=== PATIENT | female | born 1940 | race Caucasian/White ===

== ENCOUNTER 2023-12-21 18:04 | Observation (INO) | payer MEDICARE, MEDICAID, SELFPAY ==
--- NOTE | ~2023-12-21 | CT_ITS ---
EXAMINATION: CT abdomen pelvis wo con DATE: 12/21/2023 23:50 INDICATION: abd pain TECHNIQUE: Computed tomography (CT) of the abdomen and pelvis was performed without intravenous contr ast. Automated exposure control and iterative reconstruction technique were employed. The dose-length product was 1048.33 mGy-cm. COMPARISON: None. FINDINGS: Lower thorax: Aortic valve and coronary artery calcifications. Moderate-sized hiatal hernia. Liver: Normal. Biliary/Gallbladder: Gallbladder is absent. No bile duct dilation. Pancreas: No mass or duct dilation. Spleen: Normal. Adrenals:No mass. Kidneys: No suspicious mass, obstructing stone, or hydronephrosis. Multiple bilateral simple renal cy sts, measuring up to 6.1 cm on the right. GI tract: No small or large bowel dilation. Dilated appendix with surrounding inflammatory change. In tact wall. No abscess. Diverticulosis without diverticulitis. Mesentery/Peritoneum: No ascites, mass, or free air. Retroperitoneum: No mass. Atherosclerotic abdominal aortic and/or arterial calcifications. Pelvis: Distended urinary bladder without wall thickening. Absent uterus. Normal bilateral ovaries. Soft Tissues: Soft tissues and body wall unremarkable. Bones: No acute osseous finding. IMPRESSION: Acute uncomplicated appendicitis. Reviewed, dictated and finalized at location K.
[2023-12-21 18:41] VITALS: BP 120/47; PULSE 68; RESP 20; TEMP 36.6; O2SAT 100
--- NOTE | 2023-12-21 18:45 | ED.ABDPAIN ---
HPI - Abdominal Pain General Chief Complaint: Abdominal Pain <ALBERTA Charlton Last Filed: 12/22/23 01:23> Stated Complaint: abd pain <ALBERTA Charlton Last Filed: 12/22/23 01:23> Time Seen by Provider: 12/21/23 18:45 <Lillian Min PA-C - Last Filed: 12/22/23 01:23> Focused HPI: This is an 83-year-old female that presents to the emergency department for right-sided abdominal pain. This has been going on for a couple of days. Reports associated dysuria. Denies vomiting or diarrhea. GENERAL: Well-appearing, well-nourished, and in no acute distress. HEAD: Normocephalic, atraumatic. CHEST: Clear to auscultation. ?No respiratory distress. HEART: Regular rate and rhythm.? NEURO: ?Alert and oriented x3. Patient screened in triage and initial orders placed.? ?Additional care and disposition to be based upon?diagnostic testing and treatment. <ALBERTA Charlton Last Filed: 12/22/23 01:23> Related Data Home Medications: Home Medications Medication Instructions Recorded Confirmed Allergy Relief (cetirizine) 10 mg PO HS 12/22/23 12/22/23 B12 Active 1,000 mcg PO DAILY 12/22/23 12/22/23 Lasix 40 mg PO EVERY OTHER DAY 12/22/23 12/22/23 Mylanta Gas Maximum Strength 30 ml PO Q4-8H PRN Abdominal 12/22/23 12/22/23 Discomfort acetaminophen 325 mg capsule 650 mg PO Q6-8H PRN pain 12/22/23 12/22/23 atenolol 50 mg tablet 50 mg PO BID hypertension 12/22/23 12/22/23 atorvastatin 40 mg tablet 40 mg PO HS 12/22/23 12/22/23 cholecalciferol (vitamin D3) 125 mcg PO DAILY 12/22/23 12/22/23 citalopram 20 mg PO DAILY 12/22/23 12/22/23 dicyclomine 20 mg PO TID 12/22/23 12/22/23 donepezil 10 mg PO HS 12/22/23 12/22/23 hydralazine 25 mg PO TID 12/22/23 12/22/23 hydroxyzine HCl 25 mg PO DAILY 12/22/23 12/22/23 loperamide 2 mg PO DAILY PRN ibs 12/22/23 12/22/23 magnesium citrate 296 ml PO DAILY PRN Constipation 12/22/23 12/22/23 metoclopramide HCl 10 mg PO BID 12/22/23 12/22/23 mirtazapine 15 mg PO DAILY 12/22/23 12/22/23 omeprazole 40 mg PO DAILY 12/22/23 12/22/23 ondansetron 4 mg PO Q8-10H 12/22/23 12/22/23 oxybutynin chloride 5 mg PO BID 12/22/23 12/22/23 sucralfate 1 g PO QID 12/22/23 12/22/23 tramadol 50 mg PO Q8-12H PRN pain 12/22/23 12/22/23 <Lillian Min PA-C - Last Filed: 12/22/23 01:23> Allergies/Adverse Reactions: Allergies Allergy/AdvReac Type Severity Reaction Status Date / Time iodine Allergy Severe HIVES-SWELL Verified 12/21/23 18:41 ING <Lillian Min PA-C - Last Filed: 12/22/23 01:23> Review of Systems Review of Systems: CONSTITUTIONAL: Denies fever GASTROINTESTINAL: Reports abdominal pain. Denies nausea, vomiting, or diarrhea. GENITOURINARY: Reports dysuria <Lillian Min PA-C - Last Filed: 12/22/23 01:23> All systems reviewed & are unremarkable except as noted in HPI and below <Lillian Min PA-C - Last Filed: 12/22/23 01:23> [facility] Past Medical History Medical History: Medical History History of dementia History of hyperlipidemia History of hypertension <Lillian Min PA-C - Last Filed: 12/22/23 01:23> Social History Social History: Social History Substance use: never <Lillian Min PA-C - Last Filed: 12/22/23 01:23> Exam Narrative: GENERAL: Well-appearing, well-nourished, and in no acute distress. HEAD: Normocephalic, atraumatic. EYES: EOMI. CHEST: Clear to auscultation. No respiratory distress. No wheezes rales or rhonchi HEART: Regular rate and rhythm. No murmur heard. Normal peripheral pulses. ABDOMEN: Soft, nondistended, normal active bowel sounds. Tender to palpation in the right lower quadrant, without guarding EXTREMITIES: Normal range of motion. No edema. SKIN: Warm, dry, no rash. NEURO: No focal deficits. Alert and oriented x3. PSYCH: Normal mood and affect <Lillian Min PA-C - Last Filed:
[2023-12-21 22:43] VITALS: BP 158/96; PULSE 60; RESP 15; O2SAT 99
[2023-12-21 22:47] LABS: Basophils Percent Auto 0.3 % (0.2-1.2); Eosinophils Absolute Auto 0.1 K/mm3 (0-0.3); Eosinophils Percent Auto 1.1 % (0-4.4); Hematocrit 30.5 % (37.0-47.0); Hemoglobin 9.4 g/dL (12.0-15.0); Immature Granulocyte Absolute 0.06 K/mm3 (0.00-0.031); Immature Granulocyte Percent A 0.5 % (0-0.5); Lymphocytes Absolute Auto 3.95 K/mm3 (0.9-3.2); Lymphocytes Percent Auto 31.8 % (18.3-44.2); Mean Corpuscular HGB Conc 30.8 g/dl (32-36); Mean Corpuscular Hemoglobin 22.3 pg (26-34); Mean Corpuscular Volume 72.4 fl (80-100); Mean Platelet Volume 11.2 fl (7.4-10.4); Monocytes Absolute Auto 1.5 K/mm3 (0.1-0.6); Monocytes Percent Auto 11.7 % (2.6-8.5); Neutrophils Absolute Auto 6.8 K/mm3 (1.3-6.7); Neutrophils Percent Auto 54.6 % (45.5-73.1); Platelet Count Result 259 k/mm3 (150-375); Red Blood Count 4.21 M/mm3 (4.2-5.4); Red Cell Distribution Width 17.2 % (11.5-14.5); White Blood Count 12.4 K/mm3 (4.5-10.0)
[2023-12-21 23:07] LABS: Anisocytosis 1+; Hypochromasia 1+; Platelet Estimate Adequate (Adequate); Poikilocytosis 1+; Schistocytes None Seen
[2023-12-21 23:23] LABS: Alanine Aminotransferase 17 U/L (6-35); Albumin Level 3.9 g/dL (3.5-5.1); Alkaline Phosphatase 76 U/L (38-126); Anion Gap 10 mmol/L (4-12); Aspartate Amino Transferase 40 U/L (14-36); Bilirubin,Total 0.2 mg/dL (0.2-1.3); Blood Urea Nitrogen 22 mg/dL (7-17); Calcium 8.7 mg/dL (8.4-10.2); Carbon Dioxide 28 mmol/L (22-30); Chloride 95 mmol/L (98-107); Estimated CRCL calculation 32 ml/min; Estimated Glomerular Filt Rate 43; Glucose 103 mg/dL (65-110); Lipase 123 U/L (23-300); Potassium 3.9 mmol/L (3.4-5.0); Sodium 133 mmol/L (137-145)
[2023-12-22] VITALS (17 sets, daily range): BP systolic 116–174; BP diastolic 49–83; PULSE 55–66; RESP 10–18; TEMP 35.8–36.4; O2SAT 94–100; BMI 41.8
--- NOTE | 2023-12-22 00:09 | PC.NURSE ---
Patient advises she urinated in her pants. Patient cleaned up and repositioned.
[2023-12-22] MEDS: PIPERACILLN/TAZ 3.375GM/NS50ML 3.375 GM/50 ML BAG IVPB (00:51)
--- NOTE | 2023-12-22 00:52 | PM.IMHP ---
H&P: HPI History of Present Illness Date/Time: 12/22/23 00:52 Chief Complaint: abdominal pain Narrative: This is an 83-year-old female with past medical history significant for iron deficiency anemia, obesity, DJD, dyslipidemia. Patient presents to the emergency room due to right lower quadrant pain, denies any nausea, vomiting, diarrhea, fevers, rigors, chills. patient found to have acute uncomplicated appendicitis on CT of abdomen and pelvis EXAMINATION: CT abdomen pelvis wo con DATE: 12/21/2023 23:50 INDICATION: abd pain TECHNIQUE: Computed tomography (CT) of the abdomen and pelvis was performed without intravenous contrast. Automated exposure control and iterative reconstruction technique were employed. The dose-length product was 1048.33 mGy-cm. COMPARISON: None. FINDINGS: Lower thorax: Aortic valve and coronary artery calcifications. Moderate-sized hiatal hernia. Liver: Normal. Biliary/Gallbladder: Gallbladder is absent. No bile duct dilation. Pancreas: No mass or duct dilation. Spleen: Normal. Adrenals:No mass. Kidneys: No suspicious mass, obstructing stone, or hydronephrosis. Multiple bilateral simple renal cysts, measuring up to 6.1 cm on the right. GI tract: No small or large bowel dilation. Dilated appendix with surrounding inflammatory change. Intact wall. No abscess. Diverticulosis without diverticulitis. Mesentery/Peritoneum: No ascites, mass, or free air. Retroperitoneum: No mass. Atherosclerotic abdominal aortic and/or arterial calcifications. Pelvis: Distended urinary bladder without wall thickening. Absent uterus. Normal bilateral ovaries. Soft Tissues: Soft tissues and body wall unremarkable. Bones: No acute osseous finding. IMPRESSION: Acute uncomplicated appendicitis. Review of Systems Review of Systems: RLQ pain [facility] Past Medical History Medical History (Updated 12/22/23 @ 01:13 by Lillian Min PA-C) History of dementia History of hyperlipidemia History of hypertension Social History Social History (Updated 12/22/23 @ 00:25 by Lillian Min PA-C) Substance use: never Meds Home Medications and Allergies Allergies Allergy/AdvReac Type Severity Reaction Status Date / Time iodine Allergy Severe HIVES-SWELL Verified 12/21/23 18:41 ING Vital Signs Vital Signs - 24 hr 12/21/23 18:41 12/21/23 22:43 12/22/23 00:26 Temperature 97.8 F Pulse Rate 68 60 60 Respiratory Rate 20 15 15 Blood Pressure 120/47 L 158/96 H 116/76 Pulse Oximetry 100 99 100 Oxygen Delivery Room Air H&P: Results Labs Labs: Short CBC 12/21/23 Range/Units 22:38 WBC 12.4 H (4.5-10.0) K/mm3 Hgb 9.4 L (12.0-15.0) g/dL Hct 30.5 L (37.0-47.0) % Plt Count 259 (150-375) k/mm3 BMP 12/21/23 22:38 Sodium 133 L Potassium 3.9 Chloride 95 L Carbon Dioxide 28 BUN 22 H Creatinine 1.20 H Glucose 103 Calcium 8.7 Liver Function 12/21/23 Range/Units 22:38 Total Bilirubin 0.2 (0.2-1.3) mg/dL AST 40 H (14-36) U/L ALT 17 (6-35) U/L Alkaline Phosphatase 76 (38-126) U/L Albumin 3.9 (3.5-5.1) g/dL Assessment and Plan Assessment and plan (1) Appendicitis: Code(s): K37 - Unspecified appendicitis Status: Acute Assessment and Plan: admit to regular medical floor NPO General surgery consult started on Zosyn (2) Abdominal pain: Code(s): R10.9 - Unspecified abdominal pain Status: Acute Assessment and Plan: likely secondary to 1. (3) Hypochromic microcytic anemia: Code(s): D50.9 - Iron deficiency anemia, unspecified Status: Acute Assessment and Plan: Follow-up in outpatient setting (4) CKD (chronic kidney disease): Code(s): N18.9 - Chronic kidney disease, unspecified Status: Acute Assessment and Plan: continue to monitor BUN and creatinine Hospitalist MIPS Advance Care Plan I have confirmed that the patient's Adva
[2023-12-22] MEDS: ONDANSETRON INJ 4 MG/2 ML VIAL IV PUSH (01:34)
[2023-12-22] MEDS: MORPHINE SULFATE (*CRX) 2 MG/ML INJ IV PUSH (01:34)
--- NOTE | 2023-12-22 01:52 | PC.NURSE ---
Due to the patient having a history of dementia, Dr. Schultz requested that this RN obtain consent from family for a laparoscopic appendectomy. Family is very hesitant to sign consent because they have not met or spoke with the surgeon. This RN and EDP-Lillian Min attempted to answer questions, but family ultimately decided they were not comfortable signing consent until speaking with the operating surgeon. They were advised to come back early in the morning if they wish to speak with the surgeon.
--- NOTE | 2023-12-22 03:00 | ADMGEN ---
This patient, Susana Napoles, was admitted to 3 [facility] Surg Room 304-02. Patient/family oriented to hospital policies and general routines including ID bracelet, bed and alarms, visiting hours, pain management, procedures, bathroom and other care routines, personal items, smoking policy, room service/diet, and visiting hours. Information on how to activate the Rapid Response Team has been discussed. Patient/Family are encouraged to report perceived risks to care and to ask questions if they do not understand what they are told or what they should do.
[2023-12-22] MEDS: PIPERACILLIN/TAZ 2.25G/NS 50ML 2.25 GM/50 ML BAG IVPB (06:08)
[2023-12-22 06:11] LABS: Hematocrit 32.3 % (37.0-47.0); Hemoglobin 9.5 g/dL (12.0-15.0); Mean Corpuscular HGB Conc 29.4 g/dl (32-36); Mean Corpuscular Hemoglobin 21.8 pg (26-34); Mean Corpuscular Volume 74.3 fl (80-100); Mean Platelet Volume 11.4 fl (7.4-10.4); Platelet Count Result 220 k/mm3 (150-375); Red Blood Count 4.35 M/mm3 (4.2-5.4); Red Cell Distribution Width 17.2 % (11.5-14.5); White Blood Count 9.6 K/mm3 (4.5-10.0)
[2023-12-22 06:18] LABS: Prothrombin Time 13.9 Seconds (11.1-14.7)
[2023-12-22 06:25] LABS: Alanine Aminotransferase 15 U/L (6-35); Albumin Level 3.6 g/dL (3.5-5.1); Alkaline Phosphatase 67 U/L (38-126); Anion Gap 10 mmol/L (4-12); Aspartate Amino Transferase 24 U/L (14-36); Bilirubin,Total 0.3 mg/dL (0.2-1.3); Blood Urea Nitrogen 19 mg/dL (7-17); Calcium 8.5 mg/dL (8.4-10.2); Carbon Dioxide 26 mmol/L (22-30); Chloride 100 mmol/L (98-107); Estimated CRCL calculation 37 ml/min; Estimated Glomerular Filt Rate 47; Glucose 82 mg/dL (65-110); Potassium 3.6 mmol/L (3.4-5.0); Sodium 136 mmol/L (137-145)
--- NOTE | 2023-12-22 07:47 | ECG_ITS ---
Test Date: 2023-12-22 08:05:33 Measurements Intervals [place] Rate: 54 P: 74 [place]: 188 QRS: 16 QRSD: 97 T: 47 QT: 455 QTc: 434 Interpretive Statements SINUS BRADYCARDIA DELAYED PRECORDIAL R/S TRANSITION MINIMAL Q WAVES- LATERAL LEADS CONSIDER INFERIOR INFARCT, AGE INDETERMINATE NONSPECIFIC ST-T WAVE ABNORMALITY- LAT/HIGH LAT LEADS BASELINE ARTIFACT- I, II, V5-V6 ABNORMAL ECG No previous ECG available for comparison Electronically Signed On 12-22-2023 10:36:25 CDT by Shun Matthews D.O.
--- NOTE | 2023-12-22 08:02 | WPDANESEPPF ---
Anes - Initial Pre Proc Eval Procedure: Operation Date: 12/22/23 08:00 Proposed Procedures p Laparoscopic Appendectomy, possible Open - Calixto Schultz MD Date/Time: 12/22/23 08:02 Surgeon: Russel Escamilla MD Pre Op Diagnosis: abd pain Patient Data Age: 83 Gender: F Height: 1.55 m Weight: 100.3 kg Last Vital Signs Temp 96.5 F L 12/22/23 03:24 Pulse 55 L 12/22/23 03:24 Resp 14 12/22/23 03:24 BP 150/64 H 12/22/23 03:24 Pulse Ox 98 12/22/23 03:24 O2 Del Method Room Air 12/21/23 18:41 Allergies Allergy/AdvReac Type Severity Reaction Status Date / Time iodine Allergy Severe HIVES-SWELL Verified 12/21/23 18:41 ING Home Medications Medication Instructions Recorded Confirmed Type Allergy Relief (cetirizine) 10 mg PO HS 12/22/23 12/22/23 History B12 Active 1,000 mcg PO DAILY 12/22/23 12/22/23 History Lasix 40 mg PO EVERY OTHER DAY 12/22/23 12/22/23 History Mylanta Gas Maximum Strength 30 ml PO Q4-8H PRN Abdominal 12/22/23 12/22/23 History Discomfort acetaminophen 325 mg capsule 650 mg PO Q6-8H PRN pain 12/22/23 12/22/23 History atenolol 50 mg tablet 50 mg PO BID hypertension 12/22/23 12/22/23 History atorvastatin 40 mg tablet 40 mg PO HS 12/22/23 12/22/23 History cholecalciferol (vitamin D3) 125 mcg PO DAILY 12/22/23 12/22/23 History citalopram 20 mg PO DAILY 12/22/23 12/22/23 History dicyclomine 20 mg PO TID 12/22/23 12/22/23 History donepezil 10 mg PO HS 12/22/23 12/22/23 History hydralazine 25 mg PO TID 12/22/23 12/22/23 History hydroxyzine HCl 25 mg PO DAILY 12/22/23 12/22/23 History loperamide 2 mg PO DAILY PRN ibs 12/22/23 12/22/23 History magnesium citrate 296 ml PO DAILY PRN Constipation 12/22/23 12/22/23 History metoclopramide HCl 10 mg PO BID 12/22/23 12/22/23 History mirtazapine 15 mg PO DAILY 12/22/23 12/22/23 History omeprazole 40 mg PO DAILY 12/22/23 12/22/23 History ondansetron 4 mg PO Q8-10H 12/22/23 12/22/23 History oxybutynin chloride 5 mg PO BID 12/22/23 12/22/23 History sucralfate 1 g PO QID 12/22/23 12/22/23 History tramadol 50 mg PO Q8-12H PRN pain 12/22/23 12/22/23 History Laboratory Tests 12/21/23 12/22/23 22:38 05:54 WBC 12.4 H K/mm3 9.6 K/mm3 (4.5-10.0) (4.5-10.0) RBC 4.21 M/mm3 4.35 M/mm3 (4.2-5.4) (4.2-5.4) Hgb 9.4 L g/dL 9.5 L g/dL (12.0-15.0) (12.0-15.0) Hct 30.5 L % 32.3 L % (37.0-47.0) (37.0-47.0) MCV 72.4 L fl 74.3 L fl (80-100) (80-100) MCH 22.3 L pg 21.8 L pg (26-34) (26-34) MCHC 30.8 L g/dl 29.4 L g/dl (32-36) (32-36) RDW 17.2 H % 17.2 H % (11.5-14.5) (11.5-14.5) Plt Count 259 k/mm3 220 k/mm3 (150-375) (150-375) MPV 11.2 H fl 11.4 H fl (7.4-10.4) (7.4-10.4) Immature Gran % (Auto) 0.5 % (0-0.5) Neut % (Auto) 54.6 % (45.5-73.1) Lymph % (Auto) 31.8 % (18.3-44.2) [place] % (Auto) 11.7 H % (2.6-8.5) Eos % (Auto) 1.1 % (0-4.4) Baso % (Auto) 0.3 % (0.2-1.2) Lymph # (Auto) 3.95 H K/mm3 (0.9-3.2) [place] # (Auto) 1.5 H K/mm3 (0.1-0.6) Eos # (Auto) 0.1 K/mm3 (0-0.3) Baso # (Auto) 0.0 K/mm3 (0.0-0.1) Abs Immat Gran (auto) 0.06 H K/mm3 (0.00-0.031) Absolute Neuts (auto) 6.8 H K/mm3 (1.3-6.7) Absolute Nucleated RBC 0.000 K/mm3 (0.0-0.012) Nucleated RBC % 0.0 % (0.0-0.2) Platelet Estimate Adequate (Adequate) Hypochromasia 1+ Poikilocytosis 1+ Anisocytosis 1+ Schistocytes None seen PT 13.9 Seconds (11.1-14.7) INR 1.0 Sodium 133 L mmol/L 136 L mmol/L (137-145) (137-145) Potassium 3.9 mmol/L 3.6 mmol/L (3.4-5.0) (3.4-5.0) Chloride 95 L mmol/L 100 mmol/L (98-107) (98-107) Carbon Dioxide 28 mmol/L 26 mmol/L (22-30) (22-30) Anion Gap 10 mmol/L 10 mmol/L (4-12) (4-12) BUN 22 H mg/dL 19 H mg/dL (7-17) (7-17) Creatinine 1.20 H mg/dL 1.10
[2023-12-22] MEDS: LACTATED RINGERS 1,000 ML 30 ML IV CONT ×2 (08:05→09:40)
--- NOTE | 2023-12-22 08:09 | WPDHPUPDATE1 ---
History and Physical Update Update Date/Time: 12/22/23 08:09 History and Physical has been reviewed, including an updated exam of the patient. There are NO changes in the patient's condition. Risks, benefits, and alternatives have been discussed and questions answered. Patient agrees to proceed with procedure.
--- NOTE | 2023-12-22 08:10 | WPDCN ---
Assessment and Plan Assessment and plan (1) Acute appendicitis: Qualifiers: Acute appendicitis type: with localized peritonitis Appendicitis abscess presence: without abscess Appendicitis gangrene presence: without gangrene Appendicitis perforation presence: without perforation Qualified Code(s): K35.30 - Acute appendicitis with localized peritonitis, without perforation or gangrene Code(s): K35.80 - Unspecified acute appendicitis Status: Acute Assessment and Plan: Patient appears to have acute uncomplicated appendicitis. CT scan shows no periappendiceal abscess or perforation. White blood cell count is mildly elevated at around 12 - [id number]. Examination is consistent with acute appendicitis with moderate tenderness in right lower quadrant to palpation with some mild guarding. No generalized peritoneal signs. I have discussed proceeding with a laparoscopic appendectomy possible open appendectomy verses medical management with IV antibiotics and prolonged hospital admission and about a 40% chance of recurrent appendicitis within the next 2 years with the patient's . He understands and wishes to proceed with surgery for his who has dementia and cannot make the decision for herself. HPI Data of Consult Date/Time: 12/22/23 08:10 Requesting Physician: Russel Escamilla MD Primary Care Provider: Krishan BalderramaMD Consult Narrative Reason for consult: Acute appendicitis Narrative: Susana Napoles is a 83 year old female who is a skilled nursing patient. According to her she is having some pain in the right lower quadrant breast couple of days. White blood cell count of 12-13,000 emergency room which she was brought for having the pain. No fever. CT scan abdomen pelvis showed a dilated inflamed appendix with periappendiceal inflammation. No perforation or free air or abscess was seen. Patient is not on any blood thinners. Patient had previous cholecystectomy many years ago. Review of Systems Review of Systems: The remainder of the review of systems to include constitutional, HEENT, cardiovascular, respiratory, GI, , integumentary, musculoskeletal, endocrine, immunologic, hematologic, psychiatric, and neurologic are all negative except for which is mentioned above in the HPI. [facility] Past Medical History Medical History History of dementia History of hyperlipidemia History of hypertension Social History Social History Substance use: never Meds Home Medications and Allergies Home Medications Medication Instructions Recorded Confirmed Type Allergy Relief (cetirizine) 10 mg PO HS 12/22/23 12/22/23 History B12 Active 1,000 mcg PO DAILY 12/22/23 12/22/23 History Lasix 40 mg PO EVERY OTHER DAY 12/22/23 12/22/23 History Mylanta Gas Maximum Strength 30 ml PO Q4-8H PRN Abdominal 12/22/23 12/22/23 History Discomfort acetaminophen 325 mg capsule 650 mg PO Q6-8H PRN pain 12/22/23 12/22/23 History atenolol 50 mg tablet 50 mg PO BID hypertension 12/22/23 12/22/23 History atorvastatin 40 mg tablet 40 mg PO HS 12/22/23 12/22/23 History cholecalciferol (vitamin D3) 125 mcg PO DAILY 12/22/23 12/22/23 History citalopram 20 mg PO DAILY 12/22/23 12/22/23 History dicyclomine 20 mg PO TID 12/22/23 12/22/23 History donepezil 10 mg PO HS 12/22/23 12/22/23 History hydralazine 25 mg PO TID 12/22/23 12/22/23 History hydroxyzine HCl 25 mg PO DAILY 12/22/23 12/22/23 History loperamide 2 mg PO DAILY PRN ibs 12/22/23 12/22/23 History magnesium citrate 296 ml PO DAILY PRN Constipation 12/22/23 12/22/23 History metoclopramide HCl 10 mg PO BID 12/22/23 12/22/23 History mirtazapine 15 mg PO DAILY 12/22/23 12/22/23 History omeprazole 40 mg PO DAILY 12/22/23 12/22/23 History ondansetron 4 mg PO Q8-10H 12/22/23 12/22/23 History oxybutynin chloride 5 mg PO BID 12/22/23 12/22/23 Histor
--- NOTE | 2023-12-22 08:15 | SUR.PHASEI ---
FAMILY AT BEDSIDE, SPOKE WITH DR. CHOI AND DR. VILLASENOR. PATIENT IN NO ACUTE DISTRESS. ORIENTED X 3. DENIES PAIN. TRANSPORTED TO OR VIA BED.
[2023-12-22] MEDS: LIDO 1%/EPINEPHRINE 1:100,000 20 ML VIAL 30 ML INFILTRATE (08:55)
[2023-12-22] MEDS: BUPivacaine HCL 0.5% PF 30 ML VIAL INFILTRATE (08:56)
--- NOTE | 2023-12-22 09:04 | PC.NURSE ---
To OR per [Kimberly hunt and Mylajagruti randhawa], IV [ ]. Report given to [ ].Alejandro the night nurse gave report to OR. Pt left at 0750.
--- NOTE | 2023-12-22 09:50 | W.PM.PROC2 ---
Procedure Note - Detailed Date of Procedure 12/22/23 Pre-op Diagnosis Acute appendicitis Post-op Diagnosis Same Procedure Performed Laparoscopic appendectomy Surgeon Calixto Schultz MD Legal Specialist [facility] [place] Anesthesia General Indications Patient is a 3-year-old female [place]. She for last couple days been having some right lower quadrant abdominal pain. She was brought to the emergency room and found to have a mildly elevated white blood cell count around 13,000. CT scan abdomen pelvis showed a dilated and inflamed appendix consistent with uncomplicated non perforated appendicitis. She presents now for emergent laparoscopic appendectomy. Findings Appendix was moderately inflamed. It was not perforated and not gangrenous. There is no periappendiceal abscess. There were few omental adhesions prior paramedian incision many years ago for her open cholecystectomy. Adhesions were taken down easily with laparoscopic adhesiolysis and fabian. Description of Procedure After informed consent was obtained patient brought to the operating room she was placed supine position and general endotracheal anesthesia was administered. The abdomen was then prepped and draped usual sterile fashion after placement of Villatoro catheter to decompress the bladder. A time-out was then performed correctly identifying the patient as well as procedure to be performed. She was already on scheduled IV antibiotics. I entered the abdomen left upper quadrant utilizing a 5mm Optiview port. Once inside the abdomen insufflated to adequate pneumoperitoneum of 15mmHg of CO2. There were some omental adhesions to the right lower quadrant of the abdomen and the right lateral abdominal wall. A 5mm left-sided abdominal wall trocar was then placed and then utilizing laparoscopic fabian a for laparoscopic easy lysis of these omental adhesions off the anterior abdominal wall. Once this was done and then placed additional trocar ports included a 12mm periumbilical trocar port and then 2 more 5mm trocar ports in the suprapubic area and the right lower quadrant. I then utilizing laparoscopic instruments reflected the omentum cephalad. This exposed the cecum. I was then able to identify the inflamed appendix attached to the right lateral abdominal lower quadrant wall. At the tip it was apparent to the right fallopian tube and ovary. With blunt dissection utilizing laparoscopic instruments I was able to separate the ovary in the fallopian tube from the appendix. I then identified the base of the appendix and the base appeared to be without any inflammation. The appendix was elevated laparoscopic grasper and then a defect was made through the mesoappendix just at the base. A 45mm Endo-BRIAN stapler was then used to divide the appendix flush with the cecum. A vascular reload to the Endo-BRIAN stapler was then used to divide the mesoappendix. The appendix was then placed in Endo-Catch bag and brought out through the 12mm periumbilical trocar port. It was passed off the table sent to pathology for examination. There was a small amount of bleeding from the staple line to the mesoappendix placed this was treated electrocautery to achieve hemostasis. I then irrigated the right lower quadrant the abdomen sterile saline solution hemostasis on the staple lines were good. I then removed all the trocar ports under visualization all port sites appeared hemostatic. I then allowed the abdomen decompressed. The 12mm periumbilical trocar port fascial defect was then closed at the fascial level utilizing 0 Vicryl suture. The skin edges in all the port sites were then approximated utilizing a running subcuticular 4-0 Monocryl suture. The incisions were then cleaned the skin glue sterile dressings were applied. The patient tolerated the procedure well no complications. All sponges, needles, and instrument counts were correct at the end procedure. EBL was _15__cc. The patient was awakened an
[2023-12-22] MEDS: fentaNYL CITRATE INJ (*CRX) 100 MCG/2 ML VIAL 25 MCG IV PUSH ×2 (09:59→10:11)
--- NOTE | 2023-12-22 10:55 | PC.NURSE ---
Returned from OR per [ ]. Report received from [[email or web address] in pacu].
[2023-12-22] MEDS: CHOLECALCIFEROL 5,000 UNITS TABLET 5000 UNITS BY MOUTH (11:24)
[2023-12-22] MEDS: CYANOCOBALAMIN 1,000 MCG TABLET 1000 MCG PO (11:25)
[2023-12-22] MEDS: MIRTAZAPINE 15 MG TABLET PO (11:25)
[2023-12-22] MEDS: ENOXAPARIN 40 MG/0.4 ML SYRINGE SUB-Q (11:26)
[2023-12-22] MEDS: CITALOPRAM HYDROBROMIDE 20 MG TABLET PO (11:26)
[2023-12-22] MEDS: oxyCODONE HCL (*CRX) 5 MG TAB IR PO (11:26)
[2023-12-22] MEDS: SUCRALFATE 1 GM TABLET PO ×3 (11:29→21:03)
[2023-12-22] MEDS: hydrALAZINE HCL 25 MG TABLET PO ×2 (12:47→16:33)
[2023-12-22] MEDS: DICYCLOMINE HCL 10 MG CAPSULE 20 MG PO ×2 (12:47→16:33)
[2023-12-22] MEDS: oxyBUTYnin CHLORIDE 5 MG TABLET PO (16:33)
[2023-12-22] MEDS: atenoloL 50 MG TABLET PO (16:34)
[2023-12-22] MEDS: METOCLOPRAMIDE HCL 10 MG TABLET PO (16:34)
[2023-12-22] MEDS: PANTOPRAZOLE 40 MG TABLET PO (16:34)
[2023-12-22] MEDS: HYDROcodone/acetaminophen (*CRX) 5-325 MG TABLET 1 TAB PO (16:40)
[2023-12-22 18:49] LABS: Appearance Urine Clear (Clear); Bacteria Urine None Seen /hpf; Bilirubin Urine Negative (Negative); Blood Urine Negative (Negative); Color Urine Yellow (Yellow); Glucose Urine UA Negative (Negative); Ketones Urine Negative (Negative); Leukocyte Esterase Ur Trace LEU/UL (Negative); Need Manual Microscopic Reviewed; Nitrate Urine Negative (Negative); Non Pathogenic Casts 0-2; Protein Urine Trace mg/dL (Negative); Specific Grav Ur 1.014 (1.001-1.035); Squamous Epithelial Cell Urine None Seen /hpf (Few); Urobilinogen Urine 0.2 mg/dL (<2.0); pH Urine 6.5 (5.0-9.0)
[2023-12-22 19:01] LABS: Add Urine Microscopic? YES
[2023-12-22] MEDS: ATORVASTATIN 40 MG TABLET PO (21:03)
[2023-12-22] MEDS: LORATADINE 10 MG TABLET PO (21:03)
[2023-12-22] MEDS: DONEPEZIL HCL 10 MG TABLET PO (21:03)
[2023-12-23 04:00] VITALS: BP 142/52; PULSE 60; RESP 14; TEMP 36.3; O2SAT 96
[2023-12-23 06:22] LABS: Basophils Percent Auto 0.3 % (0.2-1.2); Eosinophils Percent Auto 0.1 % (0-4.4); Hematocrit 29.9 % (37.0-47.0); Immature Granulocyte Absolute 0.07 K/mm3 (0.00-0.031); Immature Granulocyte Percent A 0.6 % (0-0.5); Lymphocytes Absolute Auto 2.76 K/mm3 (0.9-3.2); Lymphocytes Percent Auto 22.9 % (18.3-44.2); Mean Corpuscular HGB Conc 30.1 g/dl (32-36); Mean Corpuscular Hemoglobin 22.3 pg (26-34); Mean Corpuscular Volume 74.2 fl (80-100); Mean Platelet Volume 11.7 fl (7.4-10.4); Monocytes Absolute Auto 1.2 K/mm3 (0.1-0.6); Monocytes Percent Auto 10.2 % (2.6-8.5); Neutrophils Percent Auto 65.9 % (45.5-73.1); Platelet Count Result 252 k/mm3 (150-375); Red Blood Count 4.03 M/mm3 (4.2-5.4); Red Cell Distribution Width 17.3 % (11.5-14.5); White Blood Count 12.1 K/mm3 (4.5-10.0)
[2023-12-23] MEDS: SUCRALFATE 1 GM TABLET PO ×2 (06:34→10:30)
[2023-12-23 06:39] LABS: Anion Gap 8 mmol/L (4-12); Blood Urea Nitrogen 17 mg/dL (7-17); Calcium 8.9 mg/dL (8.4-10.2); Carbon Dioxide 29 mmol/L (22-30); Chloride 98 mmol/L (98-107); Estimated CRCL calculation 37 ml/min; Estimated Glomerular Filt Rate 47; Glucose 88 mg/dL (65-110); Potassium 3.9 mmol/L (3.4-5.0); Sodium 135 mmol/L (137-145)
[2023-12-23] MEDS: ACETAMINOPHEN 500 MG TABLET 1000 MG PO (07:10)
[2023-12-23 08:00] VITALS: BP 125/53; PULSE 58; PULSE 61; RESP 16; TEMP 36.3; O2SAT 97; O2SAT 98
[2023-12-23] MEDS: ENOXAPARIN 40 MG/0.4 ML SYRINGE SUB-Q (08:00)
[2023-12-23] MEDS: FUROSEMIDE 40 MG TABLET PO (08:01)
[2023-12-23] MEDS: MIRTAZAPINE 15 MG TABLET PO (08:01)
[2023-12-23] MEDS: oxyBUTYnin CHLORIDE 5 MG TABLET PO (08:01)
[2023-12-23] MEDS: PANTOPRAZOLE 40 MG TABLET PO (08:01)
[2023-12-23] MEDS: CHOLECALCIFEROL 5,000 UNITS TABLET 5000 UNITS BY MOUTH (08:01)
[2023-12-23] MEDS: CITALOPRAM HYDROBROMIDE 20 MG TABLET PO (08:01)
[2023-12-23 08:02] VITALS: PULSE 58
[2023-12-23] MEDS: CYANOCOBALAMIN 1,000 MCG TABLET 1000 MCG PO (08:02)
[2023-12-23] MEDS: atenoloL 50 MG TABLET PO (08:02)
[2023-12-23] MEDS: DICYCLOMINE HCL 10 MG CAPSULE 20 MG PO ×2 (08:02→12:26)
[2023-12-23] MEDS: hydrOXYzine HCL 25 MG TABLET PO (08:02)
[2023-12-23] MEDS: hydrALAZINE HCL 25 MG TABLET PO ×2 (08:02→12:26)
[2023-12-23] MEDS: METOCLOPRAMIDE HCL 10 MG TABLET PO (08:02)
[2023-12-23 09:49] LABS: Procalcitonin 0.1 ng/mL
--- NOTE | 2023-12-23 11:51 | WPDPN ---
Progress Note: A&P Assessment and Plan (1) Acute appendicitis: Qualifiers: Acute appendicitis type: with localized peritonitis Appendicitis abscess presence: without abscess Appendicitis gangrene presence: without gangrene Appendicitis perforation presence: without perforation Qualified Code(s): K35.30 - Acute appendicitis with localized peritonitis, without perforation or gangrene Code(s): K35.80 - Unspecified acute appendicitis Status: Acute Assessment and Plan: Resolved. Postop day 1 after laparoscopic appendectomy. Tolerating regular diet and pain in the right lower quadrant has resolved. I think she can be discharged to a care facility today. Follow-up in the office and 2 weeks as noted instructions. Subjective Date/time seen: 12/23/23 11:51 Interval history: Patient is doing well today. Postop day 1 after laparoscopic appendectomy. No issues today. She tolerated regular diet. Right lower quadrant pain is now resolved. Seems to be medically stable. Exam GI: Other: Abdomen is soft and obese. Port site incisions are healing well without any redness or drainage. Minor tenderness around the port sites but right lower quadrant tenderness has now resolved. Objective Data Vital Signs Vital Signs: Vital Signs - 24 hr 12/22/23 16:00 12/22/23 16:34 12/22/23 12:50 Temperature 36.4 C 36.2 C L Pulse Rate 62 62 60 Respiratory Rate 16 14 Blood Pressure 174/83 H 143/53 H Pulse Oximetry 99 94 Oxygen Delivery 12/22/23 20:00 12/22/23 23:50 12/23/23 04:00 Temperature 36.2 C L 36.2 C L 36.3 C L Pulse Rate 62 60 60 Respiratory Rate 14 14 14 Blood Pressure 141/60 H 133/62 142/52 H Pulse Oximetry 96 96 96 Oxygen Delivery 12/23/23 08:02 12/23/23 08:00 12/23/23 08:00 Temperature 36.3 C L Pulse Rate 58 L 58 L 61 Respiratory Rate 16 Blood Pressure 125/53 L Pulse Oximetry 98 97 Oxygen Delivery Room Air Intake/Output Intake/Output: Intake & Output 12/20/23 12/21/23 12/22/23 12/23/23 23:59 23:59 23:59 23:59 Intake Total 690 540 Output Total 150 400 Balance 540 140 Meds/Results Medications: Active Medications Generic Name Dose Route Start Last Admin Trade Name Freq PRN Reason Stop Dose Admin Acetaminophen 1,000 mg 12/22/23 10:58 12/23/23 07:10 Acetaminophen 500 Mg Tablet PO 1,000 mg Q6H PRN Administration Mild Pain (1-3) or Fever Hydrocodone Bitart/Acetaminophen 1 tab 12/22/23 10:58 12/22/23 16:40 Hydrocodone/Acetaminophen (*Crx) 5-325 Mg Tablet PO 1 tab Q4H PRN Administration Pain Rated 4-6 Al Hydrox/Mg Hydrox/Simethicone 30 ml 12/22/23 11:17 Mag Hydrox/Al Hydrox/Simeth 30 Ml Udc PO Q6H PRN Indigestion Atenolol 50 mg 12/22/23 17:00 12/23/23 08:02 Atenolol 50 Mg Tablet PO 50 mg BID CARRIE Administration Atorvastatin Calcium 40 mg 12/22/23 21:00 12/22/23 21:03 Atorvastatin 40 Mg Tablet PO 40 mg HS CARRIE Administration Citalopram Hydrobromide 20 mg 12/22/23 12:00 12/23/23 08:01 Citalopram Hydrobromide 20 Mg Tablet PO 20 mg DAILY CARRIE Administration Cyanocobalamin 1,000 mcg 12/22/23 12:00 12/23/23 08:02 Cyanocobalamin 1,000 Mcg Tablet PO 1,000 mcg QAM CARRIE Administration Dicyclomine HCl 20 mg 12/22/23 13:00 12/23/23 08:02 Dicyclomine Hcl 10 Mg Capsule PO 20 mg TID CARRIE Administration Donepezil HCl 10 mg 12/22/23 21:00 12/22/23 21:03 Donepezil Hcl 10 Mg Tablet PO 10 mg HS CARRIE Administration Enoxaparin Sodium 40 mg 12/22/23 10:58 12/23/23 08:00 Enoxaparin 40 Mg/0.4 Ml Syringe SUB-Q 40 mg DAILY CARRIE Administration Furosemide 40 mg 12/23/23 09:00 12/23/23 08:01 Furosemide 40 Mg Tablet PO 40 mg Q48HR CARRIE Administration Hydralazine HCl 25 mg 12/22/23 13:00 12/23/23 08:02 Hydralazine Hcl 25 Mg Tablet PO 25 mg TID CARRIE Administration Hydroxyzine HCl 25 mg 12/23/23 09:00 12/23/23 08:02 [place]
[2023-12-23 12:49] LABS: SARS-CoV-2 RNA PCR Negative (Negative)
--- NOTE | 2023-12-23 14:17 | PM.DS ---
DS: Admitting Diagnosis Discharge Date 12/23/23 Admitting Diagnosis Acute appendicitis DS: Discharge Diagnosis Discharge Diagnosis (1) Acute appendicitis: Qualifiers: Acute appendicitis type: with localized peritonitis Appendicitis abscess presence: without abscess Appendicitis gangrene presence: without gangrene Appendicitis perforation presence: without perforation Qualified Code(s): K35.30 - Acute appendicitis with localized peritonitis, without perforation or gangrene Code(s): K35.80 - Unspecified acute appendicitis Status: Acute DS: Summary Hospital Course Hospital Course: This 83-year-old female with a past medical history dementia, resides at half-way facility permanently, and other comorbidities who was admitted on 12/21 with acute appendicitis. She was brought in with a chief complaint of right lower quadrant pain. Found to have acute uncomplicated appendicitis on CT of abdomen pelvis. On 12/21 Dr. Schultz general surgery performed a laparoscopic appendectomy without complications. The patient is discharged to home in stable condition on 12/22 as she is tolerating diet does not complain of abdominal pain and she has a benign abdominal exam. She will have a repeat CBCD in 2-3 days to monitor a mild leukocytosis although her procalcitonin is normal. She will follow-up with Dr. Schultz in the office. Status at Discharge Overall status at discharge: patient is back to baseline Time Spent with Patient Time attestation: Total time spent providing and/or coordinating discharge services: Time spent: Greater than 30 minutes Exam Const: General: comfortable and no acute distress Eyes: Pupils: Equal, round and reactive pupils present Neck: Neck: supple Resp: Effort & Inspection: normal respiratory effort Auscultation: clear to auscultation bilaterally Cardio: Rate: regular rate Rhythm: regular rhythm GI: Inspection: non-distended GI Palp: Yes Soft to palpation, No Tenderness to palpation present (GI) and No Guarding due to palpation present (GI) Auscultation: normal bowel sounds Extrem: General: no edema DS: Data Data Completed and Pending Pending studies at discharge: Pending at discharge 12/22/23 08:52 Surgical [PTH] Routine Labs on day of discharge: Labs from last 24 hours 12/23/23 12/23/23 12/23/23 12:08 05:46 05:42 WBC 12.1 H RBC 4.03 L Hgb 9.0 L Hct 29.9 L MCV 74.2 L MCH 22.3 L MCHC 30.1 L RDW 17.3 H Plt Count 252 MPV 11.7 H Immature Gran % (Auto) 0.6 H Neut % (Auto) 65.9 Lymph % (Auto) 22.9 [place] % (Auto) 10.2 H Eos % (Auto) 0.1 Baso % (Auto) 0.3 Lymph # (Auto) 2.76 [place] # (Auto) 1.2 H Eos # (Auto) 0.0 Baso # (Auto) 0.0 Abs Immat Gran (auto) 0.07 H Absolute Neuts (auto) 8.0 H Absolute Nucleated RBC 0.000 Nucleated RBC % 0.0 Sodium 135 L Potassium 3.9 Chloride 98 Carbon Dioxide 29 Anion Gap 8 BUN 17 Creatinine 1.10 H Estim Creat Clear Calc 37 Estimated GFR 47 L Glucose 88 Calcium 8.9 Magnesium 2.0 Procalcitonin 0.1 Urine Color Urine Appearance Urine pH Ur Specific [place] Urine Protein Urine Glucose (UA) Urine Ketones Ur Blood (Man) Urine Nitrate Urine Bilirubin Urine Urobilinogen Add Ur Microanalysis Leukocyte Esterase Rfl Urine RBC Urine WBC Ur Squamous Epith Cells Urine Bacteria Urine Casts SARS-CoV-2 RNA (RT-PCR) Negative 12/22/23 18:14 WBC RBC Hgb Hct MCV MCH MCHC RDW Plt Count MPV Immature Gran % (Auto) Neut % (Auto) Lymph % (Auto) [place] % (Auto) Eos % (Auto) Baso % (Auto) Lymph # (Auto) [place] # (Auto) Eos # (Auto) Baso # (Auto) Abs Immat Gran (auto) Absolute Neuts (auto) Absolute Nucleated RBC Nucleated RBC % Sodium Potassium Chloride Carbon Dioxide Anion Gap BUN Creatinine Estim Creat
== END 2023-12-23 13:15 ==
LOC: ANHED 12-22 01:13 → ANH3MEDSUR 12-22 02:35
PROVIDERS: Surgery; Admitting Provider Internal Medicine; Emergency Provider Physician Assistant; PCP Internal Medicine; Visit Provider General Practice
PROC: 0DTJ4ZZ Resection of Appendix, Percutaneous Endoscopic Approach (ICD-10-PCS; CPT 44970; principal; 2023-12-22 08:00)
DX: K35.80 Unspecified acute appendicitis (principal); D50.9 Iron deficiency anemia, unspecified; I12.9 Hypertensive chronic kidney disease with stage 1 through stage 4 chronic kidney disease, or unspecified chronic kidney disease; N18.9 Chronic kidney disease, unspecified; E78.5 Hyperlipidemia, unspecified; F03.90 Unspecified dementia, unspecified severity, without behavioral disturbance, psychotic disturbance, mood disturbance, and anxiety; E66.01 Morbid (severe) obesity due to excess calories; Z68.41 Body mass index [BMI] 40.0-44.9, adult; Z11.52 Encounter for screening for COVID-19
CPT/HCPCS: 44970; 36415; 74176; 80048; 80053; 81001; 83690; 83735; 84145; 85025; 85027; 85610; 87040; 87077; 87086; 87181; 87635; 88304; 93005; 94667; 96365; 96375; 96376; 99285; A9270; G0378; J0330; J1100; J1650; J2270; J2405; J2543; J2704; J3010; J7120

== ENCOUNTER 2024-11-17 13:49 | Inpatient (IN) | payer MEDICARE, MEDICAID, SELFPAY ==
[2024-11-17] VITALS (17 sets, daily range): BP systolic 110–151; BP diastolic 50–112; PULSE 61–73; RESP 16–24; TEMP 36.6–36.7; O2SAT 96–100; BMI 38.3
--- NOTE | 2024-11-17 14:13 | ECG_ITS ---
Test Date: 2024-11-17 14:20:15 Measurements Intervals [place] Rate: 59 P: 79 CO: 184 QRS: 2 QRSD: 101 T: 40 QT: 439 QTc: 437 Interpretive Statements SINUS BRADYCARDIA LEFT VENTRICULAR HYPERTROPHY WITH ST-T CHANGE CONSIDER INFERIOR INFARCT, AGE INDETERMINATE BORDERLINE ST-T WAVE ABNORMALITY- ANTEROLATERAL LEADS ABNORMAL ECG Compared to ECG 12/22/2023 08:05:33 No significant changes Electronically Signed On 11-17-2024 14:41:30 CDT by Shun Matthews D.O.
--- NOTE | 2024-11-17 14:16 | ED.SYNCOPE ---
HPI - Syncope General Chief Complaint: Altered Mental Status Stated Complaint: ams Time Seen by Provider: 11/17/24 14:12 History of Present Illness HPI narrative: Pt was having diarrhea and abdominal cramps and had unresponsive spell (syncope). On EMS arrival BP low but pt starting to wake up. On arrival in ER pt alert and oriented x 3. Pt says she has no abdominal pain now and feels better. Pt had no CP prior to or after event. Related Data Home Medications ?Medication ?Instructions ?Recorded ?Confirmed ?Last Taken ?Type Allergy Relief (cetirizine) 10 mg PO HS 12/22/23 01/10/24 Unknown History B12 Active 1,000 mcg PO DAILY 12/22/23 01/10/24 Unknown History Lasix 40 mg PO EVERY OTHER DAY 12/22/23 01/10/24 Unknown History Mylanta Gas Maximum Strength 30 ml PO Q4-8H PRN Abdominal 12/22/23 01/10/24 Unknown History Discomfort acetaminophen 325 mg capsule 650 mg PO Q6-8H PRN pain 12/22/23 01/10/24 Unknown History atenolol 50 mg tablet 50 mg PO BID hypertension 12/22/23 01/10/24 Unknown History atorvastatin 40 mg tablet 40 mg PO HS 12/22/23 01/10/24 Unknown History cholecalciferol (vitamin D3) 125 mcg PO DAILY 12/22/23 01/10/24 Unknown History citalopram 20 mg PO DAILY 12/22/23 01/10/24 Unknown History dicyclomine 20 mg PO TID 12/22/23 01/10/24 Unknown History donepezil 10 mg PO HS 12/22/23 01/10/24 Unknown History hydralazine 25 mg PO TID 12/22/23 01/10/24 Unknown History hydroxyzine HCl 25 mg PO DAILY 12/22/23 01/10/24 Unknown History loperamide 2 mg PO DAILY PRN ibs 12/22/23 01/10/24 Unknown History magnesium citrate 296 ml PO DAILY PRN Constipation 12/22/23 01/10/24 Unknown History metoclopramide HCl 10 mg PO BID 12/22/23 01/10/24 Unknown History mirtazapine 15 mg PO DAILY 12/22/23 01/10/24 Unknown History omeprazole 40 mg PO DAILY 12/22/23 01/10/24 Unknown History ondansetron 4 mg PO Q8-10H 12/22/23 01/10/24 Unknown History oxybutynin chloride 5 mg PO BID 12/22/23 01/10/24 Unknown History sucralfate 1 g PO QID 12/22/23 01/10/24 Unknown History tramadol 50 mg PO Q8-12H PRN pain 12/22/23 01/10/24 Unknown History Allergies Allergy/AdvReac Type Severity Reaction Status Date / Time iodine Allergy Severe HIVES-SWELL Verified 01/08/24 08:31 ING Review of Systems Review of Systems: All systems reviewed & are unremarkable except as noted in HPI and below PMFSH Past Medical History Medical History History of dementia History of hyperlipidemia History of hypertension Surgical History Surgical History History of laparoscopic appendectomy 12/22/23 Social History Social History Smoking status: Smoker, status unknown Alcohol intake: never Substance use: never Do You Feel Safe in your Home?: Yes Lack of Transportation: No Lack of Food: Never True Current Housing: I Have Housing Concerned About Future Housing: No Difficulty Paying Gas/Electric Bills: No Difficulty Paying for Meds: No Currently Unemployed: No Education: Don't Know Difficulty w/ Childcare or Family Care: No Spiritual care concerns: No Exam Const: General: healthy appearing and no acute distress Nutritional Appearance: well nourished and obese Orientation/consciousness: patient oriented x3 Limitations: no limitations HENMT: Head: normal to inspection Throat: posterior oropharynx normal Eyes: EOM: EOMs intact bilaterally Neck: Neck: normal visual inspection Chest: Chest palpation & inspection: normal inspection of the chest Resp: Effort & Inspection: normal respiratory effort Auscultation: clear to auscultation bilaterally Cardio: Rate: regular rate Rhythm: regular rhythm GI: GI Palp: Yes Soft to palpation and No Tenderness to palpation present (GI) Auscultation: normal bowel sounds Back/Spine/Pelvis: Back: no CVA tenderness Skin: General skin exam: normal color Rashes: no rashes Neuro: General: patient oriented x3, moves all extremities, no meningeal signs and no focal motor deficits Cranial nerves: Yes Nystagmus not present Speech: normal speech Extrem: General: normal to inspection and no clubbing, cyanosis or edema Psych: Mental Status: mental status grossly normal Affect: normal affect Attitude: cooperative Course Vital Signs Vital signs: Vital Signs Temperature 97.8 F 11/17/24 13:51 Pulse Rate 66 11/17/24 13:51 Respiratory Rate 21 H 11/17/24 13:51 Blood Pressure 110/50 L 11/17/24 13:51 Pulse Oximetry 97 11/17/24 13:51 Oxygen Delivery Room Air 11/17/24 13:51 Temperature 98.0 F 11/17/24 18:24 Pulse Rate 68 11/17/24 18:24 Respiratory Rate 16 11/17/24 18:24 Blood Pressure 133/72 11/17/24 18:24 Pulse Oximetry 99 11/17/24 18:24 Oxygen Delivery Room Air 11/17/24 18:43 MDM - Syncope MDM Narrative Medical decision making narrative: Pt presents after having what sounds like a syncopal episode when she was having loose stools and cramps. Pt feels better now and has no abd pain. will check some labs to rule out anemia and lelectorlyte issues and ekg for cardiac causes and give some IV fluids. potassium 2.8 will correct. pt has uti as well. discussed with Sveta Ugalde and said could observe overnight or send back after we correct k. discussed with pt and family and would prefer to stay here rather than go back to [facility]. Lab Data 11/17/24 14:18 11/17/24 14:18 Labs: Lab Results 11/17/24 11/17/24 Range/Units 14:18 15:30 WBC 9.4 (4.5-10.0) K/mm3 RBC 4.36 (4.2-5.4) M/mm3 Hgb 8.2 L (12.0-15.0) g/dL Hct 28.4 L (37.0-47.0) % MCV 65.1 L (80-100) fl MCH 18.8 L (26-34) pg MCHC 28.9 L (32-36) g/dl RDW 16.8 H (11.5-14.5) % Plt Count 364 (150-375) k/mm3 MPV 11.0 H (7.4-10.4) fl Immature Gran % (Auto) 0.4 (0-0.5) % Neut % (Auto) 55.6 (45.5-73.1) % Lymph % (Auto) 32.4 (18.3-44.2) % [place] % (Auto) 9.5 H (2.6-8.5) % Eos % (Auto) 1.7 (0-4.4) % Baso % (Auto) 0.4 (0.2-1.2) % Lymph # (Auto) 3.05 (0.9-3.2) K/mm3 [place] # (Auto) 0.9 H (0.1-0.6) K/mm3 Eos # (Auto) 0.2 (0-0.3) K/mm3 Baso # (Auto) 0.0 (0.0-0.1) K/mm3 Abs Immat Gran (auto) 0.04 H (0.00-0.031) K/mm3 Absolute Neuts (auto) 5.2 (1.3-6.7) K/mm3 Absolute Nucleated RBC 0.000 (0.0-0.012) K/mm3 Band Neutrophils % 0 (0-6) % Nucleated RBC % 0.0 (0.0-0.2) % Platelet Estimate Adequate (Adequate) Hypochromasia 1+ Anisocytosis 2+ Microcytosis 1+ (NORMAL) Schistocytes None seen PT 14.1 (11.1-14.7) Seconds INR 1.1 APTT 30.7 (22.3-36.8) Seconds Sodium 130 L (137-145) mmol/L Potassium 2.8 L* (3.4-5.0) mmol/L Chloride 90 L (98-107) mmol/L Carbon Dioxide 30 (22-30) mmol/L Anion Gap 10 (4-12) mmol/L BUN 11 D (7-17) mg/dL Creatinine 1.20 H (0.7-1.0) mg/dL Estim Creat Clear Calc Not Reportable Estimated GFR 43 L (59 - ) Glucose 130 H (65-110) mg/dL Calcium 8.5 (8.4-10.2) mg/dL Total Bilirubin 0.3 (0.2-1.3) mg/dL AST 31 (14-36) U/L ALT 15 (6-35) U/L Alkaline Phosphatase 75 (38-126) U/L Troponin I 0.017 (0.000-0.034) ng/mL Total Protein 6.2 L (6.3-8.2) g/dL Albumin 3.4 L (3.5-5.1) g/dL Urine Color Yellow (Yellow) Urine Appearance Cloudy H (Clear) Urine pH 6.0 (5.0-9.0) Ur Specific [place] 1.007 (1.001-1.035) Urine Protein Trace (Negative) mg/dL Urine Glucose (UA) Negative (Negative) mg/dL Urine Ketones Negative (Negative) mg/dL Ur Blood (Man) Negative (Negative) Urine Nitrate Positive H (Negative) Urine Bilirubin Negative (Negative) Urine Urobilinogen 0.2 (<2.0) mg/dL Add Ur Microanalysis Reviewed Leukocyte Esterase Rfl 3+ H (Negative) VAL/UL Urine RBC 21-50 H (0-2) /hpf Urine WBC 51-100 H (0-3) /hpf Ur Squamous Epith Cells None seen (Few) /hpf Urine Bacteria 4+ H /hpf Urine Casts 3-5 Discharge Plan Discharge Clinical Impression: Syncope, Acute hypokalemia, Acute UTI Patient Disposition: Still a Patient Condition: Improved
[2024-11-17 14:27] LABS: Basophils Percent Auto 0.4 % (0.2-1.2); Eosinophils Absolute Auto 0.2 K/mm3 (0-0.3); Eosinophils Percent Auto 1.7 % (0-4.4); Hematocrit 28.4 % (37.0-47.0); Hemoglobin 8.2 g/dL (12.0-15.0); Immature Granulocyte Absolute 0.04 K/mm3 (0.00-0.031); Immature Granulocyte Percent A 0.4 % (0-0.5); Lymphocytes Absolute Auto 3.05 K/mm3 (0.9-3.2); Lymphocytes Percent Auto 32.4 % (18.3-44.2); Mean Corpuscular HGB Conc 28.9 g/dl (32-36); Mean Corpuscular Hemoglobin 18.8 pg (26-34); Mean Corpuscular Volume 65.1 fl (80-100); Monocytes Absolute Auto 0.9 K/mm3 (0.1-0.6); Monocytes Percent Auto 9.5 % (2.6-8.5); Neutrophils Absolute Auto 5.2 K/mm3 (1.3-6.7); Neutrophils Percent Auto 55.6 % (45.5-73.1); Platelet Count Result 364 k/mm3 (150-375); Red Blood Count 4.36 M/mm3 (4.2-5.4); Red Cell Distribution Width 16.8 % (11.5-14.5); White Blood Count 9.4 K/mm3 (4.5-10.0)
[2024-11-17 14:41] LABS: INR 1.1; Prothrombin Time 14.1 Seconds (11.1-14.7)
[2024-11-17 14:42] LABS: Partial Thromboplastin Time 30.7 Seconds (22.3-36.8)
[2024-11-17 14:43] LABS: Alanine Aminotransferase 15 U/L (6-35); Albumin Level 3.4 g/dL (3.5-5.1); Alkaline Phosphatase 75 U/L (38-126); Anion Gap 10 mmol/L (4-12); Aspartate Amino Transferase 31 U/L (14-36); Bilirubin,Total 0.3 mg/dL (0.2-1.3); Blood Urea Nitrogen 11 mg/dL (7-17); Calcium 8.5 mg/dL (8.4-10.2); Carbon Dioxide 30 mmol/L (22-30); Chloride 90 mmol/L (98-107); Estimated Glomerular Filt Rate 43; Glucose 130 mg/dL (65-110); Potassium 2.8 mmol/L (3.4-5.0); Sodium 130 mmol/L (137-145); Total Protein 6.2 g/dL (6.3-8.2)
[2024-11-17] MEDS: SODIUM CHLORIDE 0.9% IV 1,000 ML 999 ML IV CONT (14:44)
[2024-11-17 14:50] LABS: Anisocytosis 2+; Hypochromasia 1+; Microcytosis 1+ (NORMAL); Platelet Estimate Adequate (Adequate); Schistocytes None Seen
[2024-11-17 14:51] LABS: Band Neutrophils Percent 0 % (0-6)
[2024-11-17 14:56] LABS: Troponin I 0.017 ng/mL (0.000-0.034)
[2024-11-17 15:50] LABS: Add Urine Microscopic? YES; Appearance Urine Cloudy (Clear); Bacteria Urine 4+ /hpf; Bilirubin Urine Negative (Negative); Blood Urine Negative (Negative); Color Urine Yellow (Yellow); Glucose Urine UA Negative (Negative); Ketones Urine Negative (Negative); Leukocyte Esterase Ur 3+ LEU/UL (Negative); Need Manual Microscopic Reviewed; Nitrate Urine Positive (Negative); Protein Urine Trace mg/dL (Negative); RBC Urine 21-50 /hpf (0-2); Specific Grav Ur 1.007 (1.001-1.035); Squamous Epithelial Cell Urine None Seen /hpf (Few); Urobilinogen Urine 0.2 mg/dL (<2.0); WBC Urine 51-100 /hpf (0-3)
[2024-11-17] MEDS: KCL 20 MEQ/SW 100 ML 100 ML 50 MEQ IVPB (15:57)
[2024-11-17] MEDS: POTASSIUM CHLORIDE 20 MEQ ER TABLET 40 MEQ PO (16:06)
[2024-11-17] MEDS: cefTRIAXone 2 GM/NS 100 ML 2 GM/100 ML BAG IVPB (16:49)
[2024-11-17] MEDS: ACETAMINOPHEN 325 MG TABLET 650 MG PO (16:51)
--- NOTE | 2024-11-17 18:34 | ADMGEN ---
This patient, Susana Napoles, was admitted to 2 Medical Room 243-01. Patient/family oriented to hospital policies and general routines including ID bracelet, bed and alarms, visiting hours, pain management, procedures, bathroom and other care routines, personal items, smoking policy, room service/diet, and visiting hours. Information on how to activate the Rapid Response Team has been discussed. Patient/Family are encouraged to report perceived risks to care and to ask questions if they do not understand what they are told or what they should do.
[2024-11-18] VITALS (12 sets, daily range): BP systolic 120–154; BP diastolic 47–128; PULSE 56–78; RESP 14–22; TEMP 36.2–36.9; O2SAT 90–100
--- NOTE | 2024-11-18 04:14 | PM.IMHP ---
H&P: HPI History of Present Illness Date/Time: 11/18/24 04:14 Chief Complaint: Unresponsive episode Narrative: 84-year-old female with a past medical history of dementia, essential hypertension, GERD, chronic kidney disease stage 3, CHF, microcytic anemia and irritable bowel syndrome who presented to the ER from [facility] due to unresponsive episode. Patient had been up to the commode and had diarrheal bowel movement. Staff was cleaning the patient up when she then vomited. She sat down in her wheelchair and briefly went unresponsive. When EMS arrived to the facility the patient was lying in the bed pale and diaphoretic. She was hypotensive with manual blood pressure of 90/60. Her glucose for EMS was 149. By the time she arrived to the ER she was more alert and blood pressures were normal. She was complaining of abdominal cramping. She just reported that she just felt weak. At the time of my evaluation the patient is alert oriented to self into the fact that she is in the hospital. She does not remember exactly why she was brought to the hospital. Nursing staff reports that the patient has not urinated since admission. She does report that she has a little bit nauseous. She has not had any vomiting since she arrived to the hospital. She denies any chest pain, shortness breath or palpitations. She is being monitored on telemetry and has had no dysrhythmias since admission. In the ER the patient's creatinine was elevated slightly above her baseline. Her potassium was low at 2.8. Patient received oral and IV potassium supplements. Information was obtained from review of past medical records and ER physician report. Patient was unable to provide any meaningful input to history process due to dementia. Review of Systems Review of Systems: Review of systems unreliable is patient is alert oriented only x2 and has history of dementia. [facility] Past Medical History Medical History (Updated 11/18/24 @ 06:59 by Kamilah Mcmanus DO) H pylori ulcer Myocardial infarction (2008) B12 deficiency Allergic rhinitis Hypochromic microcytic anemia CKD (chronic kidney disease) stage 3, GFR 30-59 ml/min History of dementia History of hypertension History of hyperlipidemia Surgical History Surgical History (Updated 11/18/24 @ 06:45 by Kamilah Mcmanus DO) History of total abdominal hysterectomy and bilateral salpingo-oophorectomy Due to uterine cancer when she was in her 30s Hx of cholecystectomy History of heart artery stent (~2012) X3 [address] Hussein Jamal heart and vascular History of tonsillectomy and adenoidectomy Status post cataract extraction of both eyes with insertion of intraocular lens History of laparoscopic appendectomy 12/22/23 Family History Family History (Updated 11/18/24 @ 06:46 by Kamilah Mcmanus DO) Other Heart disease Social History Social History (Updated 11/18/24 @ 06:49 by Kamilah Mcmanus DO) Social History: Patient is . She raised 3 children. Code status: Full code (per POLST form from the skilled nursing) Surrogate decision maker: Ravi () Smoking status: Never smoker Alcohol intake: never Substance use: never Do You Feel Safe in your Home?: Yes Lack of Transportation: No Lack of Food: Never True Current Housing: I Have Housing Concerned About Future Housing: No Difficulty Paying Gas/Electric Bills: No Difficulty Paying for Meds: No Currently Unemployed: No Education: Don't Know Difficulty w/ Childcare or Family Care: No Living arrangements: skilled nursing Additional living arrangements comments: [facility] Spiritual care concerns: No Meds Home Medications and Allergies Home Medications ?Medication ?Instructions ?Recorded ?Confirmed ?Type B12 Active 1,000 mcg PO DAILY 12/22/23 11/17/24 History Lasix 40 mg PO EVERY OTHER DAY 12/22/23 11/17/24 History Mylanta Gas Maximum Strength 30 ml PO Q4-8H PRN Abdominal 12/22/23 11/18/24 History Discomfort acetaminophen 325 mg capsule 650 mg PO Q6-8H PRN pain 12/22/23 11/17/24 History atenolol 50 mg tablet 50 mg PO BID hypertension 12/22/23 11/17/24 History atorvastatin 40 mg tablet 40 mg PO HS 12/22/23 11/17/24 History cholecalciferol (vitamin D3) 125 mcg PO DAILY 12/22/23 11/17/24 History dicyclomine 20 mg PO TID 12/22/23 11/17/24 History hydralazine 25 mg PO TID 12/22/23 11/17/24 History hydrocodone 5 mg-acetaminophen 325 1 tablet PO Q6H PRN pain #10 tabs 12/22/23 11/17/24 Rx mg tablet hydroxyzine HCl 25 mg PO DAILY 12/22/23 11/17/24 History loperamide 2 mg PO DAILY PRN ibs 12/22/23 11/18/24 History magnesium citrate 296 ml PO DAILY PRN Constipation 12/22/23 11/17/24 History mirtazapine 7.5 mg PO DAILY 12/22/23 11/17/24 History omeprazole 40 mg PO DAILY 12/22/23 11/17/24 History ondansetron 4 mg PO Q6H PRN nausea and vomiting 12/22/23 11/17/24 History oxybutynin chloride 5 mg PO BID 12/22/23 11/17/24 History sucralfate 1 g PO QID 12/22/23 11/17/24 History tramadol 50 mg PO Q12H PRN pain 12/22/23 11/18/24 History bisacodyl 10 mg rectal suppository 10 mg RECTAL DAILY PRN constipation 11/17/24 11/17/24 History cetirizine 10 mg tablet (24Hour 10 mg PO HS 11/17/24 11/17/24 History Allergy) clobetasol 0.05 % topical ointment 1 applic topical DAILY 11/17/24 11/17/24 History Allergies Allergy/AdvReac Type Severity Reaction Status Date / Time iodine Allergy Severe HIVES-SWELL Verified 01/08/24 08:31 ING Vital Signs Vital Signs - 24 hr 11/17/24 13:51 11/17/24 15:00 11/17/24 15:10 Temperature 97.8 F Pulse Rate 66 61 Respiratory Rate 21 H 16 Blood Pressure 110/50 L Pulse Oximetry 97 98 Oxygen Delivery Room Air Room Air 11/17/24 15:16 11/17/24 15:36 11/17/24 15:45 Temperature Pulse Rate 63 67 65 Respiratory Rate 16 24 H 20 Blood Pressure Pulse Oximetry 97 97 99 Oxygen Delivery 11/17/24 16:04 11/17/24 16:13 11/17/24 16:15 Temperature Pulse Rate 67 65 66 Respiratory Rate 20 16 22 H Blood Pressure 131/70 Pulse Oximetry 98 99 96 Oxygen Delivery 11/17/24 16:16 11/17/24 16:30 11/17/24 16:31 Temperature Pulse Rate 73 65 64 Respiratory Rate 20 16 17 Blood Pressure 129/65 135/68 Pulse Oximetry 98 99 98 Oxygen Delivery 11/17/24 16:45 11/17/24 17:21 11/17/24 17:30 Temperature Pulse Rate 62 72 72 Respiratory Rate 18 20 20 Blood Pressure Pulse Oximetry 100 Oxygen Delivery 11/17/24 18:24 11/17/24 18:43 11/17/24 20:00 Temperature 98.0 F Pulse Rate 68 Respiratory Rate 16 Blood Pressure 133/72 Pulse Oximetry 99 Oxygen Delivery Room Air Room Air 11/17/24 20:00 11/17/24 20:06 11/18/24 00:00 Temperature 98 F Pulse Rate 65 61 57 L Respiratory Rate 16 Blood Pressure 151/112 H Pulse Oximetry 99 Oxygen Delivery Exam Narrative: Weight 92.1 kg BMI 38.4 Const: Other: No acute distress, morbidly obese, appears stated age HENMT: Other: Mucous membranes are moist, no oral pharyngeal erythema, fair dentition, crowded posterior oropharynx, head is normocephalic atraumatic Neck: Other: No JVD, no lymphadenopathy, large neck circumference Resp: Other: Clear to auscultation bilaterally, no increased work of breathing Cardio: Other: Regular rate, regular rhythm, 2+ bilateral radial pedal pulses, no murmur GI: Other: Soft, nontender, nondistended, obese, positive bowel sounds Skin: Other: Generalized pallor, non jaundice Neuro: Other: Alert oriented to self, she is aware that she is in a hospital but cannot name the hospital, she is conversational in her speech is fluent but she is confused, otherwise she has no localizing neurologic deficits noted during the course of conversation Extrem: Other: No clubbing, cyanosis or edema, 4/5 computer instructor strength bilaterally Psych: Other: Pleasantly confused, cooperative, poor judgment and insight H&P: Results Labs Labs: Laboratory Tests 11/17/24 14:18 11/17/24 14:18 11/17/24 11/17/24 14:18 15:30 WBC 9.4 RBC 4.36 Hgb 8.2 L Hct 28.4 L MCV 65.1 L MCH 18.8 L MCHC 28.9 L RDW 16.8 H Plt Count 364 MPV 11.0 H Immature Gran % (Auto) 0.4 Neut % (Auto) 55.6 Lymph % (Auto) 32.4 [place] % (Auto) 9.5 H Eos % (Auto) 1.7 Baso % (Auto) 0.4 Lymph # (Auto) 3.05 [place] # (Auto) 0.9 H Eos # (Auto) 0.2 Baso # (Auto) 0.0 Abs Immat Gran (auto) 0.04 H Absolute Neuts (auto) 5.2 Absolute Nucleated RBC 0.000 Band Neutrophils % 0 Nucleated RBC % 0.0 Platelet Estimate Adequate Hypochromasia 1+ Anisocytosis 2+ Microcytosis 1+ Schistocytes None seen PT 14.1 INR 1.1 APTT 30.7 Sodium 130 L Potassium 2.8 L* Chloride 90 L Carbon Dioxide 30 Anion Gap 10 BUN 11 D Creatinine 1.20 H Estim Creat Clear Calc Not Reportable Estimated GFR 43 L Glucose 130 H Calcium 8.5 Total Bilirubin 0.3 AST 31 ALT 15 Alkaline Phosphatase 75 Troponin I 0.017 Total Protein 6.2 L Albumin 3.4 L Urine Color Yellow Urine Appearance Cloudy H Urine pH 6.0 Ur Specific [place] 1.007 Urine Protein Trace Urine Glucose (UA) Negative Urine Ketones Negative Ur Blood (Man) Negative Urine Nitrate Positive H Urine Bilirubin Negative Urine Urobilinogen 0.2 Add Ur Microanalysis Reviewed Leukocyte Esterase Rfl 3+ H Urine RBC 21-50 H Urine WBC 51-100 H Ur Squamous Epith Cells None seen Urine Bacteria 4+ H Urine Casts 3-5 EKG:Test Date: 2024-11-17 14:20:15 Measurements Intervals [place] Rate: 59 P: 79 MN: 184 QRS: 2 QRSD: 101 T: 40 QT: 439 QTc: 437 Interpretive Statements SINUS BRADYCARDIA LEFT VENTRICULAR HYPERTROPHY WITH ST-T CHANGE CONSIDER INFERIOR INFARCT, AGE INDETERMINATE BORDERLINE ST-T WAVE ABNORMALITY- ANTEROLATERAL LEADS ABNORMAL ECG Compared to ECG 12/22/2023 08:05:33 No significant changes All imaging and EKGs personally reviewed and interpreted. And unless stated otherwise agree with radiologic and cardiology interpretation. Assessment and Plan Assessment and plan (1) Vasovagal syncope: Code(s): R55 - Syncope and collapse Status: Acute (2) Acute hypokalemia: Code(s): E87.6 - Hypokalemia Status: Acute (3) Dehydration: Code(s): E86.0 - Dehydration Status: Acute (4) Acute UTI: Code(s): N39.0 - Urinary tract infection, site not specified Status: Acute (5) CKD (chronic kidney disease) stage 3, GFR 30-59 ml/min: Qualifiers: Chronic kidney disease stage 3 subtype: stage 3a (GFR 45-59) Qualified Code(s): N18.31 - Chronic kidney disease, stage 3a Code(s): N18.30 - Chronic kidney disease, stage 3 unspecified Status: Acute (6) Hypochromic microcytic anemia: Code(s): D50.9 - Iron deficiency anemia, unspecified Status: Acute (7) Dementia: Qualifiers: Dementia type: unspecified type Dementia severity: severe Dementia behavioral or psychological symptom: without behavioral, psychotic, or mood disturbance or anxiety Qualified Code(s): F03.C0 - Unspecified dementia, severe, without behavioral disturbance, psychotic disturbance, mood disturbance, and anxiety Code(s): F03.90 - Unspecified dementia, unspecified severity, without behavioral disturbance, psychotic disturbance, mood disturbance, and anxiety Status: Acute Plan The patient had vasovagal syncope with some loose stools. She had normal blood pressures when she arrived to the ER and received 1 L of IV fluids. Her electrolyte panel demonstrated hypokalemia. She received both IV and p.o. potassium supplements. Repeat potassium level this morning was still low in patient has received an additional 40 mEq potassium chloride. Given the recurrent hypokalemia magnesium level was also checked which was lower limit of normal. 2 g magnesium sulfate rider has been administered. Patient has not had any recurrence of loose stools. She has not had any urine output since arrival to the medical floor. Will given additional 1 L fluid. Likely patient's creatinine is stable and at baseline. Will hold home Lasix. The patient had acute on chronic hyponatremia but hyponatremia is resolved with initial L fluid bolus. Patient does have chronic microcytic hypochromic anemia. Hemoglobin is stable. But does not appear the patient has had previous iron studies. Will check ferritin and TIBC panel. I suspect patient has more anemia of chronic disease but if ferritin is low then maybe we could place patient on some iron supplements. Patient has been admitted as observation status. MEDICAL DECISION MAKING NARRATIVE -Spoke with the ED provider in detail regarding patient's evaluation, workup and management -Patient seen and examined at bedside -Collaborated with patient's nurse at the bedside in detail and addressed all concerns -Labs, electrolytes, radiology, investigations and test results reviewed -ED/Consult/Nursing/Ancilliary notes on the chart reviewed and appreciated Quality VTE Prophylaxis VTE prophylaxis: mechanical ordered (SCDs) Hospitalist MIPS Advance Care Plan I have confirmed that the patient's Advanced Care Plan is present, code status is documented, or surrogate decision maker is listed in patient medical record.: Yes Medication Reconciliation I have utilized all available resources to obtain, update and review the patients current medications (includes all prescriptions, OTC, herbals, cannabis, and nutritional supplements).: Yes
[2024-11-18 05:33] LABS: Hematocrit 27.8 % (37.0-47.0); Hemoglobin 8.1 g/dL (12.0-15.0); Mean Corpuscular HGB Conc 29.1 g/dl (32-36); Mean Corpuscular Hemoglobin 19.1 pg (26-34); Mean Corpuscular Volume 65.6 fl (80-100); Mean Platelet Volume 11.4 fl (7.4-10.4); Platelet Count Result 319 k/mm3 (150-375); Red Blood Count 4.24 M/mm3 (4.2-5.4); Red Cell Distribution Width 16.7 % (11.5-14.5); White Blood Count 8.2 K/mm3 (4.5-10.0)
[2024-11-18 05:52] LABS: Magnesium 1.7 mg/dL (1.6-2.3)
[2024-11-18 05:55] LABS: Anion Gap 5 mmol/L (4-12); Blood Urea Nitrogen 10 mg/dL (7-17); Calcium 8.7 mg/dL (8.4-10.2); Carbon Dioxide 34 mmol/L (22-30); Chloride 96 mmol/L (98-107); Estimated CRCL calculation 35 ml/min; Estimated Glomerular Filt Rate 48; Glucose 83 mg/dL (65-110); Potassium 3.2 mmol/L (3.4-5.0); Sodium 135 mmol/L (137-145)
[2024-11-18] MEDS: POTASSIUM CHLORIDE 20 MEQ ER TABLET 40 MEQ PO (06:21)
[2024-11-18] MEDS: MAGNESIUM SULF 2 GM/WATER 50ML 2 GM/50 ML BAG IVPB (06:22)
[2024-11-18] MEDS: SUCRALFATE 1 GM TABLET PO ×4 (08:07→20:55)
[2024-11-18] MEDS: SODIUM CHLORIDE 0.9% IV 1,000 ML 200 ML IV CONT (08:07)
[2024-11-18] MEDS: PANTOPRAZOLE 40 MG TABLET PO ×2 (08:08→16:53)
[2024-11-18] MEDS: hydrALAZINE HCL 25 MG TABLET PO ×2 (08:08→16:52)
[2024-11-18] MEDS: DICYCLOMINE HCL 10 MG CAPSULE 20 MG PO ×3 (08:08→16:52)
[2024-11-18] MEDS: CYANOCOBALAMIN 1,000 MCG TABLET 1000 MCG PO (08:08)
[2024-11-18] MEDS: MIRTAZAPINE 7.5 MG TABLET PO (08:08)
[2024-11-18] MEDS: hydrOXYzine HCL 25 MG TABLET PO (08:08)
[2024-11-18] MEDS: oxyBUTYnin CHLORIDE 5 MG TABLET PO ×2 (08:08→16:53)
[2024-11-18] MEDS: CHOLECALCIFEROL (VITAMIN D3) 125 MCG (5,000 UNITS) TABLET BY MOUTH (08:08)
[2024-11-18 08:20] LABS: Iron 16 ug/dL (37-170)
[2024-11-18 08:31] LABS: Percent Iron Saturation 5 % (20-50)
--- NOTE | 2024-11-18 08:47 | P.PNIM_ITS ---
Progress Note: A&P Assessment and Plan (1) Vasovagal syncope: Code(s): R55 - Syncope and collapse Status: Acute (2) Acute hypokalemia: Code(s): E87.6 - Hypokalemia Status: Acute (3) Dehydration: Code(s): E86.0 - Dehydration Status: Acute (4) Acute UTI: Code(s): N39.0 - Urinary tract infection, site not specified Status: Acute (5) CKD (chronic kidney disease) stage 3, GFR 30-59 ml/min: Qualifiers: Chronic kidney disease stage 3 subtype: stage 3a (GFR 45-59) Qualified Code(s): N18.31 - Chronic kidney disease, stage 3a Code(s): N18.30 - Chronic kidney disease, stage 3 unspecified Status: Acute (6) Hypochromic microcytic anemia: Code(s): D50.9 - Iron deficiency anemia, unspecified Status: Acute (7) Dementia: Qualifiers: Dementia behavioral or psychological symptom: without behavioral, psychotic, or mood disturbance or anxiety Dementia severity: severe Dementia type: unspecified type Qualified Code(s): F03.C0 - Unspecified dementia, severe, without behavioral disturbance, psychotic disturbance, mood disturbance, and anxiety Code(s): F03.90 - Unspecified dementia, unspecified severity, without behavioral dis turbance, psychotic disturbance, mood disturbance, and anxiety Status: Acute Plan The patient had vasovagal syncope with some loose stools. She had normal blood pressures when she arrived to the ER and received 1 L of IV fluids. - hypokalemia k replaced- trend labs - will need to have K replacement to be taken wit her lasix every couple of days to avoid hypokalemia - 2 g magnesium sulfate rider has been administered. Patient has not had any recurrence of loose stools. She has not had any urine output since arrival to the medical floor. - hold home Lasix - acute on chronic hyponatremia but hyponatremia is resolved with initial L fluid bolus. Patient does have chronic microcytic hypochromic anemia. Hemog lobin is stable. - iron panel was checked nd low- will add iron supplements - noted that pt is on 50 mg bid of atenolol - am dose was held as HR was below 60, still occasional low BP - will decrease dose to 25 mg bid-hold if hr below 60. monitor BP closely Time Spent With Patient Time with patient: 25 - 35 minutes Subjective Date/time seen: 11/18/24 08:47 Interval history: 84-year-old female with a past medical history of dementia, essential hypertension, GERD, chronic kidney disease stage 3, CHF, microcytic anemia and irritable bowel syndrome who presented to the ER from [facility] due to unresponsive episode. She was hypotensive with manual blood pressure of 90/60. Her glucose for EMS was 149. Pt is seen and examined. She is pleasant, in bed, at the bedside. She denies any chest pain, sob, n/v/d. Review of Systems Review of Systems: Review of systems unreliable is patient is alert oriented only x2 and has history of dementia. Exam Narrative: Weight 92.1 kg BMI 38.4 Const: Other: No acute distress, morbidly obese, appears stated age HENMT: Other: Mucous membranes are moist, no oral pharyngeal erythema, fair dentition, crowded posterior oropharynx, head is normocephalic atraumatic Neck: Other: No JVD, no lymphadenopathy, large neck circumference Resp: Other: Clear to auscultation bilaterally, no increased work of breathing Cardio: Other: Regular rate, regular rhythm, 2+ bilateral radial pedal pulses, no murmur GI: Other: Soft, nontender, nondistended, obese, positive bowel sounds Skin: Other: Generalized pallor, non jaundice Neuro: Other: Alert oriented to self, she is aware that she is in a hospital but cannot name the hospital, she is conversational in her speech is fluent but she is confused, otherwise she has no localizing neurologic deficits noted during the course of conversation Extrem: Other: No clubbing, cyanosis or edema, 4/5 packaging associate strength bilaterally Psych: Other: Pleasantly confused, cooperative, poor judgment and insight Objective Data Vital Signs Vital Signs: Vital Signs - 24 hr 11/17/24 13:51 11/17/24 15:00 11/17/24 15:10 Temperature 97.8 F Pulse Rate 66 61 Respiratory Rate 21 H 16 Blood Pressure 110/50 L Pulse Oximetry 97 98 Oxygen Delivery Room Air Room Air 11/17/24 15:16 11/17/24 15:36 11/17/24 15:45 Temperature Pulse Rate 63 67 65 Respiratory Rate 16 24 H 20 Blood Pressure Pulse Oximetry 97 97 99 Oxygen Delivery 11/17/24 16:04 11/17/24 16:13 11/17/24 16:15 Temperature Pulse Rate 67 65 66 Respiratory Rate 20 16 22 H Blood Pressure 131/70 Pulse Oximetry 98 99 96 Oxygen Delivery 11/17/24 16:16 11/17/24 16:30 11/17/24 16:31 Temperature Pulse Rate 73 65 64 Respiratory Rate 20 16 17 Blood Pressure 129/65 135/68 Pulse Oximetry 98 99 98 Oxygen Delivery 11/17/24 16:45 11/17/24 17:21 11/17/24 17:30 Temperature Pulse Rate 62 72 72 Respiratory Rate 18 20 20 Blood Pressure Pulse Oximetry 100 Oxygen Delivery 11/17/24 18:24 11/17/24 18:43 11/17/24 20:00 Temperature 98.0 F Pulse Rate 68 Respiratory Rate 16 Blood Pressure 133/72 Pulse Oximetry 99 Oxygen Delivery Room Air Room Air 11/17/24 20:00 11/17/24 20:06 11/18/24 00:00 Temperature 98 F Pulse Rate 65 61 57 L Respiratory Rate 16 Blood Pressure 151/112 H Pulse Oximetry 99 Oxygen Delivery 11/18/24 04:00 11/18/24 04:34 Temperature 97.9 F Pulse Rate 56 L 67 Respiratory Rate 14 Blood Pressure 154/128 H Pulse Oximetry 95 Oxygen Delivery Intake/Output Intake/Output: Intake & Output 11/15/24 11/16/24 11/17/24 11/18/24 23:59 23:59 23:59 23:59 Intake Total 1200 50 Output Total 50 600 Balance 1150 -550 Meds/Results Medications: Active Medications Generic Name Dose Route Start Last Admin Trade Name Freq PRN Reason Stop Dose Admin Acetaminophen 650 mg 11/18/24 04:10 Acetaminophen 325 Mg Tablet PO Q6H PRN pain 1-3 or fever Hydrocodone Bitart/Acetaminophen 1 tab 11/18/24 04:10 Hydrocodone/Acetaminophen (*Crx) 5-325 Mg Tablet PO Q6H PRN pain 4-10 Al Hydrox/Mg Hydrox/Simethicone 30 ml 11/18/24 04:49 Mag Hydrox/Al Hydrox/Simeth 30 Ml Udc PO Q6H PRN Abdominal Discomfort Atenolol 50 mg 11/18/24 09:00 Atenolol 50 Mg Tablet PO BID CARRIE Atorvastatin Calcium 40 mg 11/18/24 21:00 Atorvastatin 40 Mg Tablet PO HS CARRIE Cyanocobalamin 1,000 mcg 11/18/24 09:00 11/18/24 08:08 Cyanocobalamin 1,000 Mcg Tablet PO 1,000 mcg QAM CARRIE Administration Dicyclomine HCl 20 mg 11/18/24 09:00 11/18/24 08:08 Dicyclomine Hcl 10 Mg Capsule PO 20 mg TID CARRIE Administration Hydralazine HCl 25 mg 11/18/24 08:00 11/18/24 08:08 Hydralazine Hcl 25 Mg Tablet PO 25 mg TIDWM CARRIE Administration Hydroxyzine HCl 25 mg 11/18/24 09:00 11/18/24 08:08 Hydroxyzine Hcl 25 Mg Tablet PO 25 mg DAILY CARRIE Administration Sodium Chloride 1,000 mls @ 200 mls/hr 11/18/24 07:05 11/18/24 08:07 Normal Saline Iv IV CONT 200 mls/hr .Q5H CARRIE Administration Loratadine 10 mg 11/18/24 21:00 Loratadine 10 Mg Tablet PO HS CARRIE Mirtazapine 7.5 mg 11/18/24 09:00 11/18/24 08:08 Mirtazapine 7.5 Mg Tablet PO 7.5 mg DAILY CARRIE Administration Oxybutynin Chloride 5 mg 11/18/24 09:00 11/18/24 08:08 Oxybutynin Chloride 5 Mg Tablet PO 5 mg BID CARRIE Administration Pantoprazole Sodium 40 mg 11/18/24 09:00 11/18/24 08:08 Pantoprazole 40 Mg Tablet PO 40 mg BID CARRIE Administration Sucralfate 1 gm 11/18/24 07:00 11/18/24 08:07 Sucralfate 1 Gm Tablet PO 1 gm 0700,1100,1600,2100 CARRIE Administration Vitamin D 125 mcg 11/18/24 09:00 11/18/24 08:08 Cholecalciferol (Vitamin D3) 125 Mcg (5,000 Units) Tablet BY MOUTH 125 mcg DAILY CARRIE Administration Labs Labs: Laboratory Results - last 24 hr 11/17/24 11/17/24 11/18/24 14:18 15:30 04:11 WBC 9.4 RBC 4.36 Hgb 8.2 L Hct 28.4 L MCV 65.1 L MCH 18.8 L MCHC 28.9 L RDW 16.8 H Plt Count 364 MPV 11.0 H Immature Gran % (Auto) 0.4 Neut % (Auto) 55.6 Lymph % (Auto) 32.4 [place] % (Auto) 9.5 H Eos % (Auto) 1.7 Baso % (Auto) 0.4 Lymph # (Auto) 3.05 [place] # (Auto) 0.9 H Eos # (Auto) 0.2 Baso # (Auto) 0.0 Abs Immat Gran (auto) 0.04 H Absolute Neuts (auto) 5.2 Absolute Nucleated RBC 0.000 Band Neutrophils % 0 Nucleated RBC % 0.0 Platelet Estimate Adequate Hypochromasia 1+ Anisocytosis 2+ Microcytosis 1+ Schistocytes None seen PT 14.1 INR 1.1 APTT 30.7 Sodium 130 L Potassium 2.8 L* Chloride 90 L Carbon Dioxide 30 Anion Gap 10 BUN 11 D Creatinine 1.20 H Estim Creat Clear Calc Not Reportable Estimated GFR 43 L Glucose 130 H Calcium 8.5 Magnesium Iron 16 L TIBC 330 % Saturation 5 L Total Bilirubin 0.3 AST 31 ALT 15 Alkaline Phosphatase 75 Troponin I 0.017 Total Protein 6.2 L Albumin 3.4 L Urine Color Yellow Urine Appearance Cloudy H Urine pH 6.0 Ur Specific [place] 1.007 Urine Protein Trace Urine Glucose (UA) Negative Urine Ketones Negative Ur Blood (Man) Negative Urine Nitrate Positive H Urine Bilirubin Negative Urine Urobilinogen 0.2 Add Ur Microanalysis Reviewed Leukocyte Esterase Rfl 3+ H Urine RBC 21-50 H Urine WBC 51-100 H Ur Squamous Epith Cells None seen Urine Bacteria 4+ H Urine Casts 3-5 11/18/24 04:41 WBC 8.2 RBC 4.24 Hgb 8.1 L Hct 27.8 L MCV 65.6 L MCH 19.1 L MCHC 29.1 L RDW 16.7 H Plt Count 319 MPV 11.4 H Immature Gran % (Auto) Neut % (Auto) Lymph % (Auto) [place] % (Auto) Eos % (Auto) Baso % (Auto) Lymph # (Auto) [place] # (Auto) Eos # (Auto) Baso # (Auto) Abs Immat Gran (auto) Absolute Neuts (auto) Absolute Nucleated RBC Band Neutrophils % Nucleated RBC % Platelet Estimate Hypochromasia Anisocytosis Microcytosis Schistocytes PT INR APTT Sodium 135 L Potassium 3.2 L Chloride 96 L Carbon Dioxide 34 H Anion Gap 5 BUN 10 Creatinine 1.09 H Estim Creat Clear Calc 35 Estimated GFR 48 L Glucose 83 Calcium 8.7 Magnesium 1.7 Iron TIBC % Saturation Total Bilirubin AST ALT Alkaline Phosphatase Troponin I Total Protein Albumin Urine Color Urine Appearance Urine pH Ur Specific [place] Urine Protein Urine Glucose (UA) Urine Ketones Ur Blood (Man) Urine Nitrate Urine Bilirubin Urine Urobilinogen Add Ur Microanalysis Leukocyte Esterase Rfl Urine RBC Urine WBC Ur Squamous Epith Cells Urine Bacteria Urine Casts Quality VTE Prophylaxis VTE prophylaxis: mechanical ordered (SCDs)
[2024-11-18 08:57] LABS: Ferritin 5.87 ng/mL (11.1-264)
[2024-11-18] MEDS: atenoloL 25 MG TABLET PO (16:52)
[2024-11-18] MEDS: LORATADINE 10 MG TABLET PO (20:55)
[2024-11-18] MEDS: ATORVASTATIN 40 MG TABLET PO (20:55)
[2024-11-19] VITALS (13 sets, daily range): BP systolic 104–143; BP diastolic 61–85; PULSE 65–93; RESP 16–20; TEMP 36.2–36.5; O2SAT 97–100
--- NOTE | 2024-11-19 | ECHO_ITS ---
Patient Info Name: Susana Napoles Age: 84 years : 1940 Gender: Female Ht: 61 in Wt: 203 lbs BSA: 2.04 m2 HR: 74 bpm BP: 143 / 85 mmHg Heart Rhythm: Sinus Rhythm Technical Quality: Poor Exam Date: 11/19/2024 3:31 PM Patient Status: I Admit Date: 11/19/2024 Exam Type: CA echo dop color flow w con Complete two-dimensional, color flow and Doppler transthoracic echocardiogram is performed with contrast to opacify the left ventricle and to improve the deliniation of the left ventricle endocardial borders. Truck Driver Flatbed: Marina Neumann Attending Provider: Michael Boswell Contrast/Agitated Saline Contrast/Ag. Saline: Definity Amount: 2.00 ml Administered By: Marina Neumann Existing IV Access: Yes IV Access Condition: patent with no signs of infiltration Summary 1. Technically difficult study with poorly visualized acoustic windows. 2. There is normal biventricular size and systolic function. 3. There are no significant valvular abnormalities. Left Ventricle The left ventricle is normal in size and systolic function. The left ventricular ejection fraction is visually estimated to be 60-65%. There are no regional wall motion abnormalities. Right Ventricle The right ventricle is normal in size and systolic function. Left Atria The left atrium is mildly dilated. Right Atria Right atrium is normal size. Atrial Septum The atrial septum is not well visualized. Aortic Valve There is no hemodynamically significant aortic stenosis by echo Doppler gradients. Mitral Valve The mitral valve is sclerotic. There is no mitral stenosis. There is no mitral regurgitation. Tricuspid Valve The tricuspid valve is grossly normal. There is trace tricuspid regurgitation. Pericardium/Pleural There is trace pericardial effusion. Inferior Vena Cava Inferior vena cava is not well visualized. Aorta The aortic root is not well visualized. Left Ventricular Outflow Tract Name Value Normal LVOT 2D LVOT Diameter 2.0 cm LVOT Doppler LVOT Peak Velocity 111 cm/s LVOT Peak Gradient 5 mmHg LVOT Mean Gradient 2 mmHg LVOT VTI 21 cm LVOT VTI/AV VTI Ratio 0.8 LVOT Stroke Volume 69 ml LVOT CO 6.3 l/min LVOT CI 3.1 l/min/m2 Mitral Valve Name Value Normal MV Diastolic Function MV E Peak Velocity 133 cm/s MV A Peak Velocity 2 cm/s MV E/A 71.3 MV Decel Time (PW) 108 ms MV Annular TDI MV E/e' (Septal) 13.4 MV E/e' (Lateral) 21.4 MV E/e' (Average) 17.4 Tricuspid Valve Name Value Normal TV Regurgitation Doppler TR Peak Velocity 245 cm/s TR Peak Gradient 24 mmHg Estimated PAP/RSVP RA Pressure 10 mmHg <=5 PA Systolic Pressure 34 mmHg <36 RV Systolic Pressure 34 mmHg <36 TV Annular TDI TV Lateral Maria Alejandra s' Velocity 14.2 cm/s >=9.5 Aortic Valve Name Value Normal AV Doppler AV Peak Velocity 149 cm/s AV Peak Gradient 9 mmHg AV Mean Gradient 5 mmHg AV VTI 28 cm AV Area (Cont Eq VTI) 2.5 cm2 >=3.0 AV Area (Cont Eq Genaro) 2.4 cm2 AV DI (Genaro) 0.74 AV Regurgitation 2D LVOT Area 3.3 cm2 Ventricles Name Value Normal LV Dimensions 2D/MM IVS Diastolic Thickness (2D) 1.0 cm 0.6-1.0 LVID Diastole (2D) 5.4 cm 3.8-5.2 LVIW Diastolic Thickness (2D) 1.0 cm 0.6-0.9 LVID Systole (2D) 3.2 cm 2.2-3.5 LVOT Diameter 2.0 cm LV Mass (2D Cubed) 205.57 g 67.00-162.00 LV Mass Index (2D Cubed) 101 g/m2 43-95 Relative Wall Thickness (2D) 0.38 <=0.42 LV Fractional Shortening/Ejection Fraction 2D/MM LV Fractional Shortening (2D) 41 % 27-45 LV EF (2D Teichholz) 72 % LV Diastolic Volume (4C MOD) 39 ml LV EF (4C MOD) 61 % LV Diastolic Volume (2C MOD) 54 ml LV EF (2C MOD) 65 % LV Diastolic Volume (BP MOD) 47 ml 46-106 LV Diastolic Volume Index (BP MOD) 23 ml/m2 29-61 LV Systolic Volume (BP MOD) 17 ml 14-42 LV Systolic Volume Index (BP MOD) 9 ml/m2 8-24 LV EF (BP MOD) 63 % 54-74 LV Diastolic Length (4C) 7.4 cm LV Systolic Length (4C) 6.4 cm LV Stroke Volume (4C MOD) 24 ml Atria Name Value Normal LA Dimensions LA Volume (4C A-L) 47 ml LA Volume (BP A-L) 53 ml RA Dimensions RA Area (4C) 18.0 cm2 <=18.0 Report Signatures
[2024-11-19 05:18] LABS: Hematocrit 26.2 % (37.0-47.0); Hemoglobin 7.4 g/dL (12.0-15.0); Mean Corpuscular HGB Conc 28.2 g/dl (32-36); Mean Corpuscular Hemoglobin 18.7 pg (26-34); Mean Corpuscular Volume 66.2 fl (80-100); Mean Platelet Volume 11.4 fl (7.4-10.4); Platelet Count Result 308 k/mm3 (150-375); Red Blood Count 3.96 M/mm3 (4.2-5.4); Red Cell Distribution Width 16.8 % (11.5-14.5); White Blood Count 9.8 K/mm3 (4.5-10.0)
[2024-11-19 05:30] LABS: Alanine Aminotransferase 11 U/L (6-35); Albumin Level 2.9 g/dL (3.5-5.1); Alkaline Phosphatase 63 U/L (38-126); Anion Gap 6 mmol/L (4-12); Aspartate Amino Transferase 24 U/L (14-36); Bilirubin,Total 0.1 mg/dL (0.2-1.3); Blood Urea Nitrogen 11 mg/dL (7-17); Calcium 8.6 mg/dL (8.4-10.2); Carbon Dioxide 30 mmol/L (22-30); Chloride 97 mmol/L (98-107); Estimated CRCL calculation 39 ml/min; Estimated Glomerular Filt Rate 55; Glucose 97 mg/dL (65-110); Potassium 3.5 mmol/L (3.4-5.0); Sodium 133 mmol/L (137-145); Total Protein 5.6 g/dL (6.3-8.2)
[2024-11-19] MEDS: SUCRALFATE 1 GM TABLET PO ×4 (06:13→21:39)
--- NOTE | 2024-11-19 07:14 | P.PNIM_ITS ---
Progress Note: A&P Assessment and Plan (1) Vasovagal syncope: Code(s): R55 - Syncope and collapse Status: Acute Assessment and Plan: Per chart review, patient had been up to the commode and had diarrheal bowel movement. Staff was cleaning the patient up when she then vomited. She sat down in her wheelchair and briefly went unresponsive. When EMS arrived to the facility the patient was lying in the bed pale and diaphoretic. She was hypotensive with manual blood pressure of 90/60. Her glucose for EMS was 149. Denies dizziness/lightheadedness Troponin WNL Blood pressures remain stable. Glucose WNL EKG shows sinus bradycardia Echo ordered (2) Acute UTI: Code(s): N39.0 - Urinary tract infection, site not specified Status: Acute Assessment and Plan: - UA with cloudy appearance, + nitrates, 3+ leukocytes, 21-50RBC, 51-100WBC, and 4+ bacteria - UC obtained on 11/17: ecoli - no previous micro to be reviewed - started on rocephin on 11/19, transitioned to keflex based on sensitivities (3) Acute hypokalemia: Code(s): E87.6 - Hypokalemia Status: Acute Assessment and Plan: Her electrolyte panel demonstrated hypokalemia with K 2.8 likely secondary to diarrhea and vomiting. Received both IV and p.o. potassium supplements. Repeat potassium level following supplementation remained low. Given the recurrent hypokalemia magnesium level was also checked which was lower limit of normal. 2 g magnesium sulfate rider has been administered. 11/19: K 3.5. Given another 40 meq PO. (4) Dehydration: Code(s): E86.0 - Dehydration Status: Acute Assessment and Plan: She had normal blood pressures when she arrived to the ER and received 1 L of IV fluids. Patient has not had any recurrence of loose stools. She was not having any urine output on arrival to the medical floor. Was given additional 1 L fluid. 11/19: Blood pressures remain stable. UOP WNL. (5) CKD (chronic kidney disease) stage 3, GFR 30-59 ml/min: Qualifiers: Chronic kidney disease stage 3 subtype: stage 3a (GFR 45-59) Qualified Code(s): N18.31 - Chronic kidney disease, stage 3a Code(s): N18.30 - Chronic kidney disease, stage 3 unspecified Status: Acute Assessment and Plan: Chronic, appears at baseline - avoid nephrotoxic medications - renally dose medications - monitor I/O (6) Hypochromic microcytic anemia: Code(s): D50.9 - Iron deficiency anemia, unspecified Status: Acute Assessment and Plan: Patient does have chronic microcytic hypochromic anemia. No signs of active bleeding - Iron panel: iron 16, TIBC 330, % aguilar 5, ferritin 5.87 - started on iron supplementation (7) Dementia: Qualifiers: Dementia behavioral or psychological symptom: without behavioral, psychotic, or mood disturbance or anxiety Dementia severity: severe Dementia type: unspecified type Qualified Code(s): F03.C0 - Unspecified dementia, severe, without behavioral disturbance, psychotic disturbance, mood disturbance, and anxiety Code(s): F03.90 - Unspecified dementia, unspecified severity, without behavioral disturbance, psychotic disturbance, mood disturbance, and anxiety Status: Acute Time Spent With Patient Time with patient: 25 - 35 minutes Subjective Date/time seen: 11/19/24 07:14 Interval history: 84-year-old female with a past medical history of dementia, essential hypertension, GERD, chronic kidney disease stage 3, CHF, microcytic anemia and irritable bowel syndrome who presented to the ER from [facility] due to unresponsive episode. Patient is pleasant lying comfortably in her bed. She remains alert and oriented x2. She states that the vomiting and diarrhea have resolved. She has no intermittent burning with urination. She remains on antibiotics for urinary tract infection. She has no other complaints denies chest pain, palpitations, shortness of breath, and abdominal pain. Review of Systems Review of Systems: All systems reviewed & are unremarkable except as noted in HPI and below Exam Narrative: AF HR 74 RR 16 SpO2 99 BP 143/85 General: female in no acute respiratory distress who is nontoxic appearing, lying semi recumbent in bed. HEENT: Normocephalic. Atraumatic. Extraocular movement intact. Sclera clear and anicteric. No facial asymmetry. Chest: Lungs are clear to auscultation bilaterally. No wheezes or crackles. CV: Heart was regular rate and rhythm. S1-S2. No murmurs, gallops, or rubs. Abd: Abdomen was soft. Slight hypogastric tenderness. Nondistended. Positive bowel sounds. Ext: No clubbing, cyanosis, or edema. DP pulses bilaterally. Neuro: Patient is alert and oriented x2 (person, place). Speech is clear. Objective Data Vital Signs Vital Signs: Vital Signs - 24 hr 11/18/24 08:00 11/18/24 08:00 11/18/24 11:51 Temperature Pulse Rate 58 L Respiratory Rate Blood Pressure 126/47 L Pulse Oximetry 95 Oxygen Delivery Room Air Fraction of Inspired Oxygen 11/18/24 12:00 11/18/24 14:00 11/18/24 16:00 Temperature 98.5 F Pulse Rate 78 77 64 Respiratory Rate 15 Blood Pressure 120/49 L Pulse Oximetry 100 Oxygen Delivery Fraction of Inspired Oxygen 11/18/24 16:52 11/18/24 19:21 11/18/24 20:00 Temperature Pulse Rate 71 70 72 Respiratory Rate 20 Blood Pressure Pulse Oximetry 90 Oxygen Delivery Room Air Fraction of Inspired Oxygen 21 11/18/24 20:00 11/18/24 20:55 11/19/24 00:00 Temperature 97.1 F L Pulse Rate 70 65 Respiratory Rate 22 H Blood Pressure 127/69 Pulse Oximetry 98 Oxygen Delivery Room Air Fraction of Inspired Oxygen 11/19/24 04:00 11/19/24 04:38 Temperature 97.7 F Pulse Rate 67 73 Respiratory Rate 20 Blood Pressure 138/72 Pulse Oximetry 98 Oxygen Delivery Fraction of Inspired Oxygen Intake/Output Intake/Output: Intake & Output 11/16/24 11/17/24 11/18/24 11/19/24 23:59 23:59 23:59 23:59 Intake Total 1200 770 240 Output Total 50 1000 800 Balance 6012 -294 -536 Meds/Results Medications: Active Medications Generic Name Dose Route Start Last Admin Trade Name Freq PRN Reason Stop Dose Admin Acetaminophen 650 mg 11/18/24 04:10 Acetaminophen 325 Mg Tablet PO Q6H PRN pain 1-3 or fever Hydrocodone Bitart/Acetaminophen 1 tab 11/18/24 04:10 Hydrocodone/Acetaminophen (*Crx) 5-325 Mg Tablet PO Q6H PRN pain 4-10 Al Hydrox/Mg Hydrox/Simethicone 30 ml 11/18/24 04:49 Mag Hydrox/Al Hydrox/Simeth 30 Ml Udc PO Q6H PRN Abdominal Discomfort Atenolol 25 mg 11/18/24 17:00 11/18/24 16:52 Atenolol 25 Mg Tablet PO 25 mg BID CARRIE Administration Atorvastatin Calcium 40 mg 11/18/24 21:00 11/18/24 20:55 Atorvastatin 40 Mg Tablet PO 40 mg HS CARRIE Administration Cyanocobalamin 1,000 mcg 11/18/24 09:00 11/18/24 08:08 Cyanocobalamin 1,000 Mcg Tablet PO 1,000 mcg QAM CARRIE Administration Dicyclomine HCl 20 mg 11/18/24 09:00 11/18/24 16:52 Dicyclomine Hcl 10 Mg Capsule PO 20 mg TID CARRIE Administration Hydralazine HCl 25 mg 11/18/24 08:00 11/18/24 16:52 Hydralazine Hcl 25 Mg Tablet PO 25 mg TIDWM CARRIE Administration Hydroxyzine HCl 25 mg 11/18/24 09:00 11/18/24 08:08 Hydroxyzine Hcl 25 Mg Tablet PO 25 mg DAILY CARRIE Administration Loratadine 10 mg 11/18/24 21:00 11/18/24 20:55 Loratadine 10 Mg Tablet PO 10 mg HS CARRIE Administration Mirtazapine 7.5 mg 11/18/24 09:00 11/18/24 08:08 Mirtazapine 7.5 Mg Tablet PO 7.5 mg DAILY CARRIE Administration Oxybutynin Chloride 5 mg 11/18/24 09:00 11/18/24 16:53 Oxybutynin Chloride 5 Mg Tablet PO 5 mg BID CARRIE Administration Pantoprazole Sodium 40 mg 11/18/24 09:00 11/18/24 16:53 Pantoprazole 40 Mg Tablet PO 40 mg BID CARRIE Administration Polysaccharide Iron Complex 150 mg 11/19/24 08:00 Polysaccharide Iron Complex 150 Mg Capsule PO DAILY@0800 [facility] Potassium Chloride 40 meq 11/19/24 09:00 Potassium Chloride 20 Meq Packet (For Liquid) PO DAILY [facility] Sucralfate 1 gm 11/18/24 07:00 11/19/24 06:13 Sucralfate 1 Gm Tablet PO 1 gm 0700,1100,1600,2100 CARRIE Administration Vitamin D 125 mcg 11/18/24 09:00 11/18/24 08:08 Cholecalciferol (Vitamin D3) 125 Mcg (5,000 Units) Tablet BY MOUTH 125 mcg DAILY CARRIE Administration Labs Labs: Laboratory Results - last 24 hr 11/18/24 11/19/24 04:11 04:35 WBC 9.8 RBC 3.96 L Hgb 7.4 L Hct 26.2 L MCV 66.2 L MCH 18.7 L MCHC 28.2 L RDW 16.8 H Plt Count 308 MPV 11.4 H Sodium 133 L Potassium 3.5 Chloride 97 L Carbon Dioxide 30 Anion Gap 6 BUN 11 Creatinine 0.97 Estim Creat Clear Calc 39 Estimated GFR 55 L Glucose 97 Calcium 8.6 Iron 16 L TIBC 330 % Saturation 5 L Ferritin 5.87 L Total Bilirubin 0.1 L AST 24 ALT 11 Alkaline Phosphatase 63 Total Protein 5.6 L Albumin 2.9 L Quality VTE Prophylaxis VTE prophylaxis: pharmacologic ordered
[2024-11-19] MEDS: hydrALAZINE HCL 25 MG TABLET PO ×3 (08:41→17:00)
[2024-11-19] MEDS: CHOLECALCIFEROL (VITAMIN D3) 125 MCG (5,000 UNITS) TABLET BY MOUTH (08:41)
[2024-11-19] MEDS: DICYCLOMINE HCL 10 MG CAPSULE 20 MG PO ×3 (08:41→17:01)
[2024-11-19] MEDS: hydrOXYzine HCL 25 MG TABLET PO (08:41)
[2024-11-19] MEDS: MIRTAZAPINE 7.5 MG TABLET PO (08:41)
[2024-11-19] MEDS: atenoloL 25 MG TABLET PO ×2 (08:41→17:00)
[2024-11-19] MEDS: POLYSACCHARIDE IRON COMPLEX 150 MG CAPSULE PO (08:41)
[2024-11-19] MEDS: CYANOCOBALAMIN 1,000 MCG TABLET 1000 MCG PO (08:41)
[2024-11-19] MEDS: POTASSIUM CHLORIDE 20 MEQ ER TABLET 40 MEQ PO (08:41)
[2024-11-19] MEDS: oxyBUTYnin CHLORIDE 5 MG TABLET PO ×2 (08:41→17:01)
[2024-11-19] MEDS: PANTOPRAZOLE 40 MG TABLET PO ×2 (08:42→17:00)
[2024-11-19] MEDS: POTASSIUM CHLORIDE 20 MEQ PACKET (FOR LIQUID) 40 MEQ PO (08:42)
[2024-11-19] MEDS: PERFLUTREN LIPID MICROSPHERES 1.5 ML VIAL DILUTED TO 10 ML TOTAL VOLUME IV PUSH (16:00)
--- NOTE | 2024-11-19 16:16 | IVDEFINITY ---
Prior to administration of IV Definity the patient was educated on the risks and benefits of the imaging enhancing agent including potential adverse side effects. The patient verbalized understanding. Allergies were verified. No exclusion criteria were identified and at least one of the following inclusion criteria were met: 1) physician request, 2) patient technically difficult to image (per the [place] [employer] guidelines of two or more segments not discernable within the apical view), or 3) questionable left ventricular function. ?
[2024-11-19] MEDS: LORATADINE 10 MG TABLET PO (21:39)
[2024-11-19] MEDS: ATORVASTATIN 40 MG TABLET PO (21:39)
[2024-11-20] VITALS (13 sets, daily range): BP systolic 111–160; BP diastolic 42–75; PULSE 70–84; RESP 18; TEMP 36.1–36.2; O2SAT 97–100
[2024-11-20 05:44] LABS: Hematocrit 26.1 % (37.0-47.0); Hemoglobin 7.4 g/dL (12.0-15.0); Mean Corpuscular HGB Conc 28.4 g/dl (32-36); Mean Corpuscular Hemoglobin 18.8 pg (26-34); Mean Corpuscular Volume 66.4 fl (80-100); Mean Platelet Volume 10.9 fl (7.4-10.4); Platelet Count Result 289 k/mm3 (150-375); Red Blood Count 3.93 M/mm3 (4.2-5.4); White Blood Count 9.6 K/mm3 (4.5-10.0)
[2024-11-20 06:10] LABS: Alanine Aminotransferase 11 U/L (6-35); Albumin Level 2.9 g/dL (3.5-5.1); Alkaline Phosphatase 60 U/L (38-126); Anion Gap 4 mmol/L (4-12); Aspartate Amino Transferase 26 U/L (14-36); Bilirubin,Total 0.1 mg/dL (0.2-1.3); Blood Urea Nitrogen 9 mg/dL (7-17); Calcium 9.2 mg/dL (8.4-10.2); Carbon Dioxide 28 mmol/L (22-30); Chloride 103 mmol/L (98-107); Estimated CRCL calculation 41 ml/min; Estimated Glomerular Filt Rate 57; Glucose 90 mg/dL (65-110); Potassium 4.7 mmol/L (3.4-5.0); Sodium 135 mmol/L (137-145); Total Protein 5.6 g/dL (6.3-8.2)
[2024-11-20] MEDS: SUCRALFATE 1 GM TABLET PO ×4 (06:12→20:45)
--- NOTE | 2024-11-20 07:44 | P.PNIM_ITS ---
Progress Note: A&P Assessment and Plan (1) Vasovagal syncope: Code(s): R55 - Syncope and collapse Status: Acute Assessment and Plan: Per chart review, patient had been up to the commode and had diarrheal bowel movement. Staff was cleaning the patient up when she then vomited. She sat down in her wheelchair and briefly went unresponsive. When EMS arrived to the facility the patient was lying in the bed pale and diaphoretic. She was hypotensive with manual blood pressure of 90/60. Her glucose for EMS was 149. Troponin WNL Blood pressures remain stable. Glucose WNL EKG shows sinus bradycardia, HR remains stable. Echo ordered Patient remains hemodynamically stable. She continues to deny dizziness/lightheadedness and no recurrence of syncope has occurred. Echo read is still pending. (2) Acute UTI: Code(s): N39.0 - Urinary tract infection, site not specified Status: Acute Assessment and Plan: - UA with cloudy appearance, + nitrates, 3+ leukocytes, 21-50RBC, 51-100WBC, and 4+ bacteria - UC obtained on 11/17: ecoli - no previous micro to be reviewed - started on rocephin on 11/19, transitioned to keflex based on sensitivities Remains on PO antibiotics. Denies urinary symptoms. (3) Acute hypokalemia: Code(s): E87.6 - Hypokalemia Status: Acute Assessment and Plan: Her electrolyte panel demonstrated hypokalemia with K 2.8 likely secondary to diarrhea and vomiting. Received both IV and p.o. potassium supplements. Repeat potassium level following supplementation remained low. Given the recurrent hypokalemia magnesium level was also checked which was lower limit of normal. 2 g magnesium sulfate rider has been administered. 11/20: K 4.7. Continue to monitor. (4) Dehydration: Code(s): E86.0 - Dehydration Status: Acute Assessment and Plan: She had normal blood pressures when she arrived to the ER and received 1 L of IV fluids. Patient has not had any recurrence of loose stools. She was not having any urine output on arrival to the medical floor. Was given additional 1 L fluid. Blood pressures remain stable. UOP WNL. (5) CKD (chronic kidney disease) stage 3, GFR 30-59 ml/min: Qualifiers: Chronic kidney disease stage 3 subtype: stage 3a (GFR 45-59) Qualified Code(s): N18.31 - Chronic kidney disease, stage 3a Code(s): N18.30 - Chronic kidney disease, stage 3 unspecified Status: Acute Assessment and Plan: Chronic, appears at baseline - avoid nephrotoxic medications - renally dose medications - monitor I/O (6) Hypochromic microcytic anemia: Code(s): D50.9 - Iron deficiency anemia, unspecified Status: Acute Assessment and Plan: Patient does have chronic microcytic hypochromic anemia. No signs of active bleeding - Iron panel: iron 16, TIBC 330, % aguilar 5, ferritin 5.87 - started on iron supplementation H/H remains stable. (7) Dementia: Qualifiers: Dementia behavioral or psychological symptom: without behavioral, psychotic, or mood disturbance or anxiety Dementia severity: severe Dementia type: unspecified type Qualified Code(s): F03.C0 - Unspecified dementia, severe, without behavioral disturbance, psychotic disturbance, mood disturbance, and anxiety Code(s): F03.90 - Unspecified dementia, unspecified severity, without behavioral disturbance, psychotic disturbance, mood disturbance, and anxiety Status: Acute Time Spent With Patient Time with patient: 25 - 35 minutes Subjective Date/time seen: 11/20/24 07:44 Interval history: 84-year-old female with a past medical history of dementia, essential hypertension, GERD, chronic kidney disease stage 3, CHF, microcytic anemia and irritable bowel syndrome who presented to the ER from [facility] due to unresponsive episode. Patient is pleasant lying comfortably in bed. He is alert and oriented x1 at this time. She has no complaints denying chest pain, shortness a breath, palpitations, nausea/vomiting, abdominal pain, dizziness/lightheadedness. Review of Systems Review of Systems: All systems reviewed & are unremarkable except as noted in HPI and below Exam Narrative: AF HR 75 RR 18 SpO2 100 BP 143/42 General: female in no acute respiratory distress who is nontoxic appearing, lying semi recumbent in bed. HEENT: Normocephalic. Atraumatic. Extraocular movement intact. Sclera clear and anicteric. No facial asymmetry. Chest: Lungs are clear to auscultation bilaterally. No wheezes or crackles. CV: Heart was regular rate and rhythm. S1-S2. No murmurs, gallops, or rubs. Abd: Abdomen was soft. Slight hypogastric tenderness. Nondistended. Positive bowel sounds. Ext: No clubbing, cyanosis, or edema. DP pulses bilaterally. Neuro: Patient is alert and oriented x1 (person). Speech is clear. Objective Data Vital Signs Vital Signs: Vital Signs - 24 hr 11/19/24 08:00 11/19/24 08:41 11/19/24 08:50 Temperature Pulse Rate 76 68 Respiratory Rate Blood Pressure Pulse Oximetry Oxygen Delivery Room Air 11/19/24 09:03 11/19/24 12:00 11/19/24 12:22 Temperature Pulse Rate 76 74 Respiratory Rate 16 Blood Pressure 143/85 H Pulse Oximetry 97 99 Oxygen Delivery Room Air 11/19/24 14:00 11/19/24 16:00 11/19/24 17:00 Temperature 97.7 F Pulse Rate 93 90 93 Respiratory Rate 19 Blood Pressure 138/61 Pulse Oximetry 100 Oxygen Delivery 11/19/24 20:00 11/19/24 20:00 11/19/24 21:38 Temperature 97.2 F L Pulse Rate 91 91 Respiratory Rate 18 Blood Pressure 104/64 Pulse Oximetry 100 Oxygen Delivery Room Air 11/20/24 00:00 11/20/24 04:00 11/20/24 06:00 Temperature 97.0 F L Pulse Rate 84 74 74 Respiratory Rate 18 Blood Pressure 111/58 L Pulse Oximetry 98 Oxygen Delivery Intake/Output Intake/Output: Intake & Output 11/17/24 11/18/24 11/19/24 11/20/24 23:59 23:59 23:59 23:59 Intake Total 1124 549 9232 440 Output Total 50 1000 1500 1000 Balance 1150 -230 -304 -560 Meds/Results Medications: Active Medications Generic Name Dose Route Start Last Admin Trade Name Freq PRN Reason Stop Dose Admin Acetaminophen 650 mg 11/18/24 04:10 Acetaminophen 325 Mg Tablet PO Q6H PRN pain 1-3 or fever Hydrocodone Bitart/Acetaminophen 1 tab 11/18/24 04:10 Hydrocodone/Acetaminophen (*Crx) 5-325 Mg Tablet PO Q6H PRN pain 4-10 Al Hydrox/Mg Hydrox/Simethicone 30 ml 11/18/24 04:49 Mag Hydrox/Al Hydrox/Simeth 30 Ml Udc PO Q6H PRN Abdominal Discomfort Atenolol 25 mg 11/18/24 17:00 11/19/24 17:00 Atenolol 25 Mg Tablet PO 25 mg BID CARRIE Administration Atorvastatin Calcium 40 mg 11/18/24 21:00 11/19/24 21:39 Atorvastatin 40 Mg Tablet PO 40 mg HS CARRIE Administration Cephalexin HCl 500 mg 11/20/24 09:00 Cephalexin 500 Mg Capsule PO 11/25/24 21:01 Q12HR CARRIE Cyanocobalamin 1,000 mcg 11/18/24 09:00 11/19/24 08:41 Cyanocobalamin 1,000 Mcg Tablet PO 1,000 mcg QAM CARRIE Administration Dicyclomine HCl 20 mg 11/18/24 09:00 11/19/24 17:01 Dicyclomine Hcl 10 Mg Capsule PO 20 mg TID CARRIE Administration Hydralazine HCl 25 mg 11/18/24 08:00 11/19/24 17:00 Hydralazine Hcl 25 Mg Tablet PO 25 mg TIDWM CARRIE Administration Hydroxyzine HCl 25 mg 11/18/24 09:00 11/19/24 08:41 Hydroxyzine Hcl 25 Mg Tablet PO 25 mg DAILY CARRIE Administration Loratadine 10 mg 11/18/24 21:00 11/19/24 21:39 Loratadine 10 Mg Tablet PO 10 mg HS CARRIE Administration Mirtazapine 7.5 mg 11/18/24 09:00 11/19/24 08:41 Mirtazapine 7.5 Mg Tablet PO 7.5 mg DAILY CARRIE Administration Oxybutynin Chloride 5 mg 11/18/24 09:00 11/19/24 17:01 Oxybutynin Chloride 5 Mg Tablet PO 5 mg BID CARRIE Administration Pantoprazole Sodium 40 mg 11/18/24 09:00 11/19/24 17:00 Pantoprazole 40 Mg Tablet PO 40 mg BID CARRIE Administration Polysaccharide Iron Complex 150 mg 11/19/24 08:00 11/19/24 08:41 Polysaccharide Iron Complex 150 Mg Capsule PO 150 mg DAILY@0800 CARRIE Administration Potassium Chloride 40 meq 11/19/24 09:00 11/19/24 08:42 Potassium Chloride 20 Meq Packet (For Liquid) PO 40 meq DAILY CARRIE Administration Sucralfate 1 gm 11/18/24 07:00 11/20/24 06:12 Sucralfate 1 Gm Tablet PO 1 gm 0700,1100,1600,2100 CARRIE Administration Vitamin D 125 mcg 11/18/24 09:00 11/19/24 08:41 Cholecalciferol (Vitamin D3) 125 Mcg (5,000 Units) Tablet BY MOUTH 125 mcg DAILY CARRIE Administration Labs Labs: Laboratory Results - last 24 hr 11/20/24 04:55 WBC 9.6 RBC 3.93 L Hgb 7.4 L Hct 26.1 L MCV 66.4 L MCH 18.8 L MCHC 28.4 L RDW 17.0 H Plt Count 289 MPV 10.9 H Sodium 135 L Potassium 4.7 Chloride 103 Carbon Dioxide 28 Anion Gap 4 BUN 9 Creatinine 0.94 Estim Creat Clear Calc 41 Estimated GFR 57 L Glucose 90 Calcium 9.2 Total Bilirubin 0.1 L AST 26 ALT 11 Alkaline Phosphatase 60 Total Protein 5.6 L Albumin 2.9 L Quality VTE Prophylaxis VTE prophylaxis: pharmacologic ordered
[2024-11-20] MEDS: POLYSACCHARIDE IRON COMPLEX 150 MG CAPSULE PO (08:29)
[2024-11-20] MEDS: oxyBUTYnin CHLORIDE 5 MG TABLET PO ×2 (08:29→16:47)
[2024-11-20] MEDS: PANTOPRAZOLE 40 MG TABLET PO ×2 (08:29→16:47)
[2024-11-20] MEDS: CHOLECALCIFEROL (VITAMIN D3) 125 MCG (5,000 UNITS) TABLET BY MOUTH (08:29)
[2024-11-20] MEDS: DICYCLOMINE HCL 10 MG CAPSULE 20 MG PO ×3 (08:29→16:47)
[2024-11-20] MEDS: CYANOCOBALAMIN 1,000 MCG TABLET 1000 MCG PO (08:30)
[2024-11-20] MEDS: MIRTAZAPINE 7.5 MG TABLET PO (08:30)
[2024-11-20] MEDS: CEPHALEXIN 500 MG CAPSULE PO ×2 (08:30→20:41)
[2024-11-20] MEDS: hydrALAZINE HCL 25 MG TABLET PO ×3 (08:30→16:46)
[2024-11-20] MEDS: atenoloL 25 MG TABLET PO ×2 (08:30→16:46)
[2024-11-20] MEDS: POTASSIUM CHLORIDE 20 MEQ PACKET (FOR LIQUID) 40 MEQ PO (08:30)
[2024-11-20] MEDS: hydrOXYzine HCL 25 MG TABLET PO (08:30)
[2024-11-20] MEDS: ACETAMINOPHEN 325 MG TABLET 650 MG PO (13:09)
--- NOTE | 2024-11-20 15:28 | PCPTNOTE ---
Attempted PT evaluation, pt refused. Pt's spouse present for refusal. Nurse aware. Will follow.
[2024-11-20] MEDS: ATORVASTATIN 40 MG TABLET PO (20:40)
[2024-11-20] MEDS: LORATADINE 10 MG TABLET PO (20:41)
[2024-11-21] VITALS: PULSE 72
[2024-11-21 04:00] VITALS: PULSE 70
[2024-11-21 06:00] VITALS: BP 158/90; PULSE 78; RESP 18; TEMP 36.4; O2SAT 99
[2024-11-21 06:19] LABS: Hematocrit 27.8 % (37.0-47.0); Hemoglobin 7.8 g/dL (12.0-15.0); Mean Corpuscular HGB Conc 28.1 g/dl (32-36); Mean Corpuscular Hemoglobin 18.6 pg (26-34); Mean Corpuscular Volume 66.2 fl (80-100); Mean Platelet Volume 11.4 fl (7.4-10.4); Platelet Count Result 314 k/mm3 (150-375); Red Cell Distribution Width 17.1 % (11.5-14.5)
[2024-11-21] MEDS: SUCRALFATE 1 GM TABLET PO ×2 (06:41→12:05)
[2024-11-21 06:47] LABS: Alanine Aminotransferase 14 U/L (6-35); Albumin Level 3.1 g/dL (3.5-5.1); Alkaline Phosphatase 65 U/L (38-126); Anion Gap 5 mmol/L (4-12); Aspartate Amino Transferase 29 U/L (14-36); Bilirubin,Total 0.2 mg/dL (0.2-1.3); Blood Urea Nitrogen 11 mg/dL (7-17); Calcium 9.6 mg/dL (8.4-10.2); Carbon Dioxide 27 mmol/L (22-30); Chloride 102 mmol/L (98-107); Estimated CRCL calculation 40 ml/min; Estimated Glomerular Filt Rate 56; Glucose 88 mg/dL (65-110); Potassium 4.7 mmol/L (3.4-5.0); Sodium 134 mmol/L (137-145)
[2024-11-21 09:02] VITALS: PULSE 69
[2024-11-21] MEDS: PANTOPRAZOLE 40 MG TABLET PO (09:02)
[2024-11-21] MEDS: MIRTAZAPINE 7.5 MG TABLET PO (09:02)
[2024-11-21] MEDS: atenoloL 25 MG TABLET PO (09:02)
[2024-11-21] MEDS: POLYSACCHARIDE IRON COMPLEX 150 MG CAPSULE PO (09:02)
[2024-11-21] MEDS: hydrALAZINE HCL 25 MG TABLET PO ×2 (09:02→12:05)
[2024-11-21] MEDS: POTASSIUM CHLORIDE 20 MEQ PACKET (FOR LIQUID) 40 MEQ PO (09:03)
[2024-11-21] MEDS: CYANOCOBALAMIN 1,000 MCG TABLET 1000 MCG PO (09:03)
[2024-11-21] MEDS: CHOLECALCIFEROL (VITAMIN D3) 125 MCG (5,000 UNITS) TABLET BY MOUTH (09:03)
[2024-11-21] MEDS: DICYCLOMINE HCL 10 MG CAPSULE 20 MG PO ×2 (09:03→12:05)
[2024-11-21] MEDS: oxyBUTYnin CHLORIDE 5 MG TABLET PO (09:03)
[2024-11-21] MEDS: CEPHALEXIN 500 MG CAPSULE PO (09:03)
[2024-11-21] MEDS: hydrOXYzine HCL 25 MG TABLET PO (09:03)
--- NOTE | 2024-11-21 10:24 | P.DS_ITS ---
DS: Admitting Diagnosis Discharge Date 11/21/2024 Admitting Diagnosis Vasovagal syncope Acute UTI Acute hypokalemia Dehydration CKD Hypochromic microcytic anemia Dementia DS: Discharge Diagnosis Discharge Diagnosis (1) Vasovagal syncope: Code(s): R55 - Syncope and collapse Status: Acute (2) Acute UTI: Code(s): N39.0 - Urinary tract infection, site not specified Status: Acute (3) Acute hypokalemia: Code(s): E87.6 - Hypokalemia Status: Acute (4) Dehydration: Code(s): E86.0 - Dehydration Status: Acute (5) CKD (chronic kidney disease) stage 3, GFR 30-59 ml/min: Qualifiers: Chronic kidney disease stage 3 subtype: stage 3a (GFR 45-59) Qualified Code(s): N18.31 - Chronic kidney disease, stage 3a Code(s): N18.30 - Chronic kidney disease, stage 3 unspecified Status: Acute (6) Hypochromic microcytic anemia: Code(s): D50.9 - Iron deficiency anemia, unspecified Status: Acute (7) Dementia: Qualifiers: Dementia behavioral or psychological symptom: without behavioral, psychotic, or mood disturbance or anxiety Dementia severity: severe Dementia type: unspecified type Qualified Code(s): F03.C0 - Unspecified dementia, severe, without behavioral disturbance, psychotic disturbance, mood disturbance, and anxiety Code(s): F03.90 - Unspecified dementia, unspecified severity, without behavioral disturbance, psychotic disturbance, mood disturbance, and anxiety Status: Acute DS: Summary Hospital Course Reason for hospitalization: Vasovagal syncope Acute UTI Acute hypokalemia Dehydration CKD Hypochromic microcytic anemia Dementia Hospital Course: 84-year-old female with a past medical history of dementia, essential hypertension, GERD, chronic kidney disease stage 3, CHF, microcytic anemia and irritable bowel syndrome who presented to the ER from [facility] due to unresponsive episode. Per chart review, patient had been up to the commode and had diarrheal bowel movement. Staff was cleaning the patient up when she then vomited. She sat down in her wheelchair and briefly went unresponsive. When EMS arrived to the facility the patient was lying in the bed pale and diaphoretic. She was hypotensive with manual blood pressure of 90/60. Her glucose for EMS was 149. On arrival vitals were stable. Troponin was negative. Her electrolyte panel demonstrated hypokalemia with K 2.8 likely secondary to diarrhea and vomiting. Received both IV and p.o. potassium supplements. Repeat potassium level following supplementation remained low. Given the recurrent hypokalemia magnesium level was also checked which was lower limit of normal. 2 g magnesium sulfate rider was administered. Patients potassium remained WNL the rest of admission. Patient was noted to be anemic on admission, iron panel showed deficiency. Patient started on iron supplementation. EKG showed bradycardia. Echo showed LVEF 60-65%. During admission UA was concerning for infection, started on IV antibiotics. Urine culture grew ecoli and patient was transitioned to keflex based on sensitivities to complete the course. Patient remained at her baseline mental status throughout admission. At time of discharge she had no complaints denying chest pain, shortness a breath, palpitations, nausea/vomiting, and abdominal pain. Patient discharged back to her skilled nursing residential in a stable condition. She is to complete her antibiotics as prescribed and follow-up with her primary care provider in 1 week. Status at Discharge Functional status at discharge: wheelchair bound Time Spent with Patient Time attestation: Total time spent providing and/or coordinating discharge services: Time spent: Greater than 30 minutes Exam Narrative: AF HR 78 RR 18 SPO2 99 BP 158/90 General: female in no acute respiratory distress who is nontoxic appearing, lying semi recumbent in bed. HEENT: Normocephalic. Atraumatic. Extraocular movement intact. Sclera clear and anicteric. No facial asymmetry. Chest: Lungs are clear to auscultation bilaterally. No wheezes or crackles. CV: Heart was regular rate and rhythm. S1-S2. No murmurs, gallops, or rubs. Abd: Abdomen was soft. Slight hypogastric tenderness. Nondistended. Positive bowel sounds. Ext: No clubbing, cyanosis, or edema. DP pulses bilaterally. Neuro: Patient is alert and oriented x2 (person, place). Speech is clear. DS: Data Data Completed and Pending Labs on day of discharge: Labs from last 24 hours 11/21/24 05:33 WBC 10.0 RBC 4.20 Hgb 7.8 L Hct 27.8 L MCV 66.2 L MCH 18.6 L MCHC 28.1 L RDW 17.1 H Plt Count 314 MPV 11.4 H Sodium 134 L Potassium 4.7 Chloride 102 Carbon Dioxide 27 Anion Gap 5 BUN 11 Creatinine 0.95 Estim Creat Clear Calc 40 Estimated GFR 56 L Glucose 88 Calcium 9.6 Total Bilirubin 0.2 AST 29 ALT 14 Alkaline Phosphatase 65 Total Protein 6.0 L Albumin 3.1 L Discharge Plan Discharge Attending physician on discharge: Syed Hester Consulting providers: Rosario Suazo Discharging Clinician: Rosario Suazo Anticipated Discharge Date/Time: 11/21/24 10:17 Patient Disposition: [place] Nursing Home/As[facility] Living Activity: as tolerated Diet: as tolerated and heart healthy Discharge Instructions: Discharge disposition: Patient admitted to the hospital following a syncopal event likely vasovagal Patient diagnosed with a urinary tract infection during admission Take all medications as prescribed even if feeling better Keflex twice a day, course to be completed on 11/25 attached is information on this medication Eat well balanced meals and stay hydrated Keep active to remain strong Avoid use of diapers or pads Good douglas Care every 2 hours Trend urine output during admission patient was noted to be anemic iron panel showing iron deficiency, patient started on iron supplementation attached is information on this medication during admission patient had low potassium levels obtain a blood draw in 3 days to reassess levels follow up with PCP as patient may require daily potassium supplementation Monitor blood pressures Take caution while standing, rising, or moving Change positions slowly taking a break between each position change If you standing feel dizzy sit back down and take a break Encouraged to continue with yearly vaccinations Return to the emergency department if he developed sudden shortness of breath, chest pain, nausea, vomiting, upset stomach or intractable diarrhea Return to the emergency department if you develop fever greater than 101.5 Follow-up with the primary care physician within 1-2 weeks Thank you for [facility] for your healthcare needs Patient Instructions: Cephalexin (By mouth), Iron Supplements (By mouth), Syncope (DC), Iron Deficiency Anemia (GEN), Urinary Tract Infection in Older Adults (DC) Patient Language: Divehi Stand Alone Forms: General Discharge Information Follow-up/Referrals: Santi,Abraham Hedrick, [Primary Care Provider] - 1 Week Discharge Medications: New polysaccharide iron complex 150 mg iron Capsule 150 mg PO DAILY@0800 Qty: 30 0RF cephalexin 500 mg Capsule 500 mg PO Q12HR Qty: 9 0RF Continued B12 Active 1,000 mcg PO DAILY atorvastatin 40 mg tablet 40 mg PO HS atenolol 50 mg tablet 50 mg PO BID acetaminophen 325 mg Capsule 650 mg PO Q6-8H PRN (Reason: pain) cholecalciferol (vitamin D3) 125 mcg PO DAILY dicyclomine 20 mg PO TID Lasix 40 mg PO EVERY OTHER DAY hydralazine 25 mg PO TID hydroxyzine HCl 25 mg PO DAILY loperamide 2 mg PO DAILY PRN (Reason: ibs) magnesium citrate 296 ml PO DAILY PRN (Reason: Constipation) Mylanta Gas Maximum Strength 30 ml PO Q4-8H PRN (Reason: Abdominal Discomfort) mirtazapine 7.5 mg PO DAILY omeprazole 40 mg PO DAILY ondansetron 4 mg PO Q6H PRN (Reason: nausea and vomiting) oxybutynin chloride 5 mg PO BID sucralfate 1 g PO QID tramadol 50 mg PO Q12H PRN (Reason: pain) hydrocodone-acetaminophen 5-325 mg tablet 1 tablet PO Q6H PRN (Reason: pain) Qty: 10 0RF bisacodyl 10 mg suppository 10 mg RECTAL DAILY PRN (Reason: constipation) cetirizine [24Hour Allergy] 10 mg tablet 10 mg PO HS clobetasol 0.05 % ointment 1 applic topical DAILY Rx Instructions: APPLY TO ABD FOLDS Other Ambulatory Orders: Basic Metabolic Panel (Routine) Timeframe: 3 Days Location: Determined by Patient Ordered By: Rosario Suazo Date of admission: 11/19/24 13:54 Primary Care Provider: SantiAbraham Admitting Provider: Michael Boswell Attending physician on admission: Michael Boswell Condition: Stable Hospitalist MIPS Heart Failure (Exclusion) Patient has history of Heart Transplant or Left Ventricular Assistive Device?: No IF YES, STOP HERE Heart Failure (Qualifier) Patient has current or prior documentation of LVEF less than or equal to 40%, or mod/servere depressed LVSF?: No IF NO, STOP HERE
== END 2024-11-21 13:00 | DRG 690 ==
LOC: ANHED 16:35 → ANH2MED 17:13
PROVIDERS: Internal Medicine; Nurse Practitioner; Admitting Provider Internal Medicine; Emergency Provider Emergency Medicine; PCP Internal Medicine; Visit Provider Student in an Organized Health Care Education/Training Program
DX: N39.0 Urinary tract infection, site not specified (principal); R55 Syncope and collapse; I12.9 Hypertensive chronic kidney disease with stage 1 through stage 4 chronic kidney disease, or unspecified chronic kidney disease; N18.30 Chronic kidney disease, stage 3 unspecified; E86.0 Dehydration; E87.6 Hypokalemia; E78.5 Hyperlipidemia, unspecified; E53.8 Deficiency of other specified B group vitamins; D50.9 Iron deficiency anemia, unspecified; K21.9 Gastro-esophageal reflux disease without esophagitis; K58.9 Irritable bowel syndrome, unspecified; B96.20 Unspecified Escherichia coli [E. coli] as the cause of diseases classified elsewhere; F03.90 Unspecified dementia, unspecified severity, without behavioral disturbance, psychotic disturbance, mood disturbance, and anxiety; I25.2 Old myocardial infarction; Z85.42 Personal history of malignant neoplasm of other parts of uterus; Z95.5 Presence of coronary angioplasty implant and graft
CPT/HCPCS: 36415; 80048; 80053; 81001; 82728; 83540; 83550; 83735; 84484; 85025; 85027; 85610; 85730; 87086; 87186; 93005; 96361; 96365; 96366; 96367; 96368; 99285; A9270; C8929; G0378; J0696; J3475; J3480; J7030; Q9957

== ENCOUNTER 2024-12-17 13:53 | Inpatient (IN) | payer MEDICARE, MEDICAID, SELFPAY ==
--- OUTSIDE RECORDS SUMMARY | 2024-12-17 13:57 | XMS_ITS | Continuity of Care Document ---
Author Organization [facility] Address [address] [place] [address] [address] [place] [address] Phone Care Team Providers Care Table Maker Name Role Phone Carmen Block Unavailable Unavailable Procedures Procedure Date Office/outpatient Visit, [facility] Advance Directives Directive Yes / No Effective Date File Name No Information Encounters Encounter Description Practice Location Reason(s) For Visit Diagnoses Date Provider Providers Copied on Encounter Office/outpat ient Visit, [facility], [address] [place] [address] [address], [place], [place], [id number], tel:[phone] SEC [facility] No Information Jul-0 1-200 7 Mckayla Morales. [address] [facility] , [address], [place], [address], [place]. tel:[phone] Family History Family Member Type Diagnosis Age At Onset No Information Payers Payer name Insurance type Covered democrat ID Authoriza tion(s) No Information Social History Type Description Quantity Date Captured Comments Sex Female Smoking Status No Information Chief Complaint And Reason For Visit No Information Reason For Referral Reason For Referral No Information History Of Present Illness Encounter Date Complaint History Of Prese nt Illness No Information Functional Status Date Functional Assessmen t No Information Instructions Date Instruction Additional Infor mation No Information Assessments Type Assessment Date No Information Patient Care Teams Name Effective Dates (start - stop) Status Members No Information
--- OUTSIDE RECORDS SUMMARY | 2024-12-17 13:57 | XMS_ITS | Patient Health Record ---
Author Organization [facility] Address [address] [place] [address] Care Team Providers Care Pet Stylist Name Role Phone Lindy Olmedo Primary Care Provider Allergies No Known Allergies Reason For Referral No Information Medications Medication SIG (Take, Route, Frequency, Duration) Notes Start Date End Date Status Citalopram Hydrobromide 20 MG 1 tablet Orally at night; Duration: 30 days Active Protonix 40 MG 1 tablet Orally twic e a day Active OLANZapine 5 MG 1 tablet bedtime Ora lly Once a day; Duration: 30 days Active Atenolol 50 MG 1 tablet Orally twic e a day Active Lipitor 40 MG 1 tablet Orally Once a day; Duration: 30 day(s) Active hydrALAZINE HCl 25 MG 1 tablet with food Orally Three times a day; Duration: 30 day(s) Active Aricept 10 MG 1 tablet at bedtime Orally Once a day; Duration: 30 day(s) Active Magnesium Oxide -Mg Supplement 400 MG 1 capsule as needed Orally twice a day Active Zetia 10 MG 1 tablet Orally Once a day; Duration: 30 day(s) Active Problems Problem Type SNOMED Code ICD Code Onset Dates Problem Status W/U Status Risk Notes Problem Psychosis (F29) Active confirmed Problem Dementia (48173808) Dementia (F03.90) Active confirmed Plan Of Treatment No Information Insurance Providers Payer Name Payer Address Payer Phone Subscriber Number Group Number Insured Name Patient Relationship to Insured Coverage Start Date Coverage End Date [employer] A[employer] Medicare [address] [address] [place] [address] [id number] Susana Napoles Self - patient is the insured 8 MEDICAID [address] [place] [address] [id number] Susana Napoles Self - patient is the insured 8 MEDICAID [address] [place] [address] [id number] Susana Napoles Self - patient is the insured 1 1 MED[employer] [address] [place] [address] [id number] Susana Napoles Self - patient is the insured 2 2 [facility] Medicare Assure [address] [address] [place] [address] [id number] Susana Napoles Self - patient is the insured 1 Medical (General) History Medical History History ICD Code High Blood Pressure Hyperlipidemia Surgical History Surgery Date(Month/Year)
--- OUTSIDE RECORDS SUMMARY | 2024-12-17 13:57 | XMS_ITS | Clinical Summary ---
Author Organization [facility] Address [address] [place] [address] Care Team Providers Care Evaluation Analyst Name Role Phone Unavailable Primary Care Provider Unavailabl e Source Comments [facility],non-owned Affiliates and Associated Physician Practices is amultiple site organization consisting of ambulatory clinics and hospital sitesin [place], [place], [place] and [place]. This disclosure is being madepursuant to the Care Everywhere program and may not contain all information available regarding this patient. Last updated 18.[facility] Allergies Active Allergy Reactions Criticality Noted Date Comments Iodine 06/03/2012 Medications * Be aware that medications may not be up to date on this document. Alwaysverify current medications with the patient. simvastatin (ZOCOR) 40 MG tablet Take 40 mg by mouth at bedtime. Active atenolol (TENORMIN) 50 MG tablet Take 50 mg by mouth once daily. Active omeprazole (PRILOSEC) 40 MG capsule Take 40 mg by mouth 2 times daily before meals. Active ALPRAZolam (XANAX) 0.5 MG tablet Take 0.5 mg by mouth 3 times daily as needed. Active amLODIPine (NORVASC) 10 MG tablet Take 10 mg by mouth once daily. Active irbesartan (AVAPRO) 150 MG tablet Take 150 mg by mouth once daily. Active aspirin EC (ECOTRIN) 325 MG tablet Take 1 Tab by mouth once daily. 06/04/2012 Active prasugrel (EFFIENT) 10 MG tablet Take 1 Tab by mouth once daily. 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 Gender Identity Not on file Sexual Orientation Not on file Last Filed Vital Signs Vital Sign Reading Time Taken Comments Blood Pressure 152/56 06/04/2012 7:48 AM SATELLITE TELEVISION INSTALLER Pulse 69 06/04/2012 7:48 AM SATELLITE TELEVISION INSTALLER Temperature 36.6 C (97.8 F) 06/04/2012 7:21 AM SATELLITE TELEVISION INSTALLER Respiratory Rate 20 06/04/2012 7:21 AM SATELLITE TELEVISION INSTALLER Oxygen Saturation 100% 06/04/2012 7:21 AM SATELLITE TELEVISION INSTALLER Inhaled Oxygen Concentration - - Weight 142.5 kg (314 lb 3.2 oz) 013 12:14 AM SATELLITE TELEVISION INSTALLER Height 154.9 cm (5' 1) 06/03/2012 7:36 AM SATELLITE TELEVISION INSTALLER Body Mass Index 59.37 06/03/2012 7:36 AM SATELLITE TELEVISION INSTALLER Plan of Treatment Health Maintenance Due Date Last Done Comments BONE DENSITY TESTING 1940 DTAP/TDAP/TD VACCINES (1 - Tdap) 1959 PNEUMOCOCCAL VACCINE 50+ (1 of 1 - PCV) 1990 ZOSTER VACCINE (1 of 2) 1990 Respiratory Syncytial Virus (RSV) Vaccine Pt: or over 60 yrs (1 - 1-dose 75+ series) 2015 COVID-19 VACCINE ( - 2023-2 5 season) 2024 DEPRESSION SCREENING 05/28/2024 MEDICARE AWV CALENDAR YEAR 2024 INFLUENZA VACCINE (#1) 2025 HEPATITIS B VACCINE Aged Out No longe r eligible based on patient's age to complete this topic HIB VACCINE Aged Out No longer eligi ble based on patient's age to complete this topic HPV VACCINE Aged Out No longer eligi ble based on patient's age to complete this topic MENINGOCOCCAL (Group B) VACC INE SHARED DECISION-MAKING Aged Out No longer eligibl e based on patient's age to complete this topic MENINGOCOCCAL GROUPS A/C/Y/W VACCINE Aged Out No longer eligible b ased on patient's age to complete this topic Insurance * Guarantor: MASON NAPOLES Account Type Relation to Patient Date of Phone Billing Address Personal/Family [address] [place] [address], [place] [address] [facility] MANAGED MEDICARE ADV [facility] * Guarantor: MASON NAPOLES Account Type Relation to Patient Date of Phone Billing Address Personal/Family [address] [place] [phone] * Guarantor: MASON NAPOLES Account Type Relation to Patient Date of Phone Billing Address Personal/Family [address] [place] [phone] Advance Directives * FULL RESUSCITATION (Latest Code Status on File) Date Activated Date Inactivated Comments 06/03/2012 9:47 AM 06/04/2012 1:27 PM
--- OUTSIDE RECORDS SUMMARY | 2024-12-17 13:57 | XMS_ITS | Clinical Summary ---
Author Organization [facility] Address [address] [place] [address] Phone Care Team Providers Care Supervisor [place] Name Role Phone Krishan Balderrama MD Primary Care Provider [phone] Allergies Active Allergy Reactions Criticality Noted Date Comments Iodine Unknown 04/06/2016 Medications omeprazole (PRILOSEC) 40 MG CAPSULE DELAYED RELEASE Take 40 mg by mouth 2 times daily. Active atenolol (TENORMIN) 50 MG Tablet Take 50 mg by mouth 2 times daily. Active pravastatin (PRAVACHOL) 20 MG Tablet Take 20 mg by mouth daily. Active hydroCHLOROthiaz justo 50 MG Tablet Take 50 mg by mouth daily. Active Aspirin 81 MG Tablet Take 81 mg by mouth daily. Active sucralfate (CARAFATE) 1 GM Tablet Take 1 g by mouth 4 times daily. Active Family History Medical History Relation Name Comments Heart Disease Brother Heart Disease Mother Relation Name Status Comments Brother Mother Social History Tobacco Use Types Packs/Day Years Used Date Smoking Tobacco: Never Alcohol Use Standard Drinks/Week Comments No 0 (1 standard drink = 0.6 oz pur e alcohol) Comments Unknown Sex and Gender Information Value Date Recorded Sex Assigned at Not on file Legal Sex Female 10:04 AM CDT Gender Identity Not on file Sexual Orientation Not on file Plan of Treatment Health Maintenance Due Date Last Done Comments Hepatitis C Virus (HCV) Screening 1940 TdaP Immunization 1940 Pneumococcal Immunization (5 0+ years) (1 of 1 - PCV) 1990 Zoster Immunization (1 of 2) 1990 Respiratory Syncytial Virus (RSV) Immunization (Adult) (1 - 1-dose 75+ series) 2015 SARS-COV-2 Immunization (2023- season) 2024 Influenza Immunization (#1) 2025 Hepatitis B Immunization Aged Out No longer eligible based on patient's age to complete this topic Human Papillomavirus (HPV) Immunization Aged Out No longer eligible b ased on patient's age to complete this topic Meningococcal Immunization (ACWY) Aged Out No longer eligible based on patient's age to complete this topic Rotavirus Immunization Aged Out No lo nger eligible based on patient's age to complete this topic Care Teams Supervisor Wash House Relationship Specialty Start Date End Date Krishan Balderrama MD PCP - General Internal Medicine 03/22/16
[2024-12-17 14:00] VITALS: BP 125/64; PULSE 79; TEMP 36.9; O2SAT 97
[2024-12-17 15:43] VITALS: BP 140/79; PULSE 71; RESP 16; TEMP 37; O2SAT 98
[2024-12-17 15:45] VITALS: BP 140/79; PULSE 71; RESP 17; TEMP 37; O2SAT 97
--- NOTE | 2024-12-17 15:49 | ED.RECABL ---
HPI - Recheck/Abnormal Lab/Rx General Chief Complaint: Recheck/Abnormal Lab/Rx <Issac Hansen III, DO - Last Filed: 12/17/24 22:26> Stated Complaint: hypokalemia? <Issac Hansen III, DO - Last Filed: 12/17/24 22:26> Time Seen by Provider: 12/17/24 15:42 <Issac Hansen III, DO - Last Filed: 12/17/24 22:26> History of Present Illness HPI narrative: Pt here from [facility] for concerns about hypokalemia. Pt has not been vomiting. Pt does feel weak. Pt denies CP or SOB. <Issac Hansen III, DO - Last Filed: 12/17/24 22:26> Related Data Home Medications: Home Medications ?Medication ?Instructions ?Recorded ?Confirmed ?Last Taken ?Type B12 Active 1,000 mcg PO DAILY 12/22/23 11/17/24 Unknown History Lasix 40 mg PO EVERY OTHER DAY 12/22/23 11/17/24 Unknown History Mylanta Gas Maximum Strength 30 ml PO Q4-8H PRN Abdominal 12/22/23 11/18/24 Unknown History Discomfort acetaminophen 325 mg capsule 650 mg PO Q6-8H PRN pain 12/22/23 11/17/24 Unknown History atenolol 50 mg tablet 50 mg PO BID hypertension 12/22/23 11/17/24 Unknown History atorvastatin 40 mg tablet 40 mg PO HS 12/22/23 11/17/24 Unknown History cholecalciferol (vitamin D3) 125 mcg PO DAILY 12/22/23 11/17/24 Unknown History dicyclomine 20 mg PO TID 12/22/23 11/17/24 Unknown History hydralazine 25 mg PO TID 12/22/23 11/17/24 Unknown History hydroxyzine HCl 25 mg PO DAILY 12/22/23 11/17/24 Unknown History loperamide 2 mg PO DAILY PRN ibs 12/22/23 11/18/24 Unknown History magnesium citrate 296 ml PO DAILY PRN Constipation 12/22/23 11/17/24 Unknown History mirtazapine 7.5 mg PO DAILY 12/22/23 11/17/24 Unknown History omeprazole 40 mg PO DAILY 12/22/23 11/17/24 Unknown History ondansetron 4 mg PO Q6H PRN nausea and vomiting 12/22/23 11/17/24 Unknown History oxybutynin chloride 5 mg PO BID 12/22/23 11/17/24 Unknown History sucralfate 1 g PO QID 12/22/23 11/17/24 Unknown History tramadol 50 mg PO Q12H PRN pain 12/22/23 11/18/24 Unknown History bisacodyl 10 mg rectal suppository 10 mg RECTAL DAILY PRN constipation 11/17/24 11/17/24 Unknown History cetirizine 10 mg tablet (24Hour 10 mg PO HS 11/17/24 11/17/24 Unknown History Allergy) clobetasol 0.05 % topical ointment 1 applic topical DAILY 11/17/24 11/17/24 Unknown History <Issac Hansen III, DO - Last Filed: 12/17/24 22:26> Allergies/Adverse Reactions: Allergies Allergy/AdvReac Type Severity Reaction Status Date / Time iodine Allergy Severe HIVES-SWELL Verified 01/08/24 08:31 ING <Issac Hansen III, DO - Last Filed: 12/17/24 22:26> Review of Systems Review of Systems: All systems reviewed & are unremarkable except as noted in HPI and below <Issac Hansen III, DO - Last Filed: 12/17/24 22:26> [facility] Past Medical History Medical History: Medical History (Updated 12/18/24 @ 01:03 by Zuri Fagan MD) H pylori ulcer Myocardial infarction (2008) B12 deficiency Allergic rhinitis Hypochromic microcytic anemia CKD (chronic kidney disease) stage 3, GFR 30-59 ml/min History of dementia History of hypertension History of hyperlipidemia <Issac Hansen III, DO - Last Filed: 12/17/24 22:26> Surgical History Surgical History: Surgical History (Updated 11/18/24 @ 06:45 by Kamilah Mcmanus DO) History of total abdominal hysterectomy and bilateral salpingo-oophorectomy Due to uterine cancer when she was in her 30s Hx of cholecystectomy History of heart artery stent (~2012) X3 [address] Jovita Smith heart and vascular History of tonsillectomy and adenoidectomy Status post cataract extraction of both eyes with insertion of intraocular lens History of laparoscopic appendectomy 12/22/23 <Issac Chidi Hansen III, DO - Last Filed: 12/17/24 22:26> Family History Family History: Family History (Updated 11/18/24 @ 06:46 by Kamilah Mcmanus DO) Other Heart disease <Issac Chidi Hansen III, DO - Last Filed: 12/17/24 22:26> Social History Social History: Social History (Updated 11/18/24 @ 06:49 by Kamilah Mcmanus DO) Social History: Patient is . She raised 3 children. Code status: Full code (per POLST form from the assisted) Surrogate decision maker: Ravi () Smoking status: Never smoker Alcohol intake: never Substance use: never Do You Feel Safe in your Home?: Yes Lack of Transportation: No Lack of Food: Never True Current Housing: I Have Housing Concerned About Future Housing: No Difficulty Paying Gas/Electric Bills: No Difficulty Paying for Meds: No Currently Unemployed: No Education: Don't Know Difficulty w/ Childcare or Family Care: No Living arrangements: assisted Additional living arrangements comments: [facility] Spiritual care concerns: No <Issac Chidi Hansen III, DO - Last Filed: 12/17/24 22:26> Exam Const: General: healthy appearing and no acute distress <Issac Chidi Hansen III, DO - Last Filed: 12/17/24 22:26> Nutritional Appearance: well nourished <Issac Chidi Hansen III, DO - Last Filed: 12/17/24 22:26> Orientation/consciousness: patient oriented x3 <Issac Chidi Hansen III, DO - Last Filed: 12/17/24 22:26> Limitations: no limitations <Issac Chidi Hansen III, DO - Last Filed: 12/17/24 22:26> HENMT: Head: normal to inspection <Issac Chidi Hansen III, DO - Last Filed: 12/17/24 22:26> Mouth: Yes Normal oral and palatal mucosa present and Yes moist mucous membranes <Issac Chidi Hansen III, DO - Last Filed: 12/17/24 22:26> Eyes: Pupils: Equal, round and reactive pupils present <Issac Chidi Hansen III, DO - Last Filed: 12/17/24 22:26> EOM: EOMs intact bilaterally <Issac Chidi Hansen III, DO - Last Filed: 12/17/24 22:26> Resp: Effort & Inspection: normal respiratory effort <Issac Chidi Hansen III, DO - Last Filed: 12/17/24 22:26> Auscultation: clear to auscultation bilaterally <Issac Chidi Hansen III, DO - Last Filed: 12/17/24 22:26> Cardio: Rate: regular rate <Issac Chidi Hansen III, DO - Last Filed: 12/17/24 22:26> Rhythm: regular rhythm <Issac Chidi Hansen III, DO - Last Filed: 12/17/24 22:26> GI: GI Palp: Yes Soft to palpation and No Tenderness to palpation present (GI) <Issac Chidi Hansen III, DO - Last Filed: 12/17/24 22:26> Auscultation: normal bowel sounds <Issac Chidi Hansen III, DO - Last Filed: 12/17/24 22:26> Skin: General skin exam: normal color <Issac Chidi Hansen III, DO - Last Filed: 12/17/24 22:26> Wounds: no wounds <Issac Chidi Hansen III, DO - Last Filed: 12/17/24 22:26> Neuro: General: patient oriented x3, moves all extremities and no focal motor deficits <Issac Chidi Hansen III, DO - Last Filed: 12/17/24 22:26> Cranial nerves: Yes Nystagmus not present <Issac Chidi Hansen III, DO - Last Filed: 12/17/24 22:26> Speech: normal speech <Issac Chidi Hansen III, DO - Last Filed: 12/17/24 22:26> Extrem: General: normal to inspection and no clubbing, cyanosis or edema <Issac Chidi Hansen III, DO - Last Filed: 12/17/24 22:26> Psych: Mental Status: mental status grossly normal <Issac Chidi Hansen III, DO - Last Filed: 12/17/24 22:26> Affect: normal affect <Issac Chidi Hansen III, DO - Last Filed: 12/17/24 22:26> Attitude: cooperative <Issac Chidi Hansen III, DO - Last Filed: 12/17/24 22:26> Course Course Emergency Course: Patient signed out to me pending repeat BMP. Reportedly patient was a hard IV stick and for this reason because she was able to tolerate fluids orally, p.o. potassium as well as fluids were ordered. However, repeat BMP is essentially unchanged. Potassium remains low. Although magnesium as normal, it is low normal and thus will concomitantly replete this as well. Informed the patient and updated her via phone on the need for admission. Verify understanding. Discussed with it consulting director hospitalist Dr Mcmanus who requests that maintenance fluids be at 75mL/hr. Will be telemetry for the hypokalemia. <Zuri Fagan MD - Last Filed: 12/18/24 01:05> Vital Signs Vital signs: Vital Signs Temperature 98.5 F 12/17/24 14:00 Pulse Rate 79 12/17/24 14:00 Blood Pressure 125/64 12/17/24 14:00 Pulse Oximetry 97 12/17/24 14:00 Temperature 98.2 F 12/18/24 00:31 Pulse Rate 61 12/18/24 00:31 Respiratory Rate 18 12/18/24 00:31 Blood Pressure 125/53 L 12/18/24 00:31 Pulse Oximetry 96 12/18/24 00:31 Oxygen Delivery Room Air 12/17/24 15:43 <Issac Rivasver III, DO - Last Filed: 12/17/24 22:26> Vital Signs Temperature 98.5 F 12/17/24 14:00 Pulse Rate 79 12/17/24 14:00 Blood Pressure 125/64 12/17/24 14:00 Pulse Oximetry 97 12/17/24 14:00 Temperature 98.2 F 12/18/24 00:31 Pulse Rate 61 12/18/24 00:31 Respiratory Rate 18 12/18/24 00:31 Blood Pressure 125/53 L 12/18/24 00:31 Pulse Oximetry 96 12/18/24 00:31 Oxygen Delivery Room Air 12/17/24 15:43 <Zuri Fagan MD - Last Filed: 12/18/24 01:05> MDM - Recheck/Abnormal Lab/Rx MDM Narrative Medical decision making narrative: Pt here with [facility] and concerns for hyokalemia. will get some labs and check lytes and cbc. Pt has no infectious concerns. k is 2.8. pt was very difficult stick and family is comfortable with her getting her potassium by mouth rather than trying to get IV. will replace k orally and recheck lab.turned over to dr fagan awaiting repeat potassium. <Issac Hansen III, DO - Last Filed: 12/17/24 22:26> Lab Data Result diagrams: 12/18/24 00:23 12/17/24 22:32 <Issac Hansen III, DO - Last Filed: 12/17/24 22:26> Labs: Lab Results 12/17/24 12/17/24 12/17/24 Range/Units 16:19 16:40 22:32 WBC Cancelled RBC Cancelled Hgb Cancelled Hct Cancelled MCV Cancelled MCH Cancelled MCHC Cancelled RDW Cancelled Plt Count Cancelled MPV Cancelled Immature Gran % (Auto) Cancelled Neut % (Auto) Cancelled Lymph % (Auto) Cancelled [place] % (Auto) Cancelled Eos % (Auto) Cancelled Baso % (Auto) Cancelled Lymph # (Auto) Cancelled [place] # (Auto) Cancelled Eos # (Auto) Cancelled Baso # (Auto) Cancelled Abs Immat Gran (auto) Cancelled Absolute Neuts (auto) Cancelled Absolute Nucleated RBC Cancelled Band Neutrophils % Nucleated RBC % Cancelled Platelet Estimate % Immature Plt Fraction Cancelled Schistocytes Sodium 125 L 126 L (137-145) mmol/L Potassium 2.8 L* 3.0 L (3.4-5.0) mmol/L Chloride 86 L 88 L (98-107) mmol/L Carbon Dioxide 31 H 31 H (22-30) mmol/L Anion Gap 8 7 (4-12) mmol/L BUN 13 13 (7-17) mg/dL Creatinine 1.43 H 1.35 H (0.7-1.0) mg/dL Estim Creat Clear Calc 28 30 ml/min Estimated GFR 35 L 37 L (59 - ) Glucose 131 H 93 (65-110) mg/dL Calcium 8.6 8.2 L (8.4-10.2) mg/dL Magnesium 1.6 (1.6-2.3) mg/dL Total Bilirubin 0.1 L (0.2-1.3) mg/dL AST 28 (14-36) U/L ALT 16 (6-35) U/L Alkaline Phosphatase 74 (38-126) U/L Total Protein 6.3 (6.3-8.2) g/dL Albumin 3.5 (3.5-5.1) g/dL Urine Color Yellow (Yellow) Urine Appearance Clear (Clear) Urine pH 7.0 (5.0-9.0) Ur Specific Raymond 1.005 (1.001-1.035) Urine Protein Negative (Negative) mg/dL Urine Glucose (UA) Negative (Negative) mg/dL Urine Ketones Negative (Negative) mg/dL Ur Blood (Man) Negative (Negative) Urine Nitrate Negative (Negative) Urine Bilirubin Negative (Negative) Urine Urobilinogen 0.2 (<2.0) mg/dL Add Ur Microanalysis Reviewed Leukocyte Esterase Rfl 1+ H (Negative) VAL/UL Urine RBC 0-2 (0-2) /hpf Urine WBC 0-5 (0-3) /hpf Ur Squamous Epith Cells None seen (Few) /hpf Urine Bacteria None seen /hpf Urine Casts 3-5 07/24/25 Range/Units 00:23 WBC 9.0 RBC 4.35 Hgb 8.4 L Hct 28.2 L MCV 64.8 L MCH 19.3 L MCHC 29.8 L RDW 20.2 H Plt Count 289 MPV 10.9 H Immature Gran % (Auto) 0.4 Neut % (Auto) 42.1 L Lymph % (Auto) 44.5 H Klamath % (Auto) 10.7 H Eos % (Auto) 1.7 Baso % (Auto) 0.6 Lymph # (Auto) 4.00 H [place] # (Auto) 1.0 H Eos # (Auto) 0.2 Baso # (Auto) 0.1 Abs Immat Gran (auto) 0.04 H Absolute Neuts (auto) 3.8 Absolute Nucleated RBC 0.000 Band Neutrophils % Pending Nucleated RBC % 0.0 Platelet Estimate Pending % Immature Plt Fraction Schistocytes Pending Sodium (137-145) mmol/L Potassium (3.4-5.0) mmol/L Chloride (98-107) mmol/L Carbon Dioxide (22-30) mmol/L Anion Gap (4-12) mmol/L BUN (7-17) mg/dL Creatinine (0.7-1.0) mg/dL Estim Creat Clear Calc ml/min Estimated GFR (59 - ) Glucose (65-110) mg/dL Calcium (8.4-10.2) mg/dL Magnesium (1.6-2.3) mg/dL Total Bilirubin (0.2-1.3) mg/dL AST (14-36) U/L ALT (6-35) U/L Alkaline Phosphatase (38-126) U/L Total Protein (6.3-8.2) g/dL Albumin (3.5-5.1) g/dL Urine Color (Yellow) Urine Appearance (Clear) Urine pH (5.0-9.0) Ur Specific Raymond (1.001-1.035) Urine Protein (Negative) mg/dL Urine Glucose (UA) (Negative) mg/dL Urine Ketones (Negative) mg/dL Ur Blood (Man) (Negative) Urine Nitrate (Negative) Urine Bilirubin (Negative) Urine Urobilinogen (<2.0) mg/dL Add Ur Microanalysis Leukocyte Esterase Rfl (Negative) VAL/UL Urine RBC (0-2) /hpf Urine WBC (0-3) /hpf Ur Squamous Epith Cells (Few) /hpf Urine Bacteria /hpf Urine Casts <Issac Hansen III, DO - Last Filed: 12/17/24 22:26> Lab Results 12/17/24 12/17/24 12/17/24 Range/Units 16:19 16:40 22:32 WBC Cancelled RBC Cancelled Hgb Cancelled Hct Cancelled MCV Cancelled MCH Cancelled MCHC Cancelled RDW Cancelled Plt Count Cancelled MPV Cancelled Immature Gran % (Auto) Cancelled Neut % (Auto) Cancelled Lymph % (Auto) Cancelled [place] % (Auto) Cancelled Eos % (Auto) Cancelled Baso % (Auto) Cancelled Lymph # (Auto) Cancelled [place] # (Auto) Cancelled Eos # (Auto) Cancelled Baso # (Auto) Cancelled Abs Immat Gran (auto) Cancelled Absolute Neuts (auto) Cancelled Absolute Nucleated RBC Cancelled Band Neutrophils % Nucleated RBC % Cancelled Platelet Estimate % Immature Plt Fraction Cancelled Schistocytes Sodium 125 L 126 L (137-145) mmol/L Potassium 2.8 L* 3.0 L (3.4-5.0) mmol/L Chloride 86 L 88 L (98-107) mmol/L Carbon Dioxide 31 H 31 H (22-30) mmol/L Anion Gap 8 7 (4-12) mmol/L BUN 13 13 (7-17) mg/dL Creatinine 1.43 H 1.35 H (0.7-1.0) mg/dL Estim Creat Clear Calc 28 30 ml/min Estimated GFR 35 L 37 L (59 - ) Glucose 131 H 93 (65-110) mg/dL Calcium 8.6 8.2 L (8.4-10.2) mg/dL Magnesium 1.6 (1.6-2.3) mg/dL Total Bilirubin 0.1 L (0.2-1.3) mg/dL AST 28 (14-36) U/L ALT 16 (6-35) U/L Alkaline Phosphatase 74 (38-126) U/L Total Protein 6.3 (6.3-8.2) g/dL Albumin 3.5 (3.5-5.1) g/dL Urine Color Yellow (Yellow) Urine Appearance Clear (Clear) Urine pH 7.0 (5.0-9.0) Ur Specific Raymond 1.005 (1.001-1.035) Urine Protein Negative (Negative) mg/dL Urine Glucose (UA) Negative (Negative) mg/dL Urine Ketones Negative (Negative) mg/dL Ur Blood (Man) Negative (Negative) Urine Nitrate Negative (Negative) Urine Bilirubin Negative (Negative) Urine Urobilinogen 0.2 (<2.0) mg/dL Add Ur Microanalysis Reviewed Leukocyte Esterase Rfl 1+ H (Negative) VAL/UL Urine RBC 0-2 (0-2) /hpf Urine WBC 0-5 (0-3) /hpf Ur Squamous Epith Cells None seen (Few) /hpf Urine Bacteria None seen /hpf Urine Casts 3-5 07/24/25 Range/Units 00:23 WBC 9.0 RBC 4.35 Hgb 8.4 L Hct 28.2 L MCV 64.8 L MCH 19.3 L MCHC 29.8 L RDW 20.2 H Plt Count 289 MPV 10.9 H Immature Gran % (Auto) 0.4 Neut % (Auto) 42.1 L Lymph % (Auto) 44.5 H [place] % (Auto) 10.7 H Eos % (Auto) 1.7 Baso % (Auto) 0.6 Lymph # (Auto) 4.00 H [place] # (Auto) 1.0 H Eos # (Auto) 0.2 Baso # (Auto) 0.1 Abs Immat Gran (auto) 0.04 H Absolute Neuts (auto) 3.8 Absolute Nucleated RBC 0.000 Band Neutrophils % Pending Nucleated RBC % 0.0 Platelet Estimate Pending % Immature Plt Fraction Schistocytes Pending Sodium (137-145) mmol/L Potassium (3.4-5.0) mmol/L Chloride (98-107) mmol/L Carbon Dioxide (22-30) mmol/L Anion Gap (4-12) mmol/L BUN (7-17) mg/dL Creatinine (0.7-1.0) mg/dL Estim Creat Clear Calc ml/min Estimated GFR (59 - ) Glucose (65-110) mg/dL Calcium (8.4-10.2) mg/dL Magnesium (1.6-2.3) mg/dL Total Bilirubin (0.2-1.3) mg/dL AST (14-36) U/L ALT (6-35) U/L Alkaline Phosphatase (38-126) U/L Total Protein (6.3-8.2) g/dL Albumin (3.5-5.1) g/dL Urine Color (Yellow) Urine Appearance (Clear) Urine pH (5.0-9.0) Ur Specific Raymond (1.001-1.035) Urine Protein (Negative) mg/dL Urine Glucose (UA) (Negative) mg/dL Urine Ketones (Negative) mg/dL Ur Blood (Man) (Negative) Urine Nitrate (Negative) Urine Bilirubin (Negative) Urine Urobilinogen (<2.0) mg/dL Add Ur Microanalysis Leukocyte Esterase Rfl (Negative) VAL/UL Urine RBC (0-2) /hpf Urine WBC (0-3) /hpf Ur Squamous Epith Cells (Few) /hpf Urine Bacteria /hpf Urine Casts <Zuri Fagan MD - Last Filed: 12/18/24 01:05> Discharge Plan Discharge Clinical Impression: Acute hypokalemia, Microcytic anemia, ALEC (acute kidney injury) <Issac Hnasen III, DO - Last Filed: 12/17/24 22:26> Patient Disposition: Still a Patient <Issac Hansen III DO - Last Filed: 12/17/24 22:26> Condition: Stable <Issac Chidi Jade MARTEL, DO - Last Filed: 12/17/24 22:26> Instructions: Antibiotic Form, Hypokalemia (ED) <Issac Hansen III, DO - Last Filed: 12/17/24 22:26> Patient Language: Pakistani <Issac Chidi Jade MARTEL, DO - Last Filed: 12/17/24 22:26> Prescriptions: No Action B12 Active 1,000 mcg PO DAILY atorvastatin 40 mg tablet 40 mg PO HS atenolol 50 mg tablet 50 mg PO BID acetaminophen 325 mg Capsule 650 mg PO Q6-8H PRN (Reason: pain) cholecalciferol (vitamin D3) 125 mcg PO DAILY dicyclomine 20 mg PO TID Lasix 40 mg PO EVERY OTHER DAY hydralazine 25 mg PO TID hydroxyzine HCl 25 mg PO DAILY loperamide 2 mg PO DAILY PRN (Reason: ibs) magnesium citrate 296 ml PO DAILY PRN (Reason: Constipation) Mylanta Gas Maximum Strength 30 ml PO Q4-8H PRN (Reason: Abdominal Discomfort) mirtazapine 7.5 mg PO DAILY omeprazole 40 mg PO DAILY ondansetron 4 mg PO Q6H PRN (Reason: nausea and vomiting) oxybutynin chloride 5 mg PO BID sucralfate 1 g PO QID tramadol 50 mg PO Q12H PRN (Reason: pain) hydrocodone-acetaminophen 5-325 mg tablet 1 tablet PO Q6H PRN (Reason: pain) Qty: 10 0RF bisacodyl 10 mg suppository 10 mg RECTAL DAILY PRN (Reason: constipation) cetirizine [24Hour Allergy] 10 mg tablet 10 mg PO HS clobetasol 0.05 % ointment 1 applic topical DAILY Rx Instructions: APPLY TO ABD FOLDS polysaccharide iron complex 150 mg iron Capsule 150 mg PO DAILY@0800 Qty: 30 0RF cephalexin 500 mg Capsule 500 mg PO Q12HR Qty: 9 0RF <Issac Hansen III, DO - Last Filed: 12/17/24 22:26> Follow-up/Referrals: Fan,Abraham Hedrick DO [Primary Care Provider] - <Issac Hansen III, DO - Last Filed: 12/17/24 22:26>
--- OUTSIDE RECORDS SUMMARY | 2024-12-17 15:50 | XMS_ITS | Clinical Summary ---
Author Organization [facility] Address [address] [facility] [place] [address] Phone Care Team Providers Care Public Transit Trolley Driver Name Role Phone Krishan Balderrama MD Primary Care Provider [phone] Allergies Active Allergy Reactions Criticality Noted Date [...] age to complete this topic Care Teams Public Transit Trolley Driver Relationship Specialty Start Date End Date Krishan Balderrama MD PCP - General Internal Medicine 03/22/16
--- OUTSIDE RECORDS SUMMARY | 2024-12-17 15:50 | XMS_ITS | Clinical Summary ---
Author Organization [facility] Address [address] [place] [address] Care Team Providers Care Raw Mill Operator Name Role Phone Unavailable Primary Care Provider Unavailabl e Source Comments [facility],non-owned Affiliates and Associated Physician Practices is amultiple site organization consisting of ambulatory clinics and hospital sitesin [place], [place], [place] and [place]. This disclosure is being madepursuant to the Care Everywhere program and may not contain all information available regarding this patient. Last updated 18.[facility] Allergies Active Allergy Reactions Criticality Noted Date [...] on file Legal Sex Female 7:05 AM GED TUTOR Gender Identity Not on file Sexual Orientation Not on file Last Filed Vital Signs Vital Sign Reading Time Taken Comments Blood Pressure 152/56 06/04/2012 7:48 AM GED TUTOR Pulse 69 06/04/2012 7:48 AM GED TUTOR Temperature 36.6 C (97.8 F) 06/04/2012 7:21 AM GED TUTOR Respiratory Rate 20 06/04/2012 7:21 AM GED TUTOR Oxygen Saturation 100% 06/04/2012 7:21 AM GED TUTOR Inhaled Oxygen Concentration - - Weight 142.5 kg (314 lb 3.2 oz) 013 12:14 AM GED TUTOR Height 154.9 cm (5' 1) 06/03/2012 7:36 AM GED TUTOR Body Mass Index 59.37 06/03/2012 7:36 AM GED TUTOR Plan of Treatment Health Maintenance Due Date [...] Patient Date of Phone Billing Address Personal/Family [address] [place] [address], [place] [address] [facility] MANAGED MEDICARE ADV [facility] * Guarantor: MASNO NAPOLES Account Type Relation to Patient Date of Phone Billing Address Personal/Family [address] [place] [id number] * Guarantor: MASON NAPOLES Account Type Relation to Patient Date of Phone Billing Address Personal/Family [address] [place] [id number] Advance Directives * FULL RESUSCITATION (Latest Code Status on File) Date Activated Date Inactivated Comments 06/03/2012 9:47 AM 06/04/2012 1:27 PM
--- OUTSIDE RECORDS SUMMARY | 2024-12-17 15:50 | XMS_ITS | Continuity of Care Document ---
Author Organization [facility] Address [address] [place] [address] [address] [place] [address] Phone Care Team Providers Care Tap Dancer Name Role Phone Carmen Block Unavailable Unavailable Procedures Procedure Date Office/outpatient Visit, [facility] Advance Directives Directive Yes / No Effective Date File Name No Information Encounters Encounter Description Practice Location Reason(s) For Visit Diagnoses Date Provider Providers Copied on Encounter Office/outpat ient Visit, [facility], [address] [place] [address] [address], [place], [place], [id number], tel:[phone] SEC [facility] No Information Jul-0 1-200 7 Mckayla Morales. [address] [facility] , [address], [place], [address], [place]. tel:[phone] Family History Family Member Type Diagnosis Age At Onset No Information Payers Payer name Insurance type Covered alliance party ID Authoriza tion(s) No Information Social History [...]
[2024-12-17 16:47] LABS: Add Urine Microscopic? YES; Appearance Urine Clear (Clear); Glucose Urine UA Negative (Negative); Leukocyte Esterase Ur 1+ LEU/UL (Negative); Need Manual Microscopic Reviewed; Nitrate Urine Negative (Negative); Specific Grav Ur 1.005 (1.001-1.035)
--- NOTE | 2024-12-17 16:50 | PC.NURSE ---
Went in to speak with pt's daughter due to Tomeka ERT woods laborer very upset and crying from the verbal abuse she received from the daughter while attempting to draw labs from the patient. Explained to her that she needs to please treat staff with respect. And daughter states she was firm with Tomeka and she didn't need to poke her mother when her mother is a very hard stick. Daughter then states that Maureen came in and acted like a hero an thought she would torture my mother with another needle stick I explained that the woods laborer and primary nurse needs to attempt before we can call phlebotomy and or ultrasound stick. Daughter accused me of delaying staff and hour or so before someone else attempts to get her blood. I explained it's my job to move patients through the ER and I am not nor ever will delay any care to patients in the ER. I spoke with Dr Hansen about the pt and it was decided to wait for her potassium level to come back before any other tests were completed. Dr Hansen went in the room to explain the plan of care.
--- NOTE | 2024-12-17 16:50 | PC.NURSE ---
This RN attempted lab draw and was able to get one tube, second tube needed was unsuccessful. Per Tomeka, certified emergency vehicle technician she was unsuccessful w/ blood draw twice. Pt daughter at bedside agitated and becoming verbally aggressive due to three attempgs. Notified daughter that charge nurse was made aware and will attempt u/s labs if available or IV access.
[2024-12-17 17:04] LABS: Alanine Aminotransferase 16 U/L (6-35); Albumin Level 3.5 g/dL (3.5-5.1); Alkaline Phosphatase 74 U/L (38-126); Anion Gap 8 mmol/L (4-12); Aspartate Amino Transferase 28 U/L (14-36); Bilirubin,Total 0.1 mg/dL (0.2-1.3); Blood Urea Nitrogen 13 mg/dL (7-17); Calcium 8.6 mg/dL (8.4-10.2); Carbon Dioxide 31 mmol/L (22-30); Chloride 86 mmol/L (98-107); Estimated CRCL calculation 28 ml/min; Estimated Glomerular Filt Rate 35; Glucose 131 mg/dL (65-110); Magnesium 1.6 mg/dL (1.6-2.3); Potassium 2.8 mmol/L (3.4-5.0); Sodium 125 mmol/L (137-145); Total Protein 6.3 g/dL (6.3-8.2)
[2024-12-17 18:09] VITALS: BP 150/65; PULSE 62; RESP 18; O2SAT 97
[2024-12-17] MEDS: POTASSIUM CHLORIDE 20 MEQ PACKET (FOR LIQUID) PO (18:09)
[2024-12-17] MEDS: POTASSIUM CHLORIDE 20 MEQ ER TABLET 40 MEQ PO (18:09)
[2024-12-17 20:53] VITALS: BP 140/54; PULSE 66; RESP 18; TEMP 36.7; O2SAT 96
--- NOTE | 2024-12-17 21:05 | PC.NURSE ---
updated on patient status. Stated that we will call him when the patient gets discharged from the ER.
[2024-12-17 22:34] VITALS: BP 125/53; PULSE 64; RESP 18; TEMP 36.7; O2SAT 97
[2024-12-17 23:05] LABS: Anion Gap 7 mmol/L (4-12); Blood Urea Nitrogen 13 mg/dL (7-17); Calcium 8.2 mg/dL (8.4-10.2); Carbon Dioxide 31 mmol/L (22-30); Chloride 88 mmol/L (98-107); Estimated CRCL calculation 30 ml/min; Estimated Glomerular Filt Rate 37; Glucose 93 mg/dL (65-110); Potassium 3.0 mmol/L (3.4-5.0); Sodium 126 mmol/L (137-145)
[2024-12-18] VITALS (12 sets, daily range): BP systolic 116–143; BP diastolic 42–66; PULSE 61–84; RESP 16–18; TEMP 36.4–36.8; O2SAT 96–100; BMI 36.8
[2024-12-18] MEDS: SODIUM CHLORIDE 0.9% IV 1,000 ML 999 ML IV CONT (00:25)
[2024-12-18 00:28] LABS: Hematocrit 28.2 % (37.0-47.0); Hemoglobin 8.4 g/dL (12.0-15.0); Immature Granulocyte Percent A 0.4 % (0-0.5); Lymphocytes Absolute Auto 4.00 K/mm3 (0.9-3.2); Mean Corpuscular HGB Conc 29.8 g/dl (32-36); Mean Corpuscular Hemoglobin 19.3 pg (26-34); Mean Corpuscular Volume 64.8 fl (80-100); Nucleated Red Blood Cells Absolute Auto 0.000 K/mm3 (0.0-0.012); Nucleated Red Blood Cells Perc 0.0 % (0.0-0.2); Platelet Count Result 289 k/mm3 (150-375); Red Blood Count 4.35 M/mm3 (4.2-5.4); White Blood Count 9.0 K/mm3 (4.5-10.0)
[2024-12-18] MEDS: KCL 20 MEQ/SW 100 ML 100 ML 50 MEQ IVPB (00:39)
[2024-12-18 01:02] LABS: Anisocytosis 1+; Band Neutrophils Percent 0 % (0-6); Hypochromasia 1+; Microcytosis 1+ (NORMAL)
[2024-12-18 01:03] LABS: Schistocytes None Seen
--- NOTE | 2024-12-18 01:56 | PC.NURSE ---
Updated RN at [facility] of the patients status and that she will be admitted for hypokalemia.
--- NOTE | 2024-12-18 02:20 | ADMGEN ---
This patient, Susana Napoles, was admitted to Medical Room 252-01. Patient/family oriented to hospital policies and general routines including ID bracelet, bed and alarms, visiting hours, pain management, procedures, bathroom and other care routines, personal items, smoking policy, room service/diet, and visiting hours. Information on how to activate the Rapid Response Team has been discussed. Patient/Family are encouraged to report perceived risks to care and to ask questions if they do not understand what they are told or what they should do.
[2024-12-18] MEDS: SODIUM CHLORIDE 0.9% IV 1,000 ML 75 ML IV CONT ×2 (03:09→16:40)
[2024-12-18] MEDS: MAGNESIUM SULF 1 GM/D5W 100 ML 1 GM/100 ML BAG IVPB (03:10)
--- NOTE | 2024-12-18 10:51 | PM.IMHP ---
H&P: HPI History of Present Illness Date/Time: 12/18/24 10:51 Chief Complaint: Nausea Narrative: This is a 84-year-old female who presents from [facility] for hypokalemia. Patient reports generalized weakness. No chest pain or shortness of breath. She reports ongoing GI upset with vomiting at least once a day. This has been ongoing for past several weeks. She denies any diarrhea. Is she denies any abdominal pain. She reports ongoing nausea. In the ED her vitals were stable. Laboratory workup revealed WBC of 9 hemoglobin of 8.4 platelet of 289 sodium was 1 low at 126 potassium 3 chloride 88 bicarbonate 31 BUN 13 creatinine 1.35 blood glucose was 93. LFTs were normal urinalysis was negative for infection. Patient was admitted for further treatment. Review of Systems Review of Systems: - CONSTITUTIONAL: Denies weight loss, fever and chills. - HEENT: Denies changes in vision and hearing - RESPIRATORY: Denies SOB and cough. - CV: Denies palpitations and CP. - GI: Denies abdominal pain, reports nausea, vomiting and denies diarrhea. - : Denies dysuria and urinary frequency. - MSK: Denies myalgia and joint pain. - SKIN: Denies rash and pruritus. - NEUROLOGICAL: Denies headache and syncope. - PSYCHIATRIC: Denies recent changes in mood. Denies anxiety and depression. [facility] Past Medical History Medical History (Updated 12/18/24 @ 01:03 by Zuri Rojas MD) H pylori ulcer Myocardial infarction (2008) B12 deficiency Allergic rhinitis Hypochromic microcytic anemia CKD (chronic kidney disease) stage 3, GFR 30-59 ml/min History of dementia History of hypertension History of hyperlipidemia Surgical History Surgical History (Updated 11/18/24 @ 06:45 by Kamilah Mcmanus DO) History of total abdominal hysterectomy and bilateral salpingo-oophorectomy Due to uterine cancer when she was in her 30s Hx of cholecystectomy History of heart artery stent (~2012) X3 [address] Jovita Smith heart and vascular History of tonsillectomy and adenoidectomy Status post cataract extraction of both eyes with insertion of intraocular lens History of laparoscopic appendectomy 12/22/23 Family History Family History Other Heart disease Social History Social History (Updated 11/18/24 @ 06:49 by Kamilah Mcmanus DO) Social History: Patient is . She raised 3 children. Code status: Full code (per POLST form from the long term) Surrogate decision maker: Ravi () Smoking status: Never smoker Alcohol intake: former Substance use: never Do You Feel Safe in your Home?: Yes Lack of Transportation: No Lack of Food: Never True Current Housing: I Have Housing Concerned About Future Housing: No Difficulty Paying Gas/Electric Bills: No Difficulty Paying for Meds: No Currently Unemployed: No Education: Grade School Difficulty w/ Childcare or Family Care: No Living arrangements: long term Additional living arrangements comments: [facility] Spiritual care concerns: No Meds Home Medications and Allergies Home Medications ?Medication ?Instructions ?Recorded ?Confirmed ?Type B12 Active 1,000 mcg PO DAILY 12/22/23 12/18/24 History Lasix 40 mg PO EVERY OTHER DAY 12/22/23 12/18/24 History acetaminophen 325 mg capsule 650 mg PO Q6-8H PRN pain 12/22/23 12/18/24 History atenolol 50 mg tablet 50 mg PO BID hypertension 12/22/23 12/18/24 History atorvastatin 40 mg tablet 40 mg PO HS 12/22/23 12/18/24 History cholecalciferol (vitamin D3) 125 mcg PO DAILY 12/22/23 12/18/24 History dicyclomine 20 mg PO TID 12/22/23 12/18/24 History hydralazine 25 mg PO TID 12/22/23 12/18/24 History hydrocodone 5 mg-acetaminophen 325 1 tablet PO Q6H PRN pain #10 tabs 12/22/23 12/18/24 Rx mg tablet hydroxyzine HCl 25 mg PO DAILY 12/22/23 12/18/24 History magnesium citrate 296 ml PO DAILY PRN Constipation 12/22/23 12/18/24 History mirtazapine 7.5 mg PO DAILY 12/22/23 12/18/24 History omeprazole 40 mg PO DAILY 12/22/23 12/18/24 History ondansetron 4 mg PO Q6H PRN nausea and vomiting 12/22/23 12/18/24 History oxybutynin chloride 5 mg PO BID 12/22/23 12/18/24 History sucralfate 1 g PO QID 12/22/23 12/18/24 History tramadol 50 mg PO Q12H PRN pain 12/22/23 12/18/24 History bisacodyl 10 mg rectal suppository 10 mg RECTAL DAILY PRN constipation 11/17/24 12/18/24 History cetirizine 10 mg tablet (24Hour 10 mg PO HS 11/17/24 12/18/24 History Allergy) polysaccharide iron complex 150 mg 150 mg PO DAILY@0800 #30 caps 11/21/24 12/18/24 Rx iron capsule Allergies Allergy/AdvReac Type Severity Reaction Status Date / Time iodine Allergy Severe HIVES-SWELL Verified 01/08/24 08:31 [facility] Vital Signs Vital Signs - 24 hr 12/17/24 14:00 12/17/24 15:43 12/17/24 15:45 Temperature 98.5 F 98.6 F 98.6 F Pulse Rate 79 71 71 Respiratory Rate 16 17 Blood Pressure 125/64 140/79 140/79 Pulse Oximetry 97 98 97 Oxygen Delivery Room Air 12/17/24 18:09 12/17/24 20:53 12/17/24 22:34 Temperature 98.0 F 98.1 F Pulse Rate 62 66 64 Respiratory Rate 18 18 18 Blood Pressure 150/65 H 140/54 L 125/53 L Pulse Oximetry 97 96 97 Oxygen Delivery 12/18/24 00:31 12/18/24 01:53 12/18/24 02:20 Temperature 98.2 F 98.3 F 97.7 F Pulse Rate 61 65 65 Respiratory Rate 18 18 18 Blood Pressure 125/53 L 124/52 L 121/45 L Pulse Oximetry 96 99 100 Oxygen Delivery 12/18/24 03:16 12/18/24 04:00 12/18/24 05:14 Temperature 97.6 F Pulse Rate 62 84 Respiratory Rate 16 Blood Pressure 116/42 L Pulse Oximetry 97 Oxygen Delivery Room Air 12/18/24 08:10 Temperature Pulse Rate Respiratory Rate Blood Pressure Pulse Oximetry Oxygen Delivery Room Air Exam Narrative: GENERAL: The patient is well developed, not in acute distress HEENT: Nonicteric sclerae, PERRLA, EOMI. Oropharynx clear. Moist mucous membranes. Conjunctivae appear well perfused. CHEST: Chest wall is nontender. HEART: Regular rate and rhythm without murmur, rubs, or gallops LUNGS: Clear to auscultation bilaterally. no respiratory distress ABDOMEN: Soft, positive bowel sounds, non-tender, no organomegaly. SKIN: No rash, no excessive bruising, petechiae, or purpura. NEUROLOGIC: Cranial nerves II-XII intact, alert and oriented x 3, no gross motor deficits EXTREMITIES: no edema, cyanosis or clubbing H&P: Results Labs Labs: Short CBC 12/17/24 12/18/24 Range/Units 16:40 00:23 WBC Cancelled 9.0 Hgb Cancelled 8.4 L Hct Cancelled 28.2 L Plt Count Cancelled 289 BMP 12/17/24 12/17/24 16:40 22:32 Sodium 125 L 126 L Potassium 2.8 L* 3.0 L Chloride 86 L 88 L Carbon Dioxide 31 H 31 H BUN 13 13 Creatinine 1.43 H 1.35 H Glucose 131 H 93 Calcium 8.6 8.2 L Liver Function 12/17/24 Range/Units 16:40 Total Bilirubin 0.1 L (0.2-1.3) mg/dL AST 28 (14-36) U/L ALT 16 (6-35) U/L Alkaline Phosphatase 74 (38-126) U/L Albumin 3.5 (3.5-5.1) g/dL Urine 12/17/24 Range/Units 16:19 Urine Color Yellow (Yellow) Urine Appearance Clear (Clear) Urine pH 7.0 (5.0-9.0) Ur Specific [place] 1.005 (1.001-1.035) Urine Protein Negative (Negative) mg/dL Urine Glucose (UA) Negative (Negative) mg/dL Assessment and Plan Assessment and plan (1) CKD (chronic kidney disease) stage 3, GFR 30-59 ml/min: Qualifiers: Chronic kidney disease stage 3 subtype: stage 3a (GFR 45-59) Qualified Code(s): N18.31 - Chronic kidney disease, stage 3a Code(s): N18.30 - Chronic kidney disease, stage 3 unspecified Status: Acute (2) Acute hypokalemia: Code(s): E87.6 - Hypokalemia Status: Acute (3) Dehydration: Code(s): E86.0 - Dehydration Status: Acute (4) Anemia: Qualifiers: Anemia type: unspecified type Qualified Code(s): D64.9 - Anemia, unspecified Code(s): D64.9 - Anemia, unspecified Status: Acute (5) Dementia: Qualifiers: Dementia type: unspecified type Dementia severity: severe Dementia behavioral or psychological symptom: without behavioral, psychotic, or mood disturbance or anxiety Qualified Code(s): F03.C0 - Unspecified dementia, severe, without behavioral disturbance, psychotic disturbance, mood disturbance, and anxiety Code(s): F03.90 - Unspecified dementia, unspecified severity, without behavioral disturbance, psychotic disturbance, mood disturbance, and anxiety Status: Acute Plan This is a 84-year-old female who presents from [facility] for hypokalemia. Patient reports generalized weakness. No chest pain or shortness of breath. She reports ongoing GI upset with vomiting at least once a day. This has been ongoing for past several weeks. She denies any diarrhea. Is she denies any abdominal pain. She reports ongoing nausea. In the ED her vitals were stable. Laboratory workup revealed WBC of 9 hemoglobin of 8.4 platelet of 289 sodium was 1 low at 126 potassium 3 chloride 88 bicarbonate 31 BUN 13 creatinine 1.35 blood glucose was 93. LFTs were normal urinalysis was negative for infection. Patient was admitted for further treatment. Hypokalemia replace and monitor Hyponatremia sodium 125 on arrival. Continue normal saline and monitor. Dehydration Nausea vomiting Dementia Chronic anemia Hypertension GERD Mild ALEC on CKD stage 3 Congestive heart failure Irritable bowel syndrome Wheelchair-bound DVT prophylaxis Lovenox Code status full code Hospitalist [facility] Advance Care Plan I have confirmed that the patient's Advanced Care Plan is present, code status is documented, or surrogate decision maker is listed in patient medical record.: Yes Medication Reconciliation I have utilized all available resources to obtain, update and review the patients current medications (includes all prescriptions, OTC, herbals, cannabis, and nutritional supplements).: Yes
[2024-12-18] MEDS: POTASSIUM CHLORIDE 20 MEQ ER TABLET 40 MEQ PO (11:49)
[2024-12-18] MEDS: SUCRALFATE 1 GM TABLET PO ×3 (11:49→21:42)
[2024-12-18] MEDS: ACETAMINOPHEN 325 MG TABLET 650 MG PO (12:27)
[2024-12-18 12:28] LABS: Alanine Aminotransferase 13 U/L (6-35); Albumin Level 3.1 g/dL (3.5-5.1); Alkaline Phosphatase 81 U/L (38-126); Anion Gap 7 mmol/L (4-12); Aspartate Amino Transferase 40 U/L (14-36); Bilirubin,Total 0.2 mg/dL (0.2-1.3); Blood Urea Nitrogen 12 mg/dL (7-17); Calcium 8.6 mg/dL (8.4-10.2); Carbon Dioxide 28 mmol/L (22-30); Chloride 94 mmol/L (98-107); Estimated CRCL calculation 38 ml/min; Estimated Glomerular Filt Rate 52; Glucose 103 mg/dL (65-110); Potassium 3.2 mmol/L (3.4-5.0); Sodium 129 mmol/L (137-145); Total Protein 5.9 g/dL (6.3-8.2)
[2024-12-18] MEDS: DICYCLOMINE HCL 10 MG CAPSULE 20 MG PO ×2 (13:44→16:39)
[2024-12-18] MEDS: CALCIUM CARBONATE (TUMS) 500 MG (200 MG ELEMENTAL) PO (16:39)
[2024-12-18] MEDS: ATORVASTATIN 40 MG TABLET PO (21:41)
[2024-12-18] MEDS: PANTOPRAZOLE 40 MG TABLET PO (21:42)
[2024-12-18] MEDS: LORATADINE 10 MG TABLET PO (21:42)
[2024-12-18] MEDS: ONDANSETRON INJ 4 MG/2 ML VIAL IV PUSH (21:48)
[2024-12-19] VITALS (12 sets, daily range): BP systolic 86–141; BP diastolic 48–95; PULSE 67–88; RESP 18–20; TEMP 36.5–36.9; O2SAT 97–99; BMI 36.8
[2024-12-19] MEDS: ONDANSETRON INJ 4 MG/2 ML VIAL IV PUSH (02:00)
[2024-12-19] MEDS: SODIUM CHLORIDE 0.9% IV 1,000 ML 75 ML IV CONT (04:51)
[2024-12-19 05:31] LABS: Hematocrit 29.6 % (37.0-47.0); Hemoglobin 8.5 g/dL (12.0-15.0); Immature Granulocyte Percent A 0.5 % (0-0.5); Immature Platelet Fraction Pct 5.3 % (0.9-11.2); Lymphocytes Absolute Auto 2.12 K/mm3 (0.9-3.2); Mean Corpuscular HGB Conc 28.7 g/dl (32-36); Mean Corpuscular Hemoglobin 19.0 pg (26-34); Mean Corpuscular Volume 66.2 fl (80-100); Nucleated Red Blood Cells Absolute Auto 0.000 K/mm3 (0.0-0.012); Nucleated Red Blood Cells Perc 0.0 % (0.0-0.2); Platelet Count Result 294 k/mm3 (150-375); Red Blood Count 4.47 M/mm3 (4.2-5.4); White Blood Count 11.4 K/mm3 (4.5-10.0)
[2024-12-19 05:48] LABS: Alanine Aminotransferase 12 U/L (6-35); Albumin Level 3.0 g/dL (3.5-5.1); Alkaline Phosphatase 77 U/L (38-126); Anion Gap 6 mmol/L (4-12); Aspartate Amino Transferase 31 U/L (14-36); Bilirubin,Total 0.4 mg/dL (0.2-1.3); Blood Urea Nitrogen 9 mg/dL (7-17); Calcium 8.7 mg/dL (8.4-10.2); Carbon Dioxide 29 mmol/L (22-30); Chloride 96 mmol/L (98-107); Estimated CRCL calculation 43 ml/min; Estimated Glomerular Filt Rate 60; Glucose 93 mg/dL (65-110); Magnesium 1.6 mg/dL (1.6-2.3); Potassium 4.2 mmol/L (3.4-5.0); Sodium 131 mmol/L (137-145); Total Protein 5.9 g/dL (6.3-8.2)
[2024-12-19 05:51] LABS: Band Neutrophils Percent 0 % (0-6)
[2024-12-19 05:52] LABS: Anisocytosis 1+; Hypochromasia 1+; Ovalocytes 1+; Schistocytes None Seen
[2024-12-19] MEDS: SUCRALFATE 1 GM TABLET PO ×4 (06:05→21:03)
[2024-12-19] MEDS: DICYCLOMINE HCL 10 MG CAPSULE 20 MG PO ×3 (08:35→17:28)
[2024-12-19] MEDS: CHOLECALCIFEROL (VITAMIN D3) 125 MCG (5,000 UNITS) TABLET PO (08:36)
[2024-12-19] MEDS: PANTOPRAZOLE 40 MG TABLET PO ×2 (08:36→21:03)
[2024-12-19] MEDS: MIRTAZAPINE 7.5 MG TABLET PO (08:36)
[2024-12-19] MEDS: CYANOCOBALAMIN 1,000 MCG TABLET 1000 MCG PO (08:36)
[2024-12-19] MEDS: traMADol HCL (*CRX) 50 MG TABLET PO (08:37)
[2024-12-19] MEDS: CALCIUM CARBONATE (TUMS) 500 MG (200 MG ELEMENTAL) PO (09:18)
--- NOTE | 2024-12-19 09:58 | PM.IMPN ---
Progress Note: A&P Assessment and Plan (1) CKD (chronic kidney disease) stage 3, GFR 30-59 ml/min: Qualifiers: Chronic kidney disease stage 3 subtype: stage 3a (GFR 45-59) Qualified Code(s): N18.31 - Chronic kidney disease, stage 3a Code(s): N18.30 - Chronic kidney disease, stage 3 unspecified Status: Acute (2) Acute hypokalemia: Code(s): E87.6 - Hypokalemia Status: Acute (3) Dehydration: Code(s): E86.0 - Dehydration Status: Acute (4) Anemia: Qualifiers: Anemia type: unspecified type Qualified Code(s): D64.9 - Anemia, unspecified Code(s): D64.9 - Anemia, unspecified Status: Acute (5) Dementia: Qualifiers: Dementia type: unspecified type Dementia severity: severe Dementia behavioral or psychological symptom: without behavioral, psychotic, or mood disturbance or anxiety Qualified Code(s): F03.C0 - Unspecified dementia, severe, without behavioral disturbance, psychotic disturbance, mood disturbance, and anxiety Code(s): F03.90 - Unspecified dementia, unspecified severity, without behavioral disturbance, psychotic disturbance, mood disturbance, and anxiety Status: Acute Plan This is a 84-year-old female who presents from [facility] for hypokalemia. Patient reports generalized weakness. No chest pain or shortness of breath. She reports ongoing GI upset with vomiting at least once a day. This has been ongoing for past several weeks. She denies any diarrhea. Is she denies any abdominal pain. She reports ongoing nausea. In the ED her vitals were stable. Laboratory workup revealed WBC of 9 hemoglobin of 8.4 platelet of 289 sodium was 1 low at 126 potassium 3 chloride 88 bicarbonate 31 BUN 13 creatinine 1.35 blood glucose was 93. LFTs were normal urinalysis was negative for infection. Patient was admitted for further treatment. Hypokalemia replace and monitor Hyponatremia sodium 125 on arrival. Continue normal saline and monitor. Will stop normal saline. Sodium level has improved to likely due to poor p.o. intake. Dehydration due to poor p.o. intake. Not able to eat due to dentition problem. To see dentist as an outpatient basis. She will need to be on a soft diet dietary supplement to add for nutrition Nausea vomiting Dementia Chronic anemia Hypertension GERD Mild ALEC on CKD stage 3 resolved Congestive heart failure Irritable bowel syndrome Wheelchair-bound DVT prophylaxis Lovenox Code status full code Subjective Date/time seen: 12/19/24 09:58 Interval history: Patient's daughter at bedside. Patient having difficulty chewing with problems with dentition. She is trying to set up with dentist upon discharge. No other overnight events. Labs reviewed. Review of Systems Review of Systems: All systems reviewed & are unremarkable except as noted in HPI and below Exam Narrative: GENERAL: The patient is well developed, not in acute distress HEENT: Nonicteric sclerae, PERRLA, EOMI. Oropharynx clear. Moist mucous membranes. Conjunctivae appear well perfused. Poor dentition CHEST: Chest wall is nontender. HEART: Regular rate and rhythm without murmur, rubs, or gallops LUNGS: Clear to auscultation bilaterally. no respiratory distress ABDOMEN: Soft, positive bowel sounds, non-tender, no organomegaly. SKIN: No rash, no excessive bruising, petechiae, or purpura. NEUROLOGIC: Cranial nerves II-XII intact, alert and oriented x 3, no gross motor deficits EXTREMITIES: no edema, cyanosis or clubbing Objective Data Vital Signs Vital Signs: Vital Signs - 24 hr 12/18/24 12:00 12/18/24 13:44 12/18/24 14:00 Temperature 97.9 F Pulse Rate 72 68 Respiratory Rate 16 Blood Pressure 132/46 L 139/49 L Pulse Oximetry 99 Oxygen Delivery 12/18/24 16:00 12/18/24 20:05 12/18/24 20:10 Temperature 98.3 F Pulse Rate 72 73 Respiratory Rate 17 Blood Pressure 143/66 H Pulse Oximetry 99 Oxygen Delivery Room Air 12/18/24 20:10 12/19/24 00:00 12/19/24 04:00 Temperature Pulse Rate 79 75 68 Respiratory Rate Blood Pressure Pulse Oximetry Oxygen Delivery 12/19/24 05:34 12/19/24 08:35 12/19/24 08:37 Temperature 98.4 F Pulse Rate 79 79 Respiratory Rate 18 Blood Pressure 141/95 H Pulse Oximetry 97 Oxygen Delivery Room Air Intake/Output Intake/Output: Intake & Output 12/16/24 12/17/24 12/18/24 12/19/24 23:59 23:59 23:59 23:59 Intake Total 2600 913.7 Output Total 300 275 500 Balance -300 7446 413.7 Meds/Results Medications: Active Medications Generic Name Dose Route Start Last Admin Trade Name Teena PRN Reason Stop Dose Admin Acetaminophen 650 mg 12/18/24 01:03 12/18/24 12:27 Acetaminophen 325 Mg Tablet PO 650 mg Q4H PRN Administration Mild Pain (1-3) or Fever Hydrocodone Bitart/Acetaminophen 1 tab 12/18/24 10:55 Hydrocodone/Acetaminophen (*Crx) 5-325 Mg Tablet PO Q6H PRN pain 7-10 Atenolol 50 mg 12/18/24 21:00 12/19/24 08:37 Atenolol 50 Mg Tablet PO 50 mg Q12HR CARRIE Administration Atorvastatin Calcium 40 mg 12/18/24 21:00 12/18/24 21:41 Atorvastatin 40 Mg Tablet PO 40 mg HS CARRIE Administration Bisacodyl 10 mg 12/18/24 10:55 Bisacodyl 10 Mg Suppository RECTAL DAILY PRN constipation Calcium Carbonate 200 mg 12/18/24 16:22 12/19/24 09:18 Calcium Carbonate (Tums) 500 Mg (200 Mg Elemental) PO 200 mg Q6H PRN Administration Indigestion Cyanocobalamin 1,000 mcg 12/19/24 09:00 12/19/24 08:36 Cyanocobalamin 1,000 Mcg Tablet PO 1,000 mcg QAM CARRIE Administration Dicyclomine HCl 20 mg 12/18/24 13:00 12/19/24 08:35 Dicyclomine Hcl 10 Mg Capsule PO 20 mg TID CARRIE Administration Hydralazine HCl 25 mg 12/18/24 14:00 12/19/24 06:05 Hydralazine Hcl 25 Mg Tablet PO 25 mg Q8HR CARRIE Administration Hydroxyzine HCl 25 mg 12/19/24 09:00 12/19/24 08:36 Hydroxyzine Hcl 25 Mg Tablet PO 25 mg DAILY CARRIE Administration Loratadine 10 mg 12/18/24 21:00 12/18/24 21:42 Loratadine 10 Mg Tablet PO 10 mg HS CARRIE Administration Magnesium Citrate 296 ml 12/18/24 11:09 Magnesium Citrate 300 Ml Btl PO DAILY PRN Constipation Mirtazapine 7.5 mg 12/19/24 09:00 12/19/24 08:36 Mirtazapine 7.5 Mg Tablet PO 7.5 mg DAILY CARRIE Administration Ondansetron HCl 4 mg 12/18/24 01:03 12/19/24 02:00 Ondansetron Inj 4 Mg/2 Ml Vial IV PUSH 4 mg Q4H PRN Administration Nausea Ondansetron HCl 4 mg 12/18/24 11:12 Ondansetron Hcl Odt 4 Mg Tablet PO Q6H PRN nausea and vomiting Oxybutynin Chloride 5 mg 12/18/24 17:00 12/19/24 08:36 Oxybutynin Chloride 5 Mg Tablet PO 5 mg BID CARRIE Administration Pantoprazole Sodium 40 mg 12/18/24 21:00 12/19/24 08:36 Pantoprazole 40 Mg Tablet PO 40 mg Q12HR CARRIE Administration Polysaccharide Iron Complex 150 mg 12/19/24 08:00 12/19/24 08:36 Polysaccharide Iron Complex 150 Mg Capsule PO 150 mg DAILY@0800 CARRIE Administration Sucralfate 1 gm 12/18/24 11:30 12/19/24 06:05 Sucralfate 1 Gm Tablet PO 1 gm ACHS CARRIE Administration Tramadol HCl 50 mg 12/18/24 11:15 12/19/24 08:37 Tramadol Hcl (*Crx) 50 Mg Tablet PO 50 mg Q12H PRN Administration Pain Rated 4-6 Vitamin D 125 mcg 12/19/24 09:00 12/19/24 08:36 Cholecalciferol (Vitamin D3) 125 Mcg (5,000 Units) Tablet PO 125 mcg DAILY CARRIE Administration Labs Labs: Laboratory Results - last 24 hr 12/18/24 12/19/24 09:36 05:01 WBC 11.4 H RBC 4.47 Hgb 8.5 L Hct 29.6 L MCV 66.2 L MCH 19.0 L MCHC 28.7 L RDW 20.3 H Plt Count 294 MPV 11.3 H Immature Gran % (Auto) 0.5 Neut % (Auto) 71.2 Lymph % (Auto) 18.6 [place] % (Auto) 8.8 H Eos % (Auto) 0.6 Baso % (Auto) 0.3 Lymph # (Auto) 2.12 [place] # (Auto) 1.0 H Eos # (Auto) 0.1 Baso # (Auto) 0.0 Abs Immat Gran (auto) 0.06 H Absolute Neuts (auto) 8.1 H Absolute Nucleated RBC 0.000 Band Neutrophils % 0 Nucleated RBC % 0.0 Platelet Estimate Adequate % Immature Plt Fraction 5.3 Hypochromasia 1+ Anisocytosis 1+ Ovalocytes 1+ Schistocytes None seen Sodium 129 L 131 L Potassium 3.2 L 4.2 Chloride 94 L 96 L Carbon Dioxide 28 29 Anion Gap 7 6 BUN 12 9 Creatinine 1.02 H 0.90 Estim Creat Clear Calc 38 43 Estimated GFR 52 L 60 Glucose 103 93 Calcium 8.6 8.7 Magnesium 1.6 Total Bilirubin 0.2 0.4 AST 40 H 31 ALT 13 12 Alkaline Phosphatase 81 77 Total Protein 5.9 L 5.9 L Albumin 3.1 L 3.0 L
[2024-12-19] MEDS: ACETAMINOPHEN 325 MG TABLET 650 MG PO (15:23)
[2024-12-19] MEDS: LORATADINE 10 MG TABLET PO (21:04)
[2024-12-19] MEDS: ATORVASTATIN 40 MG TABLET PO (21:04)
[2024-12-20] VITALS (12 sets, daily range): BP systolic 104–138; BP diastolic 77–85; PULSE 65–94; RESP 16–18; TEMP 36.4–37.2; O2SAT 96–100
[2024-12-20 04:30] LABS: Add Urine Microscopic? YES; Appearance Urine Cloudy (Clear); Glucose Urine UA Negative (Negative); Leukocyte Esterase Ur 3+ LEU/UL (Negative); Nitrate Urine Negative (Negative); Specific Grav Ur 1.007 (1.001-1.035)
[2024-12-20 04:32] LABS: Non Pathogenic Casts 0-2
[2024-12-20 05:31] LABS: Hematocrit 30.1 % (37.0-47.0); Hemoglobin 8.5 g/dL (12.0-15.0); Immature Granulocyte Percent A 0.8 % (0-0.5); Immature Platelet Fraction Pct 6.1 % (0.9-11.2); Lymphocytes Absolute Auto 2.44 K/mm3 (0.9-3.2); Mean Corpuscular HGB Conc 28.2 g/dl (32-36); Mean Corpuscular Hemoglobin 19.4 pg (26-34); Mean Corpuscular Volume 68.7 fl (80-100); Nucleated Red Blood Cells Absolute Auto 0.000 K/mm3 (0.0-0.012); Nucleated Red Blood Cells Perc 0.0 % (0.0-0.2); Platelet Count Result 254 k/mm3 (150-375); Red Blood Count 4.38 M/mm3 (4.2-5.4); White Blood Count 10.4 K/mm3 (4.5-10.0)
[2024-12-20] MEDS: SUCRALFATE 1 GM TABLET PO ×4 (05:39→21:41)
[2024-12-20 05:48] LABS: Alanine Aminotransferase 11 U/L (6-35); Albumin Level 2.9 g/dL (3.5-5.1); Alkaline Phosphatase 76 U/L (38-126); Anion Gap 7 mmol/L (4-12); Aspartate Amino Transferase 25 U/L (14-36); Bilirubin,Total 0.2 mg/dL (0.2-1.3); Blood Urea Nitrogen 9 mg/dL (7-17); Calcium 8.6 mg/dL (8.4-10.2); Carbon Dioxide 25 mmol/L (22-30); Chloride 98 mmol/L (98-107); Estimated CRCL calculation 40 ml/min; Estimated Glomerular Filt Rate 54; Glucose 86 mg/dL (65-110); Magnesium 1.6 mg/dL (1.6-2.3); Potassium 3.8 mmol/L (3.4-5.0); Sodium 130 mmol/L (137-145); Total Protein 5.7 g/dL (6.3-8.2)
[2024-12-20 05:54] LABS: Microcytosis 2+ (NORMAL); Schistocytes Rare
[2024-12-20 05:55] LABS: Poikilocytosis 1+
[2024-12-20 05:56] LABS: Hypochromasia 1+
[2024-12-20] MEDS: DICYCLOMINE HCL 10 MG CAPSULE 20 MG PO ×3 (08:43→17:08)
[2024-12-20] MEDS: CHOLECALCIFEROL (VITAMIN D3) 125 MCG (5,000 UNITS) TABLET PO (08:44)
[2024-12-20] MEDS: PANTOPRAZOLE 40 MG TABLET PO ×2 (08:44→21:41)
[2024-12-20] MEDS: ACETAMINOPHEN 325 MG TABLET 650 MG PO (08:44)
[2024-12-20] MEDS: MIRTAZAPINE 7.5 MG TABLET PO (08:44)
[2024-12-20] MEDS: CYANOCOBALAMIN 1,000 MCG TABLET 1000 MCG PO (08:45)
--- NOTE | 2024-12-20 12:08 | PM.IMPN ---
Progress Note: A&P Assessment and Plan (1) CKD (chronic kidney disease) stage 3, GFR 30-59 ml/min: Qualifiers: Chronic kidney disease stage 3 subtype: stage 3a (GFR 45-59) Qualified Code(s): N18.31 - Chronic kidney disease, stage 3a Code(s): N18.30 - Chronic kidney disease, stage 3 unspecified Status: Acute (2) Acute hypokalemia: Code(s): E87.6 - Hypokalemia Status: Acute (3) Dehydration: Code(s): E86.0 - Dehydration Status: Acute (4) Anemia: Qualifiers: Anemia type: unspecified type Qualified Code(s): D64.9 - Anemia, unspecified Code(s): D64.9 - Anemia, unspecified Status: Acute (5) Dementia: Qualifiers: Dementia type: unspecified type Dementia severity: severe Dementia behavioral or psychological symptom: without behavioral, psychotic, or mood disturbance or anxiety Qualified Code(s): F03.C0 - Unspecified dementia, severe, without behavioral disturbance, psychotic disturbance, mood disturbance, and anxiety Code(s): F03.90 - Unspecified dementia, unspecified severity, without behavioral disturbance, psychotic disturbance, mood disturbance, and anxiety Status: Acute Plan This is a 84-year-old female who presents from [facility] for hypokalemia. Patient reports generalized weakness. No chest pain or shortness of breath. She reports ongoing GI upset with vomiting at least once a day. This has been ongoing for past several weeks. She denies any diarrhea. Is she denies any abdominal pain. She reports ongoing nausea. In the ED her vitals were stable. Laboratory workup revealed WBC of 9 hemoglobin of 8.4 platelet of 289 sodium was 1 low at 126 potassium 3 chloride 88 bicarbonate 31 BUN 13 creatinine 1.35 blood glucose was 93. LFTs were normal urinalysis was negative for infection. Patient was admitted for further treatment. Hypokalemia replace and monitor Hyponatremia sodium 125 on arrival. Continue normal saline and monitor. Will stop normal saline. Sodium level has improved to likely due to poor p.o. intake. Dehydration due to poor p.o. intake. Not able to eat due to dentition problem. To see dentist as an outpatient basis. She will need to be on a soft diet dietary supplement to add for nutrition Nausea vomiting pyruia s/o uti. thomas tart ceftriaxone. follow urine cutlure Dementia Chronic anemia Hypertension GERD Mild ALEC on CKD stage 3 resolved Congestive heart failure Irritable bowel syndrome Wheelchair-bound DVT prophylaxis Lovenox Code status full code Subjective Date/time seen: 12/20/24 12:08 Interval history: no overnight events, patient had cloudy urine yesterday and had ua checked. labs reivewd. no other complaints. eating some Review of Systems Review of Systems: All systems reviewed & are unremarkable except as noted in HPI and below Exam Narrative: GENERAL: The patient is well developed, not in acute distress HEENT: Nonicteric sclerae, PERRLA, EOMI. Oropharynx clear. Moist mucous membranes. Conjunctivae appear well perfused. Poor dentition CHEST: Chest wall is nontender. HEART: Regular rate and rhythm without murmur, rubs, or gallops LUNGS: Clear to auscultation bilaterally. no respiratory distress ABDOMEN: Soft, positive bowel sounds, non-tender, no organomegaly. SKIN: No rash, no excessive bruising, petechiae, or purpura. NEUROLOGIC: Cranial nerves II-XII intact, alert and oriented x 3, no gross motor deficits EXTREMITIES: no edema, cyanosis or clubbing Objective Data Vital Signs Vital Signs: Vital Signs - 24 hr 12/19/24 12:55 12/19/24 14:40 12/19/24 14:50 Temperature 97.9 F Pulse Rate 74 Respiratory Rate 20 Blood Pressure 86/48 L Pulse Oximetry 97 Oxygen Delivery Room Air Room Air 12/19/24 16:00 12/19/24 17:27 12/19/24 20:00 Temperature Pulse Rate 67 68 Respiratory Rate Blood Pressure 123/57 L Pulse Oximetry Oxygen Delivery Room Air 12/19/24 20:00 12/19/24 21:03 12/19/24 22:00 Temperature 97.7 F Pulse Rate 68 73 70 Respiratory Rate 18 Blood Pressure 136/74 Pulse Oximetry 99 Oxygen Delivery 12/20/24 00:00 12/20/24 04:00 12/20/24 06:00 Temperature 98.7 F Pulse Rate 68 67 88 Respiratory Rate 18 Blood Pressure 104/85 Pulse Oximetry 100 Oxygen Delivery 12/20/24 08:00 12/20/24 08:50 Temperature Pulse Rate 94 Respiratory Rate Blood Pressure Pulse Oximetry Oxygen Delivery Room Air Intake/Output Intake/Output: Intake & Output 12/17/24 12/18/24 12/19/24 12/20/24 23:59 23:59 23:59 23:59 Intake Total 2600 1633.7 240 Output Total 159 322 9330 400 Balance -300 2325 133.7 -160 Meds/Results Medications: Active Medications Generic Name Dose Route Start Last Admin Trade Name Teena PRN Reason Stop Dose Admin Acetaminophen 650 mg 12/18/24 01:03 12/20/24 08:44 Acetaminophen 325 Mg Tablet PO 650 mg Q4H PRN Administration Mild Pain (1-3) or Fever Hydrocodone Bitart/Acetaminophen 1 tab 12/18/24 10:55 Hydrocodone/Acetaminophen (*Crx) 5-325 Mg Tablet PO Q6H PRN pain 7-10 Atenolol 50 mg 12/18/24 21:00 12/20/24 08:44 Atenolol 50 Mg Tablet PO 50 mg Q12HR CARRIE Administration Atorvastatin Calcium 40 mg 12/18/24 21:00 12/19/24 21:04 Atorvastatin 40 Mg Tablet PO 40 mg HS CARRIE Administration Bisacodyl 10 mg 12/18/24 10:55 Bisacodyl 10 Mg Suppository RECTAL DAILY PRN constipation Calcium Carbonate 200 mg 12/18/24 16:22 12/19/24 09:18 Calcium Carbonate (Tums) 500 Mg (200 Mg Elemental) PO 200 mg Q6H PRN Administration Indigestion Cyanocobalamin 1,000 mcg 12/19/24 09:00 12/20/24 08:45 Cyanocobalamin 1,000 Mcg Tablet PO 1,000 mcg QAM CARRIE Administration Dicyclomine HCl 20 mg 12/18/24 13:00 12/20/24 08:43 Dicyclomine Hcl 10 Mg Capsule PO 20 mg TID CARRIE Administration Hydralazine HCl 25 mg 12/18/24 14:00 12/20/24 05:39 Hydralazine Hcl 25 Mg Tablet PO 25 mg Q8HR CARRIE Administration Hydroxyzine HCl 25 mg 12/19/24 09:00 12/20/24 08:45 Hydroxyzine Hcl 25 Mg Tablet PO 25 mg DAILY CARRIE Administration Loratadine 10 mg 12/18/24 21:00 12/19/24 21:04 Loratadine 10 Mg Tablet PO 10 mg HS CARRIE Administration Magnesium Citrate 296 ml 12/18/24 11:09 Magnesium Citrate 300 Ml Btl PO DAILY PRN Constipation Mirtazapine 7.5 mg 12/19/24 09:00 12/20/24 08:44 Mirtazapine 7.5 Mg Tablet PO 7.5 mg DAILY CARRIE Administration Ondansetron HCl 4 mg 12/18/24 01:03 12/19/24 02:00 Ondansetron Inj 4 Mg/2 Ml Vial IV PUSH 4 mg Q4H PRN Administration Nausea Ondansetron HCl 4 mg 12/18/24 11:12 Ondansetron Hcl Odt 4 Mg Tablet PO Q6H PRN nausea and vomiting Oxybutynin Chloride 5 mg 12/18/24 17:00 12/20/24 08:44 Oxybutynin Chloride 5 Mg Tablet PO 5 mg BID CARRIE Administration Pantoprazole Sodium 40 mg 12/18/24 21:00 12/20/24 08:44 Pantoprazole 40 Mg Tablet PO 40 mg Q12HR CARRIE Administration Polysaccharide Iron Complex 150 mg 12/19/24 08:00 12/20/24 08:44 Polysaccharide Iron Complex 150 Mg Capsule PO 150 mg DAILY@0800 CARRIE Administration Sucralfate 1 gm 12/18/24 11:30 12/20/24 05:39 Sucralfate 1 Gm Tablet PO 1 gm ACHS CARRIE Administration Tramadol HCl 50 mg 12/18/24 11:15 12/19/24 08:37 Tramadol Hcl (*Crx) 50 Mg Tablet PO 50 mg Q12H PRN Administration Pain Rated 4-6 Vitamin D 125 mcg 12/19/24 09:00 12/20/24 08:44 Cholecalciferol (Vitamin D3) 125 Mcg (5,000 Units) Tablet PO 125 mcg DAILY CARRIE Administration Labs Labs: Laboratory Results - last 24 hr 12/20/24 12/20/24 04:20 04:51 WBC 10.4 H RBC 4.38 Hgb 8.5 L Hct 30.1 L MCV 68.7 L MCH 19.4 L MCHC 28.2 L RDW 20.7 H Plt Count 254 MPV 11.1 H Immature Gran % (Auto) 0.8 H Neut % (Auto) 62.5 Lymph % (Auto) 23.5 [place] % (Auto) 10.4 H Eos % (Auto) 2.4 Baso % (Auto) 0.4 Lymph # (Auto) 2.44 [place] # (Auto) 1.1 H Eos # (Auto) 0.3 Baso # (Auto) 0.0 Abs Immat Gran (auto) 0.08 H Absolute Neuts (auto) 6.5 Absolute Nucleated RBC 0.000 Band Neutrophils % Not Reportable Nucleated RBC % 0.0 Platelet Estimate Adequate % Immature Plt Fraction 6.1 Hypochromasia 1+ Poikilocytosis 1+ Microcytosis 2+ Schistocytes Rare Sodium 130 L Potassium 3.8 Chloride 98 Carbon Dioxide 25 Anion Gap 7 BUN 9 Creatinine 0.98 Estim Creat Clear Calc 40 Estimated GFR 54 L Glucose 86 Calcium 8.6 Magnesium 1.6 Total Bilirubin 0.2 AST 25 ALT 11 Alkaline Phosphatase 76 Total Protein 5.7 L Albumin 2.9 L Urine Color Yellow Urine Appearance Cloudy H Urine pH 8.0 Ur Specific [place] 1.007 Urine Protein Negative Urine Glucose (UA) Negative Urine Ketones Negative Ur Blood (Man) Negative Urine Nitrate Negative Urine Bilirubin Negative Urine Urobilinogen 0.2 Ur Leukocyte Esterase 3+ H Urine RBC 0-2 Urine WBC 51-100 Ur Squamous Epith Cells None seen Urine Bacteria 4+ H Urine Casts 0-2
[2024-12-20] MEDS: cefTRIAXone 1 GM in SODIUM CHLORIDE 0.9% IV 50 ML 100 ML IVPB (12:23)
[2024-12-20] MEDS: ATORVASTATIN 40 MG TABLET PO (21:40)
[2024-12-20] MEDS: LORATADINE 10 MG TABLET PO (21:41)
[2024-12-20 22:16] LABS: Anion Gap 6 mmol/L (4-12); Blood Urea Nitrogen 12 mg/dL (7-17); Calcium 8.5 mg/dL (8.4-10.2); Carbon Dioxide 25 mmol/L (22-30); Chloride 98 mmol/L (98-107); Estimated CRCL calculation 39 ml/min; Estimated Glomerular Filt Rate 53; Glucose 95 mg/dL (65-110); Magnesium 1.5 mg/dL (1.6-2.3); Potassium 4.0 mmol/L (3.4-5.0); Sodium 129 mmol/L (137-145)
[2024-12-21] VITALS (15 sets, daily range): BP systolic 120–145; BP diastolic 51–63; PULSE 74–93; RESP 16–20; TEMP 36.6–37.9; O2SAT 91–97
[2024-12-21 05:42] LABS: Hematocrit 27.3 % (37.0-47.0); Hemoglobin 7.9 g/dL (12.0-15.0); Immature Granulocyte Percent A 0.8 % (0-0.5); Immature Platelet Fraction Pct 5.2 % (0.9-11.2); Lymphocytes Absolute Auto 2.65 K/mm3 (0.9-3.2); Mean Corpuscular HGB Conc 28.9 g/dl (32-36); Mean Corpuscular Hemoglobin 19.4 pg (26-34); Mean Corpuscular Volume 66.9 fl (80-100); Nucleated Red Blood Cells Absolute Auto 0.000 K/mm3 (0.0-0.012); Nucleated Red Blood Cells Perc 0.0 % (0.0-0.2); Platelet Count Result 242 k/mm3 (150-375); Red Blood Count 4.08 M/mm3 (4.2-5.4); White Blood Count 10.4 K/mm3 (4.5-10.0)
[2024-12-21] MEDS: SUCRALFATE 1 GM TABLET PO ×4 (05:58→21:52)
[2024-12-21 06:03] LABS: Alanine Aminotransferase 12 U/L (6-35); Albumin Level 2.8 g/dL (3.5-5.1); Alkaline Phosphatase 74 U/L (38-126); Anion Gap 4 mmol/L (4-12); Aspartate Amino Transferase 26 U/L (14-36); Bilirubin,Total 0.2 mg/dL (0.2-1.3); Blood Urea Nitrogen 11 mg/dL (7-17); Calcium 8.5 mg/dL (8.4-10.2); Carbon Dioxide 26 mmol/L (22-30); Chloride 95 mmol/L (98-107); Estimated CRCL calculation 40 ml/min; Estimated Glomerular Filt Rate 55; Glucose 89 mg/dL (65-110); Magnesium 1.4 mg/dL (1.6-2.3); Potassium 3.8 mmol/L (3.4-5.0); Sodium 125 mmol/L (137-145); Total Protein 5.8 g/dL (6.3-8.2)
[2024-12-21 07:17] LABS: Hypochromasia 1+; Microcytosis 1+ (NORMAL); Schistocytes None Seen
[2024-12-21] MEDS: MIRTAZAPINE 7.5 MG TABLET PO (09:03)
[2024-12-21] MEDS: PANTOPRAZOLE 40 MG TABLET PO ×2 (09:03→21:51)
[2024-12-21] MEDS: DICYCLOMINE HCL 10 MG CAPSULE 20 MG PO ×3 (09:03→16:17)
[2024-12-21] MEDS: CYANOCOBALAMIN 1,000 MCG TABLET 1000 MCG PO (09:03)
[2024-12-21] MEDS: CHOLECALCIFEROL (VITAMIN D3) 125 MCG (5,000 UNITS) TABLET PO (09:04)
--- NOTE | 2024-12-21 10:06 | P.PNIM_ITS ---
Progress Note: A&P Assessment and Plan (1) CKD (chronic kidney disease) stage 3, GFR 30-59 ml/min: Qualifiers: Chronic kidney disease stage 3 subtype: stage 3a (GFR 45-59) Qualified Code(s): N18.31 - Chronic kidney disease, stage 3a Code(s): N18.30 - Chronic kidney disease, stage 3 unspecified Status: Acute (2) Acute hypokalemia: Code(s): E87.6 - Hypokalemia Status: Acute (3) Dehydration: Code(s): E86.0 - Dehydration Status: Acute (4) Anemia: Qualifiers: Anemia type: unspecified type Qualified Code(s): D64.9 - Anemia, unspecified Code(s): D64.9 - Anemia, unspecified Status: Acute (5) Dementia: Qualifiers: Dementia type: unspecified type Dementia severity: severe Dementia behavioral or psychological symptom: without behavioral, psychotic, or mood disturbance or anxiety Qualified Code(s): F03.C0 - Unspecified dementia, severe, without behavioral disturbance, psychotic disturbance, mood disturbance, and anxiety Code(s): F03.90 - Unspecified dementia, unspecified severity, without behavioral disturbance, psychotic disturbance, mood disturbance, and anxiety Status: Acute Plan This is a 84-year-old female who presents from [facility] for hypokalemia. Patient reports generalized weakness. No chest pain or shortness of breath. She reports ongoing GI upset with vomiting at least once a day. This has been ongoing for past several weeks. She denies any diarrhea. Is she denies any abdominal pain. She reports ongoing nausea. In the ED her vitals were stable. Laboratory workup revealed WBC of 9 hemoglobin of 8.4 platelet of 289 sodium was 1 low at 126 potassium 3 chloride 88 bicarbonate 31 BUN 13 creatinine 1.35 blood glucose was 93. LFTs were normal urinalysis was negative for infection. Patient was admitted for further treatment. Hypokalemia replace and monitor Hyponatremia sodium 125 on arrival. Continue normal saline and monitor. Will stop normal saline. Sodium level has improved to likely due to poor p.o. intake. Sodium level did again. Will add salt tablet. Dehydration due to poor p.o. intake. Not able to eat due to dentition problem. To see dentist as an outpatient basis. She will need to be on a soft diet dietary supplement to add for nutrition Nausea vomiting pyruia s/o uti. thomas tart ceftriaxone. follow urine cutlure Dementia Chronic anemia Hypertension GERD Mild ALEC on CKD stage 3 resolved Congestive heart failure Irritable bowel syndrome Wheelchair-bound DVT prophylaxis Lovenox Code status full code Subjective Date/time seen: 12/21/24 10:06 Interval history: No overnight events. No new complaints. Family at bedside and discussed with them. Review of Systems Review of Systems: All systems reviewed & are unremarkable except as noted in HPI and below Exam Narrative: GENERAL: The patient is well developed, not in acute distress HEENT: Nonicteric sclerae, PERRLA, EOMI. Oropharynx clear. Moist mucous membranes. Conjunctivae appear well perfused. Poor dentition CHEST: Chest wall is nontender. HEART: Regular rate and rhythm without murmur, rubs, or gallops LUNGS: Clear to auscultation bilaterally. no respiratory distress ABDOMEN: Soft, positive bowel sounds, non-tender, no organomegaly. SKIN: No rash, no excessive bruising, petechiae, or purpura. NEUROLOGIC: Cranial nerves II-XII intact, alert and oriented x 3, no gross motor deficits EXTREMITIES: no edema, cyanosis or clubbing Objective Data Vital Signs Vital Signs: Vital Signs - 24 hr 12/20/24 12:00 12/20/24 13:55 12/20/24 16:00 Temperature 97.6 F Pulse Rate 73 69 81 Respiratory Rate 18 Blood Pressure 113/77 Pulse Oximetry 96 Oxygen Delivery Fraction of Inspired Oxygen 12/20/24 20:00 12/20/24 20:46 12/20/24 20:52 Temperature 98.9 F Pulse Rate 77 80 65 Respiratory Rate 16 Blood Pressure 138/80 Pulse Oximetry 100 Oxygen Delivery Fraction of Inspired Oxygen 12/20/24 21:23 12/20/24 21:40 12/21/24 00:00 Temperature Pulse Rate 90 93 Respiratory Rate Blood Pressure Pulse Oximetry 100 Oxygen Delivery Room Air Fraction of Inspired Oxygen 12/21/24 04:00 12/21/24 05:23 12/21/24 09:03 Temperature 98.0 F Pulse Rate 78 74 74 Respiratory Rate 16 Blood Pressure 120/63 Pulse Oximetry 92 Oxygen Delivery Fraction of Inspired Oxygen Intake/Output Intake/Output: Intake & Output 12/18/24 12/19/24 12/20/24 12/21/24 23:59 23:59 23:59 23:59 Intake Total 2600 1633.7 1350 680 Output Total 275 1500 700 650 Balance 2325 133.7 650 30 Meds/Results Medications: Active Medications Generic Name Dose Route Start Last Admin Trade Name Freq PRN Reason Stop Dose Admin Acetaminophen 650 mg 12/18/24 01:03 12/20/24 08:44 Acetaminophen 325 Mg Tablet PO 650 mg Q4H PRN Administration Mild Pain (1-3) or Fever Hydrocodone Bitart/Acetaminophen 1 tab 12/18/24 10:55 Hydrocodone/Acetaminophen (*Crx) 5-325 Mg Tablet PO Q6H PRN pain 7-10 Atenolol 50 mg 12/18/24 21:00 12/21/24 09:03 Atenolol 50 Mg Tablet PO 50 mg Q12HR CARRIE Administration Atorvastatin Calcium 40 mg 12/18/24 21:00 12/20/24 21:40 Atorvastatin 40 Mg Tablet PO 40 mg HS CARRIE Administration Bisacodyl 10 mg 12/18/24 10:55 Bisacodyl 10 Mg Suppository RECTAL DAILY PRN constipation Calcium Carbonate 200 mg 12/18/24 16:22 12/19/24 09:18 Calcium Carbonate (Tums) 500 Mg (200 Mg Elemental) PO 200 mg Q6H PRN Administration Indigestion Cyanocobalamin 1,000 mcg 12/19/24 09:00 12/21/24 09:03 Cyanocobalamin 1,000 Mcg Tablet PO 1,000 mcg QAM CARRIE Administration Dicyclomine HCl 20 mg 12/18/24 13:00 12/21/24 09:03 Dicyclomine Hcl 10 Mg Capsule PO 20 mg TID CARRIE Administration Hydralazine HCl 25 mg 12/18/24 14:00 12/21/24 05:58 Hydralazine Hcl 25 Mg Tablet PO 25 mg Q8HR CARRIE Administration Hydroxyzine HCl 25 mg 12/19/24 09:00 12/21/24 09:04 Hydroxyzine Hcl 25 Mg Tablet PO 25 mg DAILY CARRIE Administration Ceftriaxone Sodium 1 gm/ 50 mls @ 100 mls/hr 12/20/24 13:00 12/20/24 12:53 Sodium Chloride IVPB Infused Q24H CARRIE Infusion Magnesium Sulfate 2 gm in 50 mls @ 50 mls/hr 12/21/24 10:05 Magnesium Sulf 2 Gm/Water 50ml IVPB 12/21/24 11:04 ONCE ONE Loratadine 10 mg 12/18/24 21:00 12/20/24 21:41 Loratadine 10 Mg Tablet PO 10 mg HS CARRIE Administration Magnesium Citrate 296 ml 12/18/24 11:09 Magnesium Citrate 300 Ml Btl PO DAILY PRN Constipation Mirtazapine 7.5 mg 12/19/24 09:00 12/21/24 09:03 Mirtazapine 7.5 Mg Tablet PO 7.5 mg DAILY CARRIE Administration Ondansetron HCl 4 mg 12/18/24 01:03 12/19/24 02:00 Ondansetron Inj 4 Mg/2 Ml Vial IV PUSH 4 mg Q4H PRN Administration Nausea Ondansetron HCl 4 mg 12/18/24 11:12 Ondansetron Hcl Odt 4 Mg Tablet PO Q6H PRN nausea and vomiting Oxybutynin Chloride 5 mg 12/18/24 17:00 12/21/24 09:03 Oxybutynin Chloride 5 Mg Tablet PO 5 mg BID CARRIE Administration Pantoprazole Sodium 40 mg 12/18/24 21:00 12/21/24 09:03 Pantoprazole 40 Mg Tablet PO 40 mg Q12HR CARRIE Administration Polysaccharide Iron Complex 150 mg 12/19/24 08:00 12/21/24 09:04 Polysaccharide Iron Complex 150 Mg Capsule PO 150 mg DAILY@0800 CARRIE Administration Sodium Chloride 500 mg 12/21/24 10:05 Sodium Chloride 500 Mg Tablet PO BID [facility] Sucralfate 1 gm 12/18/24 11:30 12/21/24 05:58 Sucralfate 1 Gm Tablet PO 1 gm ACHS CARRIE Administration Tramadol HCl 50 mg 12/18/24 11:15 12/19/24 08:37 Tramadol Hcl (*Crx) 50 Mg Tablet PO 50 mg Q12H PRN Administration Pain Rated 4-6 Vitamin D 125 mcg 12/19/24 09:00 12/21/24 09:04 Cholecalciferol (Vitamin D3) 125 Mcg (5,000 Units) Tablet PO 125 mcg DAILY CARRIE Administration Labs Labs: Laboratory Results - last 24 hr 12/20/24 12/21/24 21:43 05:24 WBC 10.4 H RBC 4.08 L Hgb 7.9 L Hct 27.3 L MCV 66.9 L MCH 19.4 L MCHC 28.9 L RDW 20.7 H Plt Count 242 MPV 11.0 H Immature Gran % (Auto) 0.8 H Neut % (Auto) 59.1 Lymph % (Auto) 25.6 [place] % (Auto) 12.7 H Eos % (Auto) 1.4 Baso % (Auto) 0.4 Lymph # (Auto) 2.65 [place] # (Auto) 1.3 H Eos # (Auto) 0.1 Baso # (Auto) 0.0 Abs Immat Gran (auto) 0.08 H Absolute Neuts (auto) 6.1 Absolute Nucleated RBC 0.000 Band Neutrophils % Not Reportable Nucleated RBC % 0.0 Platelet Estimate Adequate % Immature Plt Fraction 5.2 Hypochromasia 1+ Microcytosis 1+ Schistocytes None seen Sodium 129 L 125 L Potassium 4.0 3.8 Chloride 98 95 L Carbon Dioxide 25 26 Anion Gap 6 4 BUN 12 11 Creatinine 1.00 0.97 Estim Creat Clear Calc 39 40 Estimated GFR 53 L 55 L Glucose 95 89 Calcium 8.5 8.5 Phosphorus 3.1 Magnesium 1.5 L 1.4 L Total Bilirubin 0.2 AST 26 ALT 12 Alkaline Phosphatase 74 Total Protein 5.8 L Albumin 2.8 L
[2024-12-21] MEDS: MAGNESIUM SULF 2 GM/WATER 50ML 2 GM/50 ML BAG IVPB (10:23)
[2024-12-21] MEDS: SODIUM CHLORIDE 500 MG TABLET PO ×2 (10:23→16:18)
[2024-12-21] MEDS: cefTRIAXone 1 GM in SODIUM CHLORIDE 0.9% IV 50 ML 100 ML IVPB (13:03)
[2024-12-21 17:20] LABS: Sodium 125 mmol/L (137-145)
[2024-12-21] MEDS: ATORVASTATIN 40 MG TABLET PO (21:51)
[2024-12-21] MEDS: LORATADINE 10 MG TABLET PO (21:52)
[2024-12-21] MEDS: ACETAMINOPHEN 325 MG TABLET 650 MG PO (21:52)
[2024-12-22] VITALS (8 sets, daily range): BP systolic 94–135; BP diastolic 53–88; PULSE 66–74; RESP 16–20; TEMP 36.6–36.7; O2SAT 97–100
[2024-12-22] MEDS: SUCRALFATE 1 GM TABLET PO ×2 (05:25→10:37)
[2024-12-22 05:32] LABS: Hematocrit 28.9 % (37.0-47.0); Hemoglobin 8.4 g/dL (12.0-15.0); Immature Granulocyte Percent A 0.8 % (0-0.5); Immature Platelet Fraction Pct 5.6 % (0.9-11.2); Lymphocytes Absolute Auto 2.76 K/mm3 (0.9-3.2); Mean Corpuscular HGB Conc 29.1 g/dl (32-36); Mean Corpuscular Hemoglobin 19.7 pg (26-34); Mean Corpuscular Volume 67.7 fl (80-100); Nucleated Red Blood Cells Absolute Auto 0.000 K/mm3 (0.0-0.012); Nucleated Red Blood Cells Perc 0.0 % (0.0-0.2); Platelet Count Result 245 k/mm3 (150-375); Red Blood Count 4.27 M/mm3 (4.2-5.4); White Blood Count 7.4 K/mm3 (4.5-10.0)
[2024-12-22 05:56] LABS: Hypochromasia 1+; Poikilocytosis 1+; Schistocytes None Seen
[2024-12-22 06:13] LABS: Alanine Aminotransferase 11 U/L (6-35); Albumin Level 2.8 g/dL (3.5-5.1); Alkaline Phosphatase 69 U/L (38-126); Anion Gap 8 mmol/L (4-12); Aspartate Amino Transferase 31 U/L (14-36); Bilirubin,Total 0.2 mg/dL (0.2-1.3); Blood Urea Nitrogen 12 mg/dL (7-17); Calcium 8.9 mg/dL (8.4-10.2); Carbon Dioxide 24 mmol/L (22-30); Chloride 100 mmol/L (98-107); Estimated CRCL calculation 41 ml/min; Estimated Glomerular Filt Rate 57; Glucose 85 mg/dL (65-110); Magnesium 1.9 mg/dL (1.6-2.3); Potassium 3.6 mmol/L (3.4-5.0); Sodium 132 mmol/L (137-145); Total Protein 5.8 g/dL (6.3-8.2)
[2024-12-22] MEDS: DICYCLOMINE HCL 10 MG CAPSULE 20 MG PO ×2 (07:59→12:25)
[2024-12-22] MEDS: CHOLECALCIFEROL (VITAMIN D3) 125 MCG (5,000 UNITS) TABLET PO (08:00)
[2024-12-22] MEDS: MIRTAZAPINE 7.5 MG TABLET PO (08:00)
[2024-12-22] MEDS: SODIUM CHLORIDE 500 MG TABLET PO (08:00)
[2024-12-22] MEDS: CYANOCOBALAMIN 1,000 MCG TABLET 1000 MCG PO (08:00)
[2024-12-22] MEDS: PANTOPRAZOLE 40 MG TABLET PO (08:01)
--- NOTE | 2024-12-22 11:36 | PM.DS ---
DS: Admitting Diagnosis Discharge Date Admitting Diagnosis hypokalemia DS: Discharge Diagnosis Discharge Diagnosis (1) CKD (chronic kidney disease) stage 3, GFR 30-59 ml/min: Qualifiers: Chronic kidney disease stage 3 subtype: stage 3a (GFR 45-59) Qualified Code(s): N18.31 - Chronic kidney disease, stage 3a Code(s): N18.30 - Chronic kidney disease, stage 3 unspecified Status: Acute (2) Acute hypokalemia: Code(s): E87.6 - Hypokalemia Status: Acute (3) Dehydration: Code(s): E86.0 - Dehydration Status: Acute (4) Anemia: Qualifiers: Anemia type: unspecified type Qualified Code(s): D64.9 - Anemia, unspecified Code(s): D64.9 - Anemia, unspecified Status: Acute (5) Dementia: Qualifiers: Dementia behavioral or psychological symptom: without behavioral, psychotic, or mood disturbance or anxiety Dementia severity: severe Dementia type: unspecified type Qualified Code(s): F03.C0 - Unspecified dementia, severe, without behavioral disturbance, psychotic disturbance, mood disturbance, and anxiety Code(s): F03.90 - Unspecified dementia, unspecified severity, without behavioral disturbance, psychotic disturbance, mood disturbance, and anxiety Status: Acute DS: Summary Hospital Course Hospital Course: This is a 84-year-old female who presents from [facility] for hypokalemia. Patient reports generalized weakness. No chest pain or shortness of breath. She reports ongoing GI upset with vomiting at least once a day. This has been ongoing for past several weeks. She denies any diarrhea. Is she denies any abdominal pain. She reports ongoing nausea. In the ED her vitals were stable. Laboratory workup revealed WBC of 9 hemoglobin of 8.4 platelet of 289 sodium was 1 low at 126 potassium 3 chloride 88 bicarbonate 31 BUN 13 creatinine 1.35 blood glucose was 93. LFTs were normal urinalysis was negative for infection. Patient was admitted for further treatment. Hypokalemia replace and monitor and much improved. On Lasix at home. Will need potassium supplementation Hyponatremia sodium 125 on arrival. Continue normal saline and monitor. Will stop normal saline. Sodium level has improved to likely due to poor p.o. intake. added salt tablet. continue salt tablet at discharge does have chronic hyponatremia in the past. Dehydration due to poor p.o. intake. Not able to eat due to dentition problem. To see dentist as an outpatient basis. She will need to be on a soft diet dietary supplement to add for nutrition Nausea vomiting pyruia s/o uti. will start ceftriaxone. follow urine culture. Will switch to cefdinir at discharge Dementia Chronic anemia Hypertension GERD Mild ALEC on CKD stage 3 resolved Congestive heart failure Irritable bowel syndrome Wheelchair-bound DVT prophylaxis Lovenox Code status full code Time Spent with Patient Time attestation: Total time spent providing and/or coordinating discharge services: 40 minutes Exam Narrative: GENERAL: The patient is well developed, not in acute distress HEENT: Nonicteric sclerae, PERRLA, EOMI. Oropharynx clear. Moist mucous membranes. Conjunctivae appear well perfused. Poor dentition CHEST: Chest wall is nontender. HEART: Regular rate and rhythm without murmur, rubs, or gallops LUNGS: Clear to auscultation bilaterally. no respiratory distress ABDOMEN: Soft, positive bowel sounds, non-tender, no organomegaly. SKIN: No rash, no excessive bruising, petechiae, or purpura. NEUROLOGIC: Cranial nerves II-XII intact, alert and conversant, no gross motor deficits EXTREMITIES: no edema, cyanosis or clubbing DS: Data Data Completed and Pending Labs on day of discharge: Labs from last 24 hours 12/22/24 12/21/24 05:02 16:59 WBC 7.4 RBC 4.27 Hgb 8.4 L Hct 28.9 L MCV 67.7 L MCH 19.7 L MCHC 29.1 L RDW 21.1 H Plt Count 245 MPV 11.3 H Immature Gran % (Auto) 0.8 H Neut % (Auto) 44.3 L Lymph % (Auto) 37.6 [place] % (Auto) 13.3 H Eos % (Auto) 3.3 Baso % (Auto) 0.7 Lymph # (Auto) 2.76 [place] # (Auto) 1.0 H Eos # (Auto) 0.2 Baso # (Auto) 0.1 Abs Immat Gran (auto) 0.06 H Absolute Neuts (auto) 3.3 Absolute Nucleated RBC 0.000 Band Neutrophils % Not Reportable Nucleated RBC % 0.0 Platelet Estimate Adequate % Immature Plt Fraction 5.6 Hypochromasia 1+ Poikilocytosis 1+ Schistocytes None seen Sodium 132 L 125 L Potassium 3.6 Chloride 100 Carbon Dioxide 24 Anion Gap 8 BUN 12 Creatinine 0.94 Estim Creat Clear Calc 41 Estimated GFR 57 L Glucose 85 Calcium 8.9 Magnesium 1.9 Total Bilirubin 0.2 AST 31 ALT 11 Alkaline Phosphatase 69 Total Protein 5.8 L Albumin 2.8 L Preliminary micro results at discharge 12/17/24 16:19 - Preliminary Urine Clean Catch Discharge Plan Discharge Attending physician on discharge: Jai Sims Discharging Clinician: Jai Sims Anticipated Discharge Date/Time: 12/22/24 11:40 Patient Disposition: SNF Activity: as tolerated Diet: regular Discharge Instructions: minced and moist level 5 diet Patient Language: [place] Citizen Stand Alone Forms: General Discharge Information Follow-up/Referrals: Fan,Abraham Hedrick DO [Primary Care Provider] - 1 Week Discharge Medications: New cefdinir 300 mg capsule 300 mg PO Q12H Qty: 10 0RF potassium chloride 20 mEq packet 20 meq PO EVERY OTHER DAY Qty: 30 0RF Rx Instructions: while on lasix sodium chloride 1,000 mg tablet,soluble 500 mg PO DAILY Qty: 14 0RF Continued B12 Active 1,000 mcg PO DAILY atorvastatin 40 mg tablet 40 mg PO HS atenolol 50 mg tablet 50 mg PO BID acetaminophen 325 mg Capsule 650 mg PO Q6-8H PRN (Reason: pain) cholecalciferol (vitamin D3) 125 mcg PO DAILY dicyclomine 20 mg PO TID Lasix 40 mg PO EVERY OTHER DAY hydralazine 25 mg PO TID hydroxyzine HCl 25 mg PO DAILY magnesium citrate 296 ml PO DAILY PRN (Reason: Constipation) mirtazapine 7.5 mg PO DAILY omeprazole 40 mg PO DAILY ondansetron 4 mg PO Q6H PRN (Reason: nausea and vomiting) oxybutynin chloride 5 mg PO BID sucralfate 1 g PO QID tramadol 50 mg PO Q12H PRN (Reason: pain) hydrocodone-acetaminophen 5-325 mg tablet 1 tablet PO Q6H PRN (Reason: pain) Qty: 10 0RF bisacodyl 10 mg suppository 10 mg RECTAL DAILY PRN (Reason: constipation) cetirizine [24Hour Allergy] 10 mg tablet 10 mg PO HS polysaccharide iron complex 150 mg iron Capsule 150 mg PO DAILY@0800 Qty: 30 0RF Other Ambulatory Orders: Basic Metabolic Panel (Routine) Timeframe: 1 Week Location: Determined by Patient Ordered By: Jai Sims Date of admission: 12/20/24 13:49 Primary Care Provider: Fan,Abraham Hedrick Admitting Provider: Kamilah Mcmanus Attending physician on admission: Kamilah Mcmanus Condition: Stable
[2024-12-22] MEDS: cefTRIAXone 1 GM in SODIUM CHLORIDE 0.9% IV 50 ML 100 ML IVPB (12:25)
== END 2024-12-22 17:00 | DRG 641 ==
LOC: ANHED 12-18 01:03 → ANH2MED 12-18 01:53
PROVIDERS: Emergency Medicine; Nurse Practitioner Gerontology; Admitting Provider Internal Medicine; Emergency Provider Student in an Organized Health Care Education/Training Program; PCP Internal Medicine; Visit Provider Internal Medicine
DX: E87.6 Hypokalemia (principal); N17.9 Acute kidney failure, unspecified; I13.0 Hypertensive heart and chronic kidney disease with heart failure and stage 1 through stage 4 chronic kidney disease, or unspecified chronic kidney disease; N39.0 Urinary tract infection, site not specified; N18.31 Chronic kidney disease, stage 3a; E86.0 Dehydration; E87.1 Hypo-osmolality and hyponatremia; D64.9 Anemia, unspecified; F03.90 Unspecified dementia, unspecified severity, without behavioral disturbance, psychotic disturbance, mood disturbance, and anxiety; K21.9 Gastro-esophageal reflux disease without esophagitis; K58.9 Irritable bowel syndrome, unspecified; E78.5 Hyperlipidemia, unspecified; Z99.3 Dependence on wheelchair; I25.2 Old myocardial infarction; Z90.710 Acquired absence of both cervix and uterus; Z90.722 Acquired absence of ovaries, bilateral; Z85.42 Personal history of malignant neoplasm of other parts of uterus; Z90.49 Acquired absence of other specified parts of digestive tract; Z95.5 Presence of coronary angioplasty implant and graft; Z96.1 Presence of intraocular lens; Z98.42 Cataract extraction status, left eye; Z98.41 Cataract extraction status, right eye
CPT/HCPCS: 36415; 80048; 80053; 81001; 83735; 84100; 84295; 85025; 85055; 87086; 96361; 96365; 96366; 96368; 96375; 96376; 97161; 97165; 99285; A9270; G0378; J0696; J2405; J3475; J3480; J7030

== ENCOUNTER 2025-01-09 10:34 | Emergency (ER) | payer MEDICARE, MEDICAID, SELFPAY ==
[2025-01-09 10:26] VITALS: BP 121/62; PULSE 88; RESP 20; TEMP 36.6; O2SAT 99
[2025-01-09 10:42] VITALS: O2SAT 98
[2025-01-09 10:45] VITALS: BP 121/62; PULSE 83; RESP 17; TEMP 36.6; O2SAT 97
--- NOTE | 2025-01-09 11:15 | ED_ITS ---
HPI - General Adult General Chief complaint: Allergic Reaction Stated complaint: hives Time Seen by Provider: 01/09/25 10:35 History of Present Illness HPI narrative: This is an 84-year-old female with severe dementia presenting for hives. [facility] has a noticed a hives on her neck and some redness to her face. She has no other symptoms. She has no complaints. No history of allergic reactions. Related Data Home Medications ?Medication ?Instructions ?Recorded ?Confirmed ?Last Taken ?Type B12 Active 1,000 mcg PO DAILY 12/22/23 12/18/24 Unknown History Lasix 40 mg PO EVERY OTHER DAY 12/22/23 12/18/24 Unknown History acetaminophen 325 mg capsule 650 mg PO Q6-8H PRN pain 12/22/23 12/18/24 Unknown History atenolol 50 mg tablet 50 mg PO BID hypertension 12/22/23 12/18/24 Unknown H istory atorvastatin 40 mg tablet 40 mg PO HS 12/22/23 12/18/24 Unknown History cholecalciferol (vitamin D3) 125 mcg PO DAILY 12/22/23 12/18/24 Unknown History dicyclomine 20 mg PO TID 12/22/23 12/18/24 Unknown History hydralazine 25 mg PO TID 12/22/23 12/18/24 Unknown History hydroxyzine HCl 25 mg PO DAILY 12/22/23 12/18/24 Unknown History magnesium citrate 296 ml PO DAILY PRN Constipation 12/22/23 12/18/24 Unknown History mirtazapine 7.5 mg PO DAILY 12/22/23 12/18/24 Unknown History omeprazole 40 mg PO DAILY 12/22/23 12/18/24 Unknown History ondansetron 4 mg PO Q6H PRN nausea and vomiting 12/22/23 12/18/24 Unknown History oxybutynin chloride 5 mg PO BID 12/22/23 12/18/24 Unknown History sucralfate 1 g PO QID 12/22/23 12/18/24 Unknown History tramadol 50 mg PO Q12H PRN pain 12/22/23 12/18/24 Unknown History bisacodyl 10 mg rectal suppository 10 mg RECTAL DAILY PRN constipation 11/17/24 12/18/24 Unknown History cetirizine 10 mg tablet (24Hour 10 mg PO HS 11/17/24 12/18/24 Unknown History Allergy) Allergies Allergy/AdvReac Type Severity Reaction Status Date / Time iodine Allergy Severe Anaphylactic Verified 01/09/25 10:48 Shock lansoprazole Allergy Unknown Verified 01/09/25 10:48 levofloxacin (From Levaquin) Allergy Unknown Verified 01/09/25 10:48 [facility] Past Medical History Medical History (Updated 01/09/25 @ 11:19 by Ravi Wong MD) H pylori ulcer Myocardial infarction (2008) B12 deficiency Allergic rhinitis Hypochromic microcytic anemia CKD (chronic kidney disease) stage 3, GFR 30-59 ml/min History of dementia History of hypertension History of hyperlipidemia Surgical History Surgical History (Updated 11/18/24 @ 06:45 by Kamilah Mcmanus DO) History of total abdominal hysterectomy and bilateral salpingo-oophorectomy Due to uterine cancer when she was in her 30s Hx of cholecystectomy History of heart artery stent (~2012) X3 [address] [facility] History of tonsillectomy and adenoidectomy Status post cataract extraction of both eyes with insertion of intraocular lens History of laparoscopic appendectomy 12/22/23 Family History Family History Other Heart disease Social History Social History (Updated 11/18/24 @ 06:49 by Kamilah Mcmanus DO) Social History: Patient is . She raised 3 children. Code status: Full code (per [facility]ST form from the [facility]) Surrogate decision maker: Ravi () Smoking status: Never smoker Alcohol intake: former Substance use: never Do You Feel Safe in your Home?: Yes Lack of Transportation: No Lack of Food: Never True Current Housing: I Have Housing Concerned About Future Housing: No Difficulty Paying Gas/Electric Bills: No Difficulty Paying for Meds: No Currently Unemployed: No Education: Grade School Difficulty w/ Childcare or Family Care: No Living arrangements: [facility] Additional living arrangements comments: [facility] Spiritual care concerns: No Exam Narrative: APPEARANCE: No apparent distress. Head: atraumatic. EYES: EOMI, NOSE: Atraumatic NECK: Trachea midline RESPIRATORY: No increased rate of breathing clear to auscultation CARDIOVASCULAR: RRR, no peripheral edema ABDOMINAL: Non-distended soft nontender MUSCULOSKELETAl: No obvious deformities NEURO: Alert. Moving 4/4 extremities SKIN:: Very Mild erythema to the patient's face. No visible hives PSYCHIATRIC: Normal affect Course Vital Signs Vital signs: Vital Signs Temperature 97.8 F 01/09/25 10:26 Pulse Rate 88 01/09/25 10:26 Respiratory Rate 20 01/09/25 10:26 Blood Pressure 121/62 01/09/25 10:26 Pulse Oximetry 99 01/09/25 10:26 Oxygen Delivery Room Air 01/09/25 10:26 Temperature 97.8 F 01/09/25 10:45 Pulse Rate 83 01/09/25 10:45 Respiratory Rate 17 01/09/25 10:45 Blood Pressure 121/62 01/09/25 10:45 Pulse Oximetry 97 01/09/25 10:45 Oxygen Delivery Room Air 01/09/25 10:42 Medical Decision Making MDM Narrative Medical decision making narrative: -Course: 84-year-old female sent in for possible allergic reaction. The patient has dementia and has no complaints and does not know why she is here. Her is at bedside says that her face is just slightly more red than usual but it is very very mild and if he was not here I would think this is her normal appearance. She does not have any hives on my exam. No wheezing, nausea vomiting or diarrhea. Vital signs are stable. Patient with treated for allergic reaction discharged back to [facility]. Given return precautions. -DDX includes but is not limited to: Allergic reaction, anaphylaxis Vital Signs Vital Signs: Vital Signs Temperature 97.8 F 01/09/25 10:26 Pulse Rate 88 01/09/25 10:26 Respiratory Rate 20 01/09/25 10:26 Blood Pressure 121/62 01/09/25 10:26 Pulse Oximetry 99 01/09/25 10:26 Oxygen Delivery Room Air 01/09/25 10:26 Temperature 97.8 F 01/09/25 10:45 Pulse Rate 83 01/09/25 10:45 Respiratory Rate 17 01/09/25 10:45 Blood Pressure 121/62 01/09/25 10:45 Pulse Oximetry 97 01/09/25 10:45 Oxygen Delivery Room Air 01/09/25 10:42 Discharge Plan Discharge Clinical Impression: Allergic reaction Patient Disposition: Home Condition: Stable Instructions: Antibiotic Form, General Allergic Reaction (ED) Additional Instructions: Susana was seen for a possible allergic reaction. Symptoms have resolved by time she arrived in the emergency department. She developed an itchy rash she can use Benadryl as needed. Return if she develops any new or worsening symptoms. Patient Language: Turkmen Prescriptions: No Action B12 Active 1,000 mcg PO DAILY atorvastatin 40 mg tablet 40 mg PO HS atenolol 50 mg tablet 50 mg PO BID acetaminophen 325 mg Capsule 650 mg PO Q6-8H PRN (Reason: pain) cholecalciferol (vitamin D3) 125 mcg PO DAILY dicyclomine 20 mg PO TID Lasix 40 mg PO EVERY OTHER DAY hydralazine 25 mg PO TID hydroxyzine HCl 25 mg PO DAILY magnesium citrate 296 ml PO DAILY PRN (Reason: Constipation) mirtazapine 7.5 mg PO DAILY omeprazole 40 mg PO DAILY ondansetron 4 mg PO Q6H PRN (Reason: nausea and vomiting) oxybutynin chloride 5 mg PO BID sucralfate 1 g PO QID tramadol 50 mg PO Q12H PRN (Reason: pain) hydrocodone-acetaminophen 5-325 mg tablet 1 tablet PO Q6H PRN (Reason: pain) Qty: 10 0RF bisacodyl 10 mg suppository 10 mg RECTAL DAILY PRN (Reason: constipation) cetirizine [24Hour Allergy] 10 mg tablet 10 mg PO HS polysaccharide iron complex 150 mg iron Capsule 150 mg PO DAILY@0800 Qty: 30 0RF sodium chloride 1,000 mg tablet,soluble 500 mg PO DAILY Qty: 14 0RF cefdinir 300 mg capsule 300 mg PO Q12H Qty: 10 0RF potassium chloride 20 mEq packet 20 meq PO EVERY OTHER DAY Qty: 30 0RF Rx Instructions: while on lasix Follow-up/Referrals: Fan,Abraham Hedrick DO [Primary Care Provider] -
[2025-01-09] MEDS: dexAMETHasone SOD PHOS INJ 10 MG/ML 1 ML VIAL IM (11:24)
[2025-01-09] MEDS: diphenhydrAMINE HCl CAP 25 MG CAPSULE PO (11:24)
[2025-01-09] MEDS: FAMOTIDINE 20 MG TABLET 40 MG PO (11:24)
[2025-01-09 11:29] VITALS: BP 121/62; PULSE 75; RESP 20; O2SAT 97
--- OUTSIDE RECORDS SUMMARY | 2025-01-09 11:31 | XMS_ITS | Clinical Summary ---
Author Organization [facility] Address [address] [address] Care Team Providers Care High School Vice Principal Name Role Phone Unavailable Primary Care Provider Unavailabl e Source Comments [facility],non-owned Affiliates and Associated Physician Practices is amultiple site organization consisting of ambulatory clinics and hospital sitesin [place], [place], [place] and [place]. This disclosure is being madepursuant to the Care Everywhere program and may not contain all information available regarding this patient. Last updated 18.[facility] Allergies Active Allergy Reactions Criticality Noted Date [...] on file Legal Sex Female 7:05 AM APPLICATION PERFORMANCE ENGINEER Gender Identity Not on file Sexual Orientation Not on file Last Filed Vital Signs Vital Sign Reading Time Taken Comments Blood Pressure 152/56 06/04/2012 7:48 AM APPLICATION PERFORMANCE ENGINEER Pulse 69 06/04/2012 7:48 AM APPLICATION PERFORMANCE ENGINEER Temperature 36.6 C (97.8 F) 06/04/2012 7:21 AM APPLICATION PERFORMANCE ENGINEER Respiratory Rate 20 06/04/2012 7:21 AM APPLICATION PERFORMANCE ENGINEER Oxygen Saturation 100% 06/04/2012 7:21 AM APPLICATION PERFORMANCE ENGINEER Inhaled Oxygen Concentration - - Weight 142.5 kg (314 lb 3.2 oz) 013 12:14 AM APPLICATION PERFORMANCE ENGINEER Height 154.9 cm (5' 1) 06/03/2012 7:36 AM APPLICATION PERFORMANCE ENGINEER Body Mass Index 59.37 06/03/2012 7:36 AM APPLICATION PERFORMANCE ENGINEER Plan of Treatment Health Maintenance Due Date [...] Patient Date of Phone Billing Address Personal/Family [address] [place] [address], [place] [address] [facility] MANAGED MEDICARE [place]V [place] * Guarantor: MASON [employer] Account Type Relation to Patient Date of Phone Billing Address Personal/Family [address] [place] [phone] * Guarantor: MASON [employer] Account Type Relation to Patient Date of Phone Billing Address Personal/Family [address] [place] [phone] Advance Directives * FULL RESUSCITATION (Latest Code Status on File) Date Activated Date Inactivated Comments 06/03/2012 9:47 AM 06/04/2012 1:27 PM
--- OUTSIDE RECORDS SUMMARY | 2025-01-09 11:31 | XMS_ITS | Clinical Summary ---
Author Organization [facility] Address [address] [place] [address] Phone Care Team Providers Care Machine Heel Builder Name Role Phone Krishan Balderrama MD Primary Care Provider [phone] Allergies Active Allergy Reactions Criticality Noted Date [...] age to complete this topic Care Teams Machine Heel Builder Relationship Specialty Start Date End Date Krishan Balderrama MD PCP - General Internal Medicine 03/22/16
--- OUTSIDE RECORDS SUMMARY | 2025-01-09 11:31 | XMS_ITS | Continuity of Care Document ---
Author Organization [facility] Address [address] [place] [address] [address] [place] [address] Phone Care Team Providers Care Couples Therapist Name Role Phone Carmen Block Unavailable Unavailable Procedures Procedure Date Office/outpatient Visit, [facility] Advance Directives Directive Yes / No Effective Date File Name No Information Encounters Encounter Description Practice Location Reason(s) For Visit Diagnoses Date Provider Providers Copied on Encounter Office/outpat ient Visit, [facility], [address] [place] [address] [address], [place], [place], [id number], tel:[phone] [facility] [place] No Information Jul-0 1-200 7 Mckayla Morales. [address] , [address], [place], [address], [place]. tel:[phone] Family History Family Member Type Diagnosis Age At Onset No Information Payers Payer name Insurance type Covered libertarian ID Authoriza tion(s) No Information Social History [...]
--- OUTSIDE RECORDS SUMMARY | 2025-01-09 11:31 | XMS_ITS | Patient Health Record ---
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) Psychosis (F29) Active confirmed Problem Dementia (22804012) Dementia (F03.90) Active confirmed Plan Of Treatment No Information Insurance Providers Payer Name Payer Address Payer Phone Subscriber Number Group Number Insured Name Patient Relationship to Insured Coverage Start Date Coverage End Date [employer] A[employer] Medicare [address] [address] [place] [address] [id number] Susana Napoles Self - patient is the insured 8 MED[address]ID [address] [place] [address] [id number] Susana Napoles Self - patient is the insured 8 [address]ICAID [address] [place] [address] [id number] Susana Napoles Self - patient is the insured 1 1 MED[employer] [address] [place] [address] [id number] Susana Napoles Self - patient is the insured 2 2 [facility] Medicare Assure [address] [address] [place] [address] [id number] Susana Napoles Self - patient is the insured 1 Medical (General) History Medical History History ICD Code High Blood Pressure Hyperlipidemia Surgical History Surgery Date(Month/Year)
[2025-01-09 11:40] VITALS: BP 118/94; PULSE 91; RESP 16; TEMP 36.8; O2SAT 98
== END 2025-01-09 11:40 ==
PROVIDERS: Emergency Provider Emergency Medicine; PCP Internal Medicine
DX: T78.40XA Allergy, unspecified, initial encounter (principal); F03.C0 Unspecified dementia, severe, without behavioral disturbance, psychotic disturbance, mood disturbance, and anxiety; I25.2 Old myocardial infarction; I12.9 Hypertensive chronic kidney disease with stage 1 through stage 4 chronic kidney disease, or unspecified chronic kidney disease; N18.30 Chronic kidney disease, stage 3 unspecified; E78.5 Hyperlipidemia, unspecified; E53.8 Deficiency of other specified B group vitamins; D50.9 Iron deficiency anemia, unspecified; Z95.5 Presence of coronary angioplasty implant and graft; Z90.710 Acquired absence of both cervix and uterus; Z90.722 Acquired absence of ovaries, bilateral; Z90.79 Acquired absence of other genital organ(s); Z90.49 Acquired absence of other specified parts of digestive tract; Z96.1 Presence of intraocular lens; Z98.42 Cataract extraction status, left eye; Z98.41 Cataract extraction status, right eye; X58.XXXA Exposure to other specified factors, initial encounter
CPT/HCPCS: 96372; 99283; A9270; J1100